=== PATIENT | female | born 1940 | race Caucasian/White ===

== ENCOUNTER 2020-03-24 12:30 | Outpatient (NON) | payer MEDICARE, SELFPAY ==
[2020-03-24 23:29] LABS: SARS-CoV-2 RNA PCR Positive
== END 2020-03-24 12:31 ==
LOC: ANHCOVIDDT 12:32
PROVIDERS: PCP Internal Medicine; Visit Provider Clinical Nurse Specialist
DX: U07.1 COVID-19 (principal)
CPT/HCPCS: C9803; U0003

== ENCOUNTER 2020-05-13 09:33 | Outpatient (CLI) | payer MEDICARE, SELFPAY ==
--- NOTE | ~2020-05-13 | US_ITS ---
EXAMINATION: US retroperitoneal comp, US retroperitoneal duplex ltd EXAM DATE: 05/13/2020 12:02 INDICATION: I10 - Essential (primary) hypertension HTN. TECHNIQUE: Multiple grayscale and Doppler images of the kidneys were obtained (by a technologist who performed the scan) and subsequently reviewed. Renal artery Dopplers. Compared to study dated 11/13/19 19. FINDINGS: There is bilateral renal cortical thinning. Right kidney: There is normal contour and increased echogenicity. It measures 9.5 x 5.0 x 5.0 centim eters. There are no focal renal lesions identified. There is no hydronephrosis. Left kidney: There is normal contour and increased echogenicity. It measures 8.5 x 3.5 x 4.0 centime ters. There are no focal renal lesions identified. There is no hydronephrosis. Bladder unremarkable. The aorta peak systolic velocity is 78 cm/s. The right renal artery peak systolic velocity is 140 cm/ s in the proximal segment, 87 cm/s in the mid segment, and 76 cm/s in the distal segment. The left re nal artery peak systolic velocity is 127 cm/s in the proximal segment, 225 cm/s in the mid segment, a nd 133 cm/s in the distal segment. Correlation made to noncontrast CT abdomen 03/01/2019 which demons trates small amount of arteriosclerosis at both renal artery origins. IMPRESSION: 1. Mildly elevated velocity in one out of 3 left renal artery readings, more likely spurious reading than renal artery stenosis given other 2 readings well within normal limits, and appearance on CT . 2. Echogenic renal cortices, medical renal disease. 3. Renal cortical thinning, atrophy. 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 Mildly elevated velocity in one out of 3 left renal artery readings, more l ikely spurious reading than renal artery stenosis given other 2 readings well w ithin normal limits, and appearance on CT 2018. 2. Echogenic renal cortices, medical renal disease. 3. Renal cortical thinning, atrophy.
[2020-05-13 10:24] LABS: Total Protein Urine Random 23 mg/dL
[2020-05-17 04:46] LABS: Albumin 4.3 g/dL (3.8-4.8); Alpha 1 Globulin 0.3 g/dL (0.2-0.3); Alpha 2 Globulin 0.9 g/dL (0.5-0.9); Beta 1 Globulin 0.5 g/dL (0.4-0.6); Gamma Globulin 0.7 g/dL (0.8-1.7)
[2020-05-17 13:51] LABS: Anti Nuclear Antibody Titer 1:40 (Negative)
== END 2020-05-13 09:34 | disposition home or self-care (01) ==
PROVIDERS: PCP Internal Medicine; Visit Provider Nurse Practitioner
DX: N17.9 Acute kidney failure, unspecified (principal); I12.9 Hypertensive chronic kidney disease with stage 1 through stage 4 chronic kidney disease, or unspecified chronic kidney disease; N18.30 Chronic kidney disease, stage 3 unspecified
CPT/HCPCS: 36415; 76770; 81050; 84155; 84156; 84165; 86038; 86039; 93976

== ENCOUNTER → 2020-10-08 09:49 | Outpatient (CLI) | payer MEDICARE, SELFPAY ==
--- NOTE | ~2020-10-08 | MR_ITS ---
EXAMINATION: MR brain/brain stem wo con EXAM DATE: 10/08/2020 10:49 INDICATION: R41.3 - Other amnesia other amnesia. Memory issues, forgetfulness. Difficulty with speech . History of colon and Breast cancer. TECHNIQUE: Magnetic resonance imaging (MRI) of the brain/brain stem obtained without contrast. Jose Alberto ohara T1, axial diffusion, gradient echo (T2*), T1, T2, FLAIR sequences obtained. Correlation is made t o head CT 2018. FINDINGS: There are no areas of restricted diffusion to suggest acute infarction. There is no acute hemorrhage seen on the T2*, a hemosiderin sensitive sequence. No intraparenchymal brain mass lesion. There is mild to moderate periventricular and subcortical T2/FLAIR signal hyperintensity, nonspecifi c but probably related to small vessel ischemic disease (microangiopathy). There is mild prominence of the sulci and ventricles related to cerebral atrophy. There are no extra-axial collections. Fl ow voids are seen in the cerebral arteries on the T2-weighted sequences consistent with their expecte d patency. Patient has had bilateral ocular lens surgery. Soft tissue is unremarkable. IMPRESSION: 1. No acute intracranial findings. 2. Chronic age related findings. Reviewed, dictated and finalized at location A.
[2020-10-08 10:19] LABS: Estimated Glomerular Filt Rate 27
== END ==
PROVIDERS: PCP Internal Medicine; Visit Provider Clinical Nurse Specialist
DX: R41.3 Other amnesia (principal)
CPT/HCPCS: 70551

== ENCOUNTER → 2020-11-09 09:42 | Outpatient (REF) | payer MEDICARE, SELFPAY | LOC: ANHLAB 09:42 | PROVIDERS: PCP Internal Medicine; Visit Provider Nurse Practitioner | DX: C44.719 Basal cell carcinoma of skin of left lower limb, including hip (principal) | CPT/HCPCS: 88305; 88331 ==

== ENCOUNTER 2020-11-21 00:41 | Observation (INO) | payer MEDICARE, SELFPAY ==
[2020-11-21] VITALS (9 sets, daily range): BP systolic 138–167; BP diastolic 52–59; PULSE 64–78; RESP 16–20; TEMP 36.4–36.5; O2SAT 95–100; BMI 22.1
--- NOTE | 2020-11-21 | ECHO_ITS ---
Patient Info Name: Nannette Nix Age: 80 years : 1940 Gender: Female Ht: 64 in Wt: 128 lbs BSA: 1.62 m2 HR: 68 bpm BP: 138 / 56 mmHg Heart Rhythm: Sinus Rhythm Technical Quality: Fair Exam Date: 11/21/2020 11:57 AM Exam Location: [facility] Pulmonary Patient Status: Outpatient Admit Date: 11/21/2020 Staff Ordering Physician: Guillermo Lal MD Neuro Intensivist Physician: LEANDRA Attending Provider: Guillermo Lal MD Referring Physician: Lukasz PERKINS; Exam Type: CA echo doppler color flow Study Info Complete two-dimentional, color flow and Doppler transthoracic echocardiogram is performed with agitated saline and with contrast to opacify the left ventricle and to improve the delineation of the left ventricle endocardial borders. Summary 1. Normal left ventricular size and function with good contractility of all segments. No segmental wall motion abnormality. Ejection fraction 66%. Grade 2 diastolic dysfunction is present. 2. Left atrial chamber dimension is mildly enlarged. 3. No pulmonary hypertension, estimated pulmonary arterial systolic pressure is 31 mmHg. 4. There is mild tricuspid valve regurgitation. 5. Normal sinus rhythm. Left Ventricle Left ventricular chamber dimension is normal. Left ventricular systolic function is normal, estimated at 65-70%. There is no increased left ventricular wall thickness. Left ventricular septal wall motion is normal. The left ventricular diastolic function is grade II diastolic dysfunction. Right Ventricle Right ventricular chamber dimension is normal. Right ventricular systolic function is normal. Left Atria Left atrial chamber dimension is mildly enlarged. Right Atria Right atrial chamber dimension is normal. Aortic Valve The aortic valve is trileaflet. There is no aortic valve sclerosis. There is no aortic valve stenosis. There is no aortic valve regurgitation. Pulmonic Valve The pulmonic valve is normal. There is no pulmonic valve stenosis. There is no pulmonic regurgitation. Mitral Valve The mitral valve has normal leaflets. There is no mitral valve stenosis. There is trace mitral valve regurgitation. Tricuspid Valve The tricuspid valve leaflets are normal. There is no significant tricuspid valve stenosis. There is mild tricuspid valve regurgitation. No pulmonary hypertension, estimated pulmonary arterial systolic pressure is 31 mmHg. Pericardium/Pleural The pericardium appears normal. There is no pericardial effusion. Inferior Vena Cava Normal inferior vena cava with >50% collapse upon inspiration consistent with Empty right atrial pressure, 10 mmHg. Aorta The aortic root size at the sinus of Valsalva is normal. The prox ascending aorta size is normal. Left Ventricular Outflow Tract Name Value Normal LVOT 2D LVOT Diameter 1.8 cm LVOT Doppler LVOT Peak Gradient 4 mmHg LVOT Mean Gradient 2 mmHg LVOT VTI 23 cm LVOT VTI/AV VTI Ratio 0.9 LVOT Stroke Volume 57 ml
--- NOTE | ~2020-11-21 | XR_ITS ---
EXAMINATION: XR chest 1V portable DATE: 11/21/2020 00:58 INDICATION: Chest pain TECHNIQUE: frontal view of the chest was obtained. COMPARISON: Chest radiograph dated 06/12/2018 FINDINGS: Unchanged eventration of the anterior right hemidiaphragm. Unchanged mild biapical pleural-parenchyma l scarring. No new airspace opacities, pulmonary edema, pleural effusion or pneumothorax. The cardiom ediastinal silhouette is normal with prominent left paracardial fat pad. Cholecystectomy clips in the right upper quadrant. IMPRESSION: 1. No acute cardiopulmonary disease. Reviewed, dictated and finalized at location A.
--- NOTE | 2020-11-21 00:49 | ECG_ITS ---
Measurements Intervals [place] Rate: 63 P: 35 [place]: 165 QRS: 34 QRSD: 98 T: 57 QT: 430 QTc: 443 Interpretive Statements SINUS RHYTHM BORDERLINE ST-T WAVE ABNORMALITY- ANT/HIGH LAT LEADS BASELINE ARTIFACT- I, II, III, AVR, AVL, AVF BORDERLINE ECG Electronically Signed On 11-21-2020 6:34:49 CDT by Andrea Jenkins D.O.
[2020-11-21 01:18] LABS: Basophils Percent Auto 0.6 % (0.2-1.2); Eosinophils Absolute Auto 0.1 K/mm3 (0-0.3); Eosinophils Percent Auto 0.8 % (0-4.4); Hematocrit 32.7 % (37.0-47.0); Hemoglobin 10.7 g/dL (12.0-15.0); Immature Granulocyte Absolute 0.02 K/mm3 (0.00-0.031); Immature Granulocyte Percent A 0.3 % (0-0.5); Lymphocytes Percent Auto 26.8 % (18.3-44.2); Mean Corpuscular HGB Conc 32.7 g/dl (32-36); Mean Corpuscular Volume 97.9 fl (80-100); Mean Platelet Volume 8.5 fl (7.4-10.4); Monocytes Absolute Auto 0.6 K/mm3 (0.1-0.6); Monocytes Percent Auto 9.1 % (2.6-8.5); Neutrophils Percent Auto 62.4 % (45.5-73.1); Platelet Count Result 243 k/mm3 (150-375); Red Blood Count 3.34 M/mm3 (4.2-5.4); Red Cell Distribution Width 13.1 % (11.5-14.5); White Blood Count 6.3 K/mm3 (4.5-10.0)
[2020-11-21 01:22] LABS: INR 0.9
[2020-11-21 01:23] LABS: Partial Thromboplastin Time 22.8 SECONDS (22.3-36.8)
[2020-11-21 01:27] LABS: Alanine Aminotransferase 89 U/L (4-35); Albumin Level 4.3 g/dL (3.5-5.1); Alkaline Phosphatase 126 U/L (38-126); Anion Gap 11 mmol/L (8-16); Aspartate Amino Transferase 180 U/L (14-36); Bilirubin,Total 0.5 mg/dL (0.2-1.3); Blood Urea Nitrogen 42 mg/dL (7-17); Calcium 9.4 mg/dL (8.4-10.2); Carbon Dioxide 17 mmol/L (22-30); Chloride 109 mmol/L (98-107); Estimated CRCL calculation 23 ml/min; Estimated Glomerular Filt Rate 33; Glucose 122 mg/dL (65-110); Potassium 4.3 mmol/L (3.4-5.0); Sodium 137 mmol/L (137-145)
[2020-11-21 01:39] LABS: Troponin I < 0.012 ng/mL (0.000-0.034)
[2020-11-21 03:02] LABS: Add Urine Microscopic? YES; Appearance Urine Clear (Clear); Bacteria Urine Trace /hpf; Bilirubin Urine Negative (Negative); Blood Urine Negative (Negative); Color Urine Yellow (Yellow); Glucose Urine UA Negative (Negative); Ketones Urine Negative (Negative); Leukocyte Esterase Ur 1+ LEU/UL (Negative); Mucus Urine Rare /lpf; Nitrate Urine Negative (Negative); Protein Urine Negative (Negative); RBC Urine 0-2 /hpf (0-2); Specific Grav Ur 1.015 (1.001-1.035); Urobilinogen Urine Negative mg/dL (<2.0); WBC Urine 16-20 /hpf
--- NOTE | 2020-11-21 04:29 | ED.CHESTPAIN ---
HPI - Chest Pain General Chief Complaint: Chest Pain Stated Complaint: chest pain/pressure Time Seen by Provider: 11/21/20 00:49 History of Present Illness HPI narrative: Patient presents with bilateral chest pain. Symptoms started approximate 1 hour prior to arrival to the ER. Her pain is constant was a pressure sensation there are any clear aggravating factors, and did not radiate. She called the ambulance as her symptoms were not improving she was given nitro in route and report her symptoms have greatly improved. She reports associated shortness of breath denies any nausea or diaphoresis. Related Data Home Medications Medication Instructions Recorded Confirmed acetaminophen [Tylenol] 650 mg PO PRN PRN 11/21/20 11/21/20 Allergies Allergy/AdvReac Type Severity Reaction Status Date / Time codeine Allergy Intermediate Rash Verified 11/21/20 06:13 Review of Systems Review of Systems: CONSTITUTIONAL: Denies fever, chills, or sweats. EYES: Denies visual changes, redness, or discharge. ENT: Denies rhinorrhea, congestion, sore throat, or otalgia. CARDIOVASCULAR: Denies palpitations, or edema. RESPIRATORY: Denies cough. GASTROINTESTINAL: Denies abdominal pain, nausea, vomiting, or diarrhea. GENITOURINARY: Denies dysuria or hematuria. SKIN: Denies rash or itching. MUSCULOSKELETAL: Denies back pain, joint pain, or myalgia. NEUROLOGIC: Denies headache, numbness, dizziness, or weakness. PSYCHIATRIC: Denies anxiety or depression. All systems reviewed & are unremarkable except as noted in HPI and below PMFSH Past Medical History Medical History Acute worsening of stage 3 chronic kidney disease Anemia Anxiety Basal cell carcinoma of face Breast cancer 1989 s/p lumpectomy to right, no chemo or radiation needed. Carotid stenosis Left 48% and right 55% 05/2018 Cholecystectomy planned 2013 CKD (chronic kidney disease) stage 3, GFR 30-59 ml/min Sees Dr. Willson COPD (chronic obstructive pulmonary disease) Deficient knowledge of combined anteroposterior colporrhaphy Depression Essential (primary) hypertension Former smoker GERD (gastroesophageal reflux disease) Hiatal hernia History of colon cancer Found after polyp removal, was removed with partial colectomy, no chemo or radiation needed Hyperlipidemia, unspecified Memory loss CECELIA (obstructive sleep apnea) Never completed sleep study Restless legs Shoulder arthritis Skin cancer of face Spinal stenosis Syncope 06/12/2018 Type 2 diabetes mellitus Diet controlled UTI (urinary tract infection) Vertigo Vitamin D deficiency Surgical History Surgical History H/O cataract removal with insertion of prosthetic lens H/O lumpectomy H/O: hysterectomy 1982 History of colonoscopy 2016 resulting in cauterization of a polyp and caused perforation requiring surgery and partial colon resection. History of partial surgical removal of colon Partial colectomy 2016 after polyp was removed and caused perforation of colon History of stress incontinence procedure using tension free vaginal tape Family History Family History Mother Cerebrovascular accident Hypertension Family history of transient ischemic attacks Sibling Family history of coronary artery disease Father Family history of transient ischemic attacks Patient's father is , Onset Age: 59 Family history of chronic obstructive pulmonary disease Colon cancer Other Family history of diabetes mellitus in first degree relative Social History Social History Social History: Patient smoked cigarettes 1-2 PPD for about 50 years and quit in 2012. She is exposed to second hand smoke. Denies alcohol use and drug use. She lives in [place] with her , Sid of 47 years. She has three daughter
[2020-11-21 04:43] LABS: Troponin I 0.012 ng/mL (0.000-0.034)
[2020-11-21] MEDS: SODIUM CHLORIDE 0.9% IV 1,000 ML 125 ML IV CONT ×2 (05:10→06:54)
--- NOTE | 2020-11-21 05:46 | ADMGEN ---
This patient, Nannette Nix, was admitted to Medical Room 348-01. Patient/family oriented to hospital policies and general routines including ID bracelet, bed and alarms, visiting hours, pain management, procedures, bathroom and other care routines, personal items, smoking policy, room service/diet, and visiting hours. Information on how to activate the Rapid Response Team has been discussed. Patient/Family are encouraged to report perceived risks to care and to ask questions if they do not understand what they are told or what they should do.
[2020-11-21 08:09] LABS: Troponin I < 0.012 ng/mL (0.000-0.034)
--- NOTE | 2020-11-21 09:26 | PM.IMHP ---
H&P: HPI History of Present Illness Date/Time: 11/21/20 09:26 Chief Complaint: Chest pain Narrative: This is a very pleasant 80-year-old woman who lives alone, who was brought to the emergency department last night for evaluation of chest pain. She has past medical history of hypertension, hyperlipidemia, GERD, depression, recent basal cell carcinoma removed from her left leg, CKD stage 3, and history of nicotine dependence. She reports that she was asleep and then woke up suddenly with significant chest pain is retrosternal, and felt burning and nature, although there was also a pressure component. This was associated with some shortness of breath. This is the part that worried her and she called her family and ultimately was transported to the ED. Reported some radiation to bilateral shoulders. No nausea, vomiting, or diaphoresis. She is unsure whether it is worse with activity or position although does not seem to be the case. In route to the hospital was given nitro with significant improvement. Currently it is resolved 0/10. She does have history of GERD. She is only on famotidine at home. Unclear why she is not on a PPI. She has history of hypertension for which he is on amlodipine and losartan. She has hyperlipidemia for which she is on atorvastatin. She is not diabetic that she is aware of. Family history of mother with coronary disease in her 60s. She smoked in the past for many years and quit 6 years ago. Review of Systems Review of Systems: All systems reviewed & are unremarkable except as noted in HPI and below PMFSH Past Medical History Medical History Acute worsening of stage 3 chronic kidney disease Anemia Anxiety Basal cell carcinoma of face Breast cancer 1989 s/p lumpectomy to right, no chemo or radiation needed. Carotid stenosis Left 48% and right 55% 05/2018 Cholecystectomy planned 2013 CKD (chronic kidney disease) stage 3, GFR 30-59 ml/min Sees Dr. Willson COPD (chronic obstructive pulmonary disease) Deficient knowledge of combined anteroposterior colporrhaphy Depression Essential (primary) hypertension Former smoker GERD (gastroesophageal reflux disease) Hiatal hernia History of colon cancer Found after polyp removal, was removed with partial colectomy, no chemo or radiation needed Hyperlipidemia, unspecified Memory loss CECELIA (obstructive sleep apnea) Never completed sleep study Restless legs Shoulder arthritis Skin cancer of face Spinal stenosis Syncope 06/12/2018 Type 2 diabetes mellitus Diet controlled UTI (urinary tract infection) Vertigo Vitamin D deficiency Surgical History Surgical History H/O cataract removal with insertion of prosthetic lens H/O lumpectomy H/O: hysterectomy 1982 History of colonoscopy 2016 resulting in cauterization of a polyp and caused perforation requiring surgery and partial colon resection. History of partial surgical removal of colon Partial colectomy 2016 after polyp was removed and caused perforation of colon History of stress incontinence procedure using tension free vaginal tape Family History Family History Mother Cerebrovascular accident Hypertension Family history of transient ischemic attacks Sibling Family history of coronary artery disease Father Family history of transient ischemic attacks Patient's father is , Onset Age: 59 Family history of chronic obstructive pulmonary disease Colon cancer Other Family history of diabetes mellitus in first degree relative Social History Social History Social History: Patient smoked cigarettes 1-2 PPD for about 50 years and quit in 2012. She is exposed to second hand smoke. Denies alcohol use and drug use. She lives in [place] with her ,
--- NOTE | 2020-11-21 11:25 | PC.NURSE ---
unable to give 0900 atorvastatin, pepcid, prozac, amlodipine, and cozaar on time, waiting for pharmacy to send them, pharmacy notified.
[2020-11-21] MEDS: FLUoxetine HCL 20 MG CAPSULE PO (11:53)
[2020-11-21] MEDS: FAMOTIDINE 10 MG TABLET PO (11:53)
[2020-11-21] MEDS: LOSARTAN POTASSIUM 50 MG TABLET PO (11:53)
[2020-11-21] MEDS: ATORVASTATIN 20 MG TABLET PO (11:53)
[2020-11-21] MEDS: amLODIPine BESYLATE 5 MG TABLET 10 MG PO (11:53)
[2020-11-21] MEDS: PANTOPRAZOLE 40 MG TABLET PO (11:53)
--- NOTE | 2020-11-21 13:48 | PM.CNCAR ---
Assessment and Plan Assessment and plan (1) Chest pain: Qualifiers: Chest pain type: unspecified Qualified Code(s): R07.9 - Chest pain, unspecified Code(s): R07.9 - Chest pain, unspecified Status: Acute Assessment and Plan: Patient's description of her CP is consistent with acute coronary syndrome. However all her troponins are negative and there are no wall motion abnormalities on her Echo. Her EKG does have some ST changes but these appear chronic. She does have multiple risk factors for CAD. Although OH has been ruled out, I think she needs further evaluation. She appears to be a low risk pt for discharge. Will have patient ambulate in the halls; if no problems perhaps discharge this afternoon for outpatient follow-up. Add aspirin 81 mg daily. Patient states that aspirin does not agree with her stomach but she has not tried low-dose. If she has problems with this then we can change to Plavix. TNG prn Change amlodipine to metoprolol XL 25 mg daily. Outpatient Lexiscan Patient will call if she has further problems. (2) Essential (primary) hypertension: Code(s): I10 - Essential (primary) hypertension Status: Acute Assessment and Plan: Controlled. (3) Hyperlipidemia, unspecified: Qualifiers: Hyperlipidemia type: unspecified Qualified Code(s): E78.5 - Hyperlipidemia, unspecified Code(s): E78.5 - Hyperlipidemia, unspecified Status: Acute Assessment and Plan: Takes atorvastatin (4) Carotid stenosis: Qualifiers: Laterality: bilateral Qualified Code(s): I65.23 - Occlusion and stenosis of bilateral carotid arteries Code(s): I65.29 - Occlusion and stenosis of unspecified carotid artery Status: Acute Assessment and Plan: Carotid ultrasound in 2019 showed moderate bilateral disease and she has a prominent left carotid bruit. Patient is unaware that she has carotid stenosis Treat with anti-platelet agent and atorvastatin. (5) Chronic kidney disease, stage 3: Code(s): N18.30 - Chronic kidney disease, stage 3 unspecified Status: Acute Assessment and Plan: STage , GFR 33 ml/min (6) Chronic anemia: Code(s): D64.9 - Anemia, unspecified Status: Acute Assessment and Plan: Possibly 2nd to CKD. FE level good at 66 in Apr 2020 and not microcytic. (7) Elevated LFTs: Code(s): R79.89 - Other specified abnormal findings of blood chemistry Status: Acute Assessment and Plan: 2d to statin? (8) GERD (gastroesophageal reflux disease): Code(s): K21.9 - Gastro-esophageal reflux disease without esophagitis Status: Acute Assessment and Plan: Change famotidine to a PPI? History of Present Illness History of Present Illness Consult date/time: 11/21/20 13:48 Requesting physician: Guillermo Lal MD Consult reason: chest pain Reason For Visit: Chest Pain Narrative: Date of service 11/21/2020: Ms. Nannette Nix is an 80-year-old female whom I was asked to see at the request of Dr. Lal for my advice and opinion regarding her chest pain in consultation. She has hypertension, hyperlipidemia and carotid disease but no history of any heart problems. The patient was in normal state of health yesterday although she had some diarrhea, which is not terribly unusual for her. She was in bed watching TV and Around midnightdeveloped substernal chest heaviness like someone was sitting on her, associated with shortness of breath. There is no radiation and no pleuritic component. it seemed to be getting worse so she called her daughters who called EMS. she was given 2 nitroglycerins with resolution and has had no further discomfort today. Typically the patient is active with yd work and has no partic
--- NOTE | 2020-11-21 13:53 | ECG_ITS ---
Measurements Intervals [place] Rate: 70 P: 42 [place]: 187 QRS: 38 QRSD: 92 T: 62 QT: 401 QTc: 433 Interpretive Statements SINUS RHYTHM BORDERLINE ST ABNORMALITY- ANTEROLAT/HIGH LAT LEADS BASELINE ARTIFACT- I, II, III, AVR, AVL, AVF, V1 BORDERLINE ECG Electronically Signed On 11-21-2020 17:18:36 CDT by Andrea Jenkins D.O.
--- NOTE | 2020-11-21 15:47 | PM.DS ---
DS: Admitting Diagnosis Admitting Diagnosis Chest pain DS: Discharge Diagnosis Discharge Diagnosis (1) Elevated LFTs: Code(s): R79.89 - Other specified abnormal findings of blood chemistry Status: Acute (2) GERD (gastroesophageal reflux disease): Code(s): K21.9 - Gastro-esophageal reflux disease without esophagitis Status: Acute (3) Chronic kidney disease, stage 3: Code(s): N18.30 - Chronic kidney disease, stage 3 unspecified Status: Acute (4) Angina pectoris: Code(s): I20.9 - Angina pectoris, unspecified Status: Acute DS: Summary Hospital Course Hospital Course: This is a very pleasant 80-year-old woman who lives independently at home, who was brought to the emergency department 11/20 night for evaluation of chest pain. She has past medical history of hypertension, hyperlipidemia, GERD, depression, recent basal cell carcinoma removed from her left leg, CKD stage 3, and history of nicotine dependence. She reports that she was asleep and then woke up suddenly with significant chest pain is retrosternal, and felt burning and nature, although there was also a pressure component. This was associated with some shortness of breath. This is the part that worried her and she called her family and ultimately was transported to the ED. Reported some radiation to bilateral shoulders. No nausea, vomiting, or diaphoresis. In route to the hospital was given nitro with significant improvement. It was resolved when she was followed in the medical unit. She does have history of GERD. She is only on famotidine at home. She has history of hypertension for which he is on amlodipine and losartan. She has hyperlipidemia for which she is on atorvastatin. She is not diabetic that she is aware of. Family history of mother with coronary disease in her 60s. She smoked in the past for many years and quit 6 years ago. She was admitted to the hospital for close monitoring and echocardiogram was done showing normal left ventricular size and function, EF 66%, grade 2 diastolic dysfunction as noted, no pulmonary hypertension, mild tricuspid valve regurgitation, no wall motion abnormalities noted. Her EKG did show some ST-T wave abnormalities that were noted on prior EKG with no change. Her troponins were followed and were all negative. Throughout her hospital stay she did not have recurrence of her chest pain. She was evaluated by Cardiology. Her atorvastatin was continued. She was initiated on baby aspirin. Her amlodipine was changed to metoprolol. Plan for outpatient Lexiscan. Given question possible contribution updated to her symptoms, pantoprazole was initiated. Continue on daily basis in the outpatient setting this is symptoms. Elevated liver function tests were noted on presentation. These have been elevated and fluctuated since at least 2018. The etiology is unclear. Recommend outpatient follow-up reassessment. She was noted to have mild degree of anemia during the hospitalization. This was stable from prior. Likely in the setting of her moderate chronic kidney disease. From a renal perspective, her creatinine baseline noted to be 1.4-1.8, and she was noted to be a baseline kidney function which should continue to be monitored in the outpatient setting. She did describe some urinary tract infection symptoms on presentation. Urinalysis was suggestive of infection. She was initiated on ceftriaxone. Culture was pending at the time of discharge. Will be discharged on ciprofloxacin twice daily for 5 days. Time Spent with Patient Time attestation: Total time spent providing and/or coordinating discharge services: 26 min Exam Narrative: Gen: Alert, NAD Abd: Soft, NT, ND Heart: RRR Lungs: CTAB Ext: No lower extremity edema DS: Data Data Completed and Pending Labs on day of discharge: Labs from last 24 hours 11/21/20 11/21/20 11/21/20 07:39 04:09 02:44 WBC RBC Hgb Hct M
== END 2020-11-21 17:55 | disposition home or self-care (01) ==
LOC: ANHED 04:35 → ANH3MED 05:06
PROVIDERS: Admitting Provider Internal Medicine; Emergency Provider Emergency Medicine; PCP Internal Medicine; Visit Provider Internal Medicine Nephrology
DX: I20.9 Angina pectoris, unspecified (principal); I12.9 Hypertensive chronic kidney disease with stage 1 through stage 4 chronic kidney disease, or unspecified chronic kidney disease; R79.89 Other specified abnormal findings of blood chemistry; K21.9 Gastro-esophageal reflux disease without esophagitis; E11.22 Type 2 diabetes mellitus with diabetic chronic kidney disease; N18.30 Chronic kidney disease, stage 3 unspecified; E78.5 Hyperlipidemia, unspecified; F32.9 Major depressive disorder, single episode, unspecified; Z85.828 Personal history of other malignant neoplasm of skin; Z85.3 Personal history of malignant neoplasm of breast; Z87.891 Personal history of nicotine dependence; R06.02 Shortness of breath; N39.0 Urinary tract infection, site not specified; I65.23 Occlusion and stenosis of bilateral carotid arteries; D64.9 Anemia, unspecified
CPT/HCPCS: 36415; 71045; 80053; 81001; 84484; 85025; 85610; 85730; 87086; 87088; 93005; 93306; 96361; 96365; 99285; A9270; G0378; J0696; J7030

== ENCOUNTER 2021-01-20 11:00 | Emergency (ER) | payer MEDICARE, SELFPAY ==
[2021-01-20] VITALS (14 sets, daily range): BP systolic 155–197; BP diastolic 63–102; PULSE 54–75; RESP 14–34; TEMP 36.3–36.7; O2SAT 98–100
--- NOTE | ~2021-01-20 | XR_ITS ---
EXAMINATION: XR chest 2V DATE: 01/20/2021 12:55 INDICATION: Intermittent epigastric pain TECHNIQUE: PA and lateral views of the chest were obtained. COMPARISON: Chest radiograph dated 11/21/2020 FINDINGS: Unchanged eventration of the anterior right hemidiaphragm. Mild reticular opacities at the left lower lung zone which appears to correspond to a region of bronchiectatic change on the CT of the abdomen dated 03/01/2019. No new airspace opacities, pulmonary edema, pleural effusion or pneumothorax. The c ardiomediastinal silhouette is normal. Cholecystectomy clips in right upper quadrant. IMPRESSION: 1. Chronic mild bronchiectatic changes in the left lower lobe. No acute cardiopulmonary disease. Reviewed, dictated and finalized at location A. IMPRESSION: 1. Chronic mild bronchiectatic changes in the left lower lobe. No acute cardiop ulmonary disease.
--- NOTE | 2021-01-20 12:31 | ECG_ITS ---
Measurements Intervals [place] Rate: 64 P: 39 CT: 151 QRS: 43 QRSD: 94 T: 63 QT: 413 QTc: 426 Interpretive Statements SINUS RHYTHM ST ABNORMALITY IN ANTEROLATERAL LEADS- CONSIDER ISCHEMIA BASELINE ARTIFACT- I, III, AVR, AVL ABNORMAL ECG Electronically Signed On 01-20-2021 12:50:26 CDT by Andrea Jenkins D.O.
[2021-01-20 12:47] LABS: Basophils Percent Auto 0.5 % (0.2-1.2); Eosinophils Percent Auto 0.3 % (0-4.4); Hematocrit 32.8 % (37.0-47.0); Hemoglobin 10.9 g/dL (12.0-15.0); Immature Granulocyte Absolute 0.02 K/mm3 (0.00-0.031); Immature Granulocyte Percent A 0.3 % (0-0.5); Lymphocytes Absolute Auto 1.37 K/mm3 (0.9-3.2); Lymphocytes Percent Auto 18.2 % (18.3-44.2); Mean Corpuscular HGB Conc 33.2 g/dl (32-36); Mean Corpuscular Hemoglobin 32.6 pg (26-34); Mean Corpuscular Volume 98.2 fl (80-100); Mean Platelet Volume 8.3 fl (7.4-10.4); Monocytes Absolute Auto 0.6 K/mm3 (0.1-0.6); Monocytes Percent Auto 7.6 % (2.6-8.5); Neutrophils Absolute Auto 5.5 K/mm3 (1.3-6.7); Neutrophils Percent Auto 73.1 % (45.5-73.1); Platelet Count Result 219 k/mm3 (150-375); Red Blood Count 3.34 M/mm3 (4.2-5.4); Red Cell Distribution Width 12.7 % (11.5-14.5); White Blood Count 7.5 K/mm3 (4.5-10.0)
[2021-01-20 13:00] LABS: Partial Thromboplastin Time 24.6 SECONDS (22.3-36.8); Prothrombin Time 13.2 Seconds (11.1-14.7)
[2021-01-20 13:05] LABS: Anion Gap 11 mmol/L (8-16); Blood Urea Nitrogen 35 mg/dL (7-17); Calcium 9.4 mg/dL (8.4-10.2); Carbon Dioxide 24 mmol/L (22-30); Chloride 105 mmol/L (98-107); Estimated CRCL calculation 21 ml/min; Estimated Glomerular Filt Rate 33; Glucose 120 mg/dL (65-110); Potassium 3.9 mmol/L (3.4-5.0); Sodium 140 mmol/L (137-145)
[2021-01-20 13:17] LABS: Troponin I < 0.012 ng/mL (0.000-0.034)
--- NOTE | 2021-01-20 15:31 | ED.RECABL ---
HPI - Recheck/Abnormal Lab/Rx General Chief Complaint: Recheck/Abnormal Lab/Rx Stated Complaint: high blood pressure Time Seen by Provider: 01/20/21 14:58 Source: patient and family Mode of arrival: ambulatory Limitations: no limitations History of Present Illness HPI narrative: This is a 80 year old female that presents to the ER for high blood pressure. Reports since yesterday she has been having episodes of a burning pain that radiates from her toes all the way into her chest. This lasts for a couple of minutes and resolves on its own. They have been taking her blood pressure at home. It has been elevated to the 200s systolic. Reports they called her primary today who prompted them to bring her to the ER for evaluation. Denies fever, shortness of breath, cough, vomiting, or dysuria. Related Data Home Medications Medication Instructions Recorded Confirmed acetaminophen [Tylenol] 650 mg PO PRN PRN 11/21/20 11/27/20 Allergies Allergy/AdvReac Type Severity Reaction Status Date / Time codeine Allergy Intermediate Rash Verified 11/21/20 06:13 Review of Systems Review of Systems: CONSTITUTIONAL: Denies fever CARDIOVASCULAR: Denies chest pain or edema. RESPIRATORY: Denies cough or dyspnea. GASTROINTESTINAL: Denies abdominal pain, nausea, vomiting GENITOURINARY: Denies dysuria NEUROLOGIC: Denies numbness, or weakness. All systems reviewed & are unremarkable except as noted in HPI and below PMFSH Past Medical History Medical History Acute worsening of stage 3 chronic kidney disease Anemia Anxiety Basal cell carcinoma of face Breast cancer 1989 s/p lumpectomy to right, no chemo or radiation needed. Carotid stenosis Left 48% and right 55% 05/2018 Cholecystectomy planned 2013 CKD (chronic kidney disease) stage 3, GFR 30-59 ml/min Sees Dr. Willson COPD (chronic obstructive pulmonary disease) Deficient knowledge of combined anteroposterior colporrhaphy Depression Essential (primary) hypertension Former smoker GERD (gastroesophageal reflux disease) Hiatal hernia History of colon cancer Found after polyp removal, was removed with partial colectomy, no chemo or radiation needed Hyperlipidemia, unspecified Memory loss CECELIA (obstructive sleep apnea) Never completed sleep study Restless legs Shoulder arthritis Skin cancer of face Spinal stenosis Syncope 06/12/2018 Type 2 diabetes mellitus Diet controlled UTI (urinary tract infection) Vertigo Vitamin D deficiency Surgical History Surgical History H/O cataract removal with insertion of prosthetic lens H/O lumpectomy H/O: hysterectomy 1982 History of colonoscopy 2016 resulting in cauterization of a polyp and caused perforation requiring surgery and partial colon resection. History of partial surgical removal of colon Partial colectomy 2016 after polyp was removed and caused perforation of colon History of stress incontinence procedure using tension free vaginal tape Family History Family History Mother Cerebrovascular accident Hypertension Family history of transient ischemic attacks Sibling Family history of coronary artery disease Father Family history of transient ischemic attacks Patient's father is , Onset Age: 59 Family history of chronic obstructive pulmonary disease Colon cancer Other Family history of diabetes mellitus in first degree relative Social History Social History Social History: Patient smoked cigarettes 1-2 PPD for about 50 years and quit in 2012. She is exposed to second hand smoke. Denies alcohol use and drug use. She lives in [place] alone. She previously was to , Sid of 47 years. She has three daughters. 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 Smoking status: Angelia
--- NOTE | 2021-01-20 16:20 | PC.NURSE ---
RN to bedside to start IV and administer ordered meds. Pt denies any complaints currently, states she feels she does not need the ordered medication and also states that she would like to go home if medically cleared. Pt informed of need for urine specimen, given cup and patient walking to bathroom to provide specimen. Will speak with MD.
[2021-01-20 16:21] LABS: Alanine Aminotransferase 41 U/L (4-35); Albumin Level 4.7 g/dL (3.5-5.1); Alkaline Phosphatase 106 U/L (38-126); Aspartate Amino Transferase 44 U/L (14-36); Bilirubin,Total 0.6 mg/dL (0.2-1.3); Lipase 277 U/L (23-300)
[2021-01-20 16:25] LABS: Troponin I < 0.012 ng/mL (0.000-0.034)
[2021-01-20 16:53] LABS: NT Pro B Type Natriuretic Pept 653 pg/mL (5-100)
[2021-01-20 17:00] LABS: Add Urine Microscopic? YES; Appearance Urine Clear (Clear); Bilirubin Urine Negative (Negative); Blood Urine Negative (Negative); Color Urine Yellow (Yellow); Glucose Urine UA Negative (Negative); Ketones Urine Negative (Negative); Leukocyte Esterase Ur Negative LEU/UL (Negative); Mucus Urine Rare /lpf; Nitrate Urine Negative (Negative); Protein Urine 2+ mg/dL (Negative); Specific Grav Ur 1.023 (1.001-1.035); Squamous Epithelial Cell Urine Rare /hpf (Few); Urobilinogen Urine Negative mg/dL (<2.0); WBC Urine 0-3 /hpf
[2021-01-20] MEDS: LOSARTAN POTASSIUM 50 MG TABLET PO (18:00)
== END 2021-01-20 19:31 | disposition home or self-care (01) ==
PROVIDERS: Emergency Medicine; Physician Assistant; Emergency Provider Emergency Medicine; PCP Internal Medicine
DX: I12.9 Hypertensive chronic kidney disease with stage 1 through stage 4 chronic kidney disease, or unspecified chronic kidney disease (principal); N18.30 Chronic kidney disease, stage 3 unspecified; E11.22 Type 2 diabetes mellitus with diabetic chronic kidney disease; D64.9 Anemia, unspecified; J44.9 Chronic obstructive pulmonary disease, unspecified; E78.5 Hyperlipidemia, unspecified; G47.30 Sleep apnea, unspecified; K21.9 Gastro-esophageal reflux disease without esophagitis; E55.9 Vitamin D deficiency, unspecified; G25.81 Restless legs syndrome; F41.9 Anxiety disorder, unspecified; F32.9 Major depressive disorder, single episode, unspecified; Z85.038 Personal history of other malignant neoplasm of large intestine; Z85.3 Personal history of malignant neoplasm of breast; Z85.828 Personal history of other malignant neoplasm of skin; Z87.440 Personal history of urinary (tract) infections; Z98.49 Cataract extraction status, unspecified eye; Z96.1 Presence of intraocular lens; Z90.49 Acquired absence of other specified parts of digestive tract; Z77.22 Contact with and (suspected) exposure to environmental tobacco smoke (acute) (chronic); Z87.891 Personal history of nicotine dependence; R94.31 Abnormal electrocardiogram [ECG] [EKG]; R91.8 Other nonspecific abnormal finding of lung field
CPT/HCPCS: 36415; 71046; 80048; 80076; 81001; 83690; 83880; 84484; 85025; 85610; 85730; 93005; 99284; A9270

== ENCOUNTER 2021-03-12 10:38 | Emergency (ER) | payer MEDICARE, SELFPAY ==
--- NOTE | ~2021-03-12 | CT_ITS ---
EXAMINATION: CT abdomen pelvis wo con DATE: 03/12/2021 15:05 INDICATION: Diarrhea. Elevated lipase. TECHNIQUE: Computed tomography (CT) of the abdomen and pelvis was performed without intravenous contr ast. Automated exposure control and iterative reconstruction technique were employed. The dose-length product was 239.03 mGy-cm. COMPARISON: None FINDINGS: Chronic small region of subpleural likely radiation fibrosis along the anterior right middle lobe. Mi nimal scarring is fissure with a couple small calcified nodules in the right middle lobe consistent w ith old granulomatous disease. Mild bronchiectasis the lung bases most prominent in the anterobasilar left lower lobe. The prior 9 mm left lower lobe nodule has resolved. Heart size is normal. Atheroscl erotic coronary artery calcific location. No pericardial or pleural effusion. Small sliding-type hiat al hernia. Cholecystectomy clips the gallbladder fossa. Liver, spleen, pancreas and bilateral adrenal glands are normal. Likely age-related mild to moderate bilateral renal cortical atrophy. Cluster of 3 stones measuring 3-5 mm at the lower pole of the left kidney. No ureteral stones or hydronephrosis. Fluid throughout the colon consistent with diarrhea. Postoperative change of prior right hemicolecto my with ileocolic anastomosis in the right lower quadrant. No bowel obstruction. Bladder is normal. N o free intraperitoneal gas or fluid. No pathologically enlarged abdominal or pelvic lymphadenopathy. There is calcified atherosclerosis of the aorta and many of the other arteries. Severe lumbar spondyl osis. IMPRESSION: 1. Normal appearance of the pancreas although mild acute interstitial pancreatitis can be radiographi deborah occult. 2. Fluid throughout the colon consistent with diarrhea. No other acute intra-abdominal/pelvic process . 3. Small sliding-type hiatal hernia. 4. Likely age-related moderate bilateral renal cortical atrophy with nonobstructing left nephrolithia sis. Reviewed, dictated and finalized at location H. [employer] IMPRESSION: 1. Normal appearance of the pancreas although mild acute interstitial pancreati tis can be radiographically occult. 2. Fluid throughout the colon consistent with diarrhea. No other acute intra-ab dominal/pelvic process. 3. Small sliding-type hiatal hernia. 4. Likely age-related moderate bilateral renal cortical atrophy with nonobstruc ting left nephrolithiasis.
[2021-03-12 11:20] VITALS: BP 144/52; PULSE 66; RESP 26; TEMP 36.8; O2SAT 100
[2021-03-12 11:36] LABS: Basophils Percent Auto 0.4 % (0.2-1.2); Eosinophils Percent Auto 0.4 % (0-4.4); Hematocrit 34.6 % (37.0-47.0); Hemoglobin 11.6 g/dL (12.0-15.0); Immature Granulocyte Absolute 0.04 K/mm3 (0.00-0.031); Immature Granulocyte Percent A 0.5 % (0-0.5); Lymphocytes Absolute Auto 1.32 K/mm3 (0.9-3.2); Lymphocytes Percent Auto 16.4 % (18.3-44.2); Mean Corpuscular HGB Conc 33.5 g/dl (32-36); Mean Corpuscular Volume 95.6 fl (80-100); Mean Platelet Volume 8.3 fl (7.4-10.4); Monocytes Absolute Auto 0.6 K/mm3 (0.1-0.6); Monocytes Percent Auto 7.7 % (2.6-8.5); Neutrophils Percent Auto 74.6 % (45.5-73.1); Platelet Count Result 278 k/mm3 (150-375); Red Blood Count 3.62 M/mm3 (4.2-5.4); Red Cell Distribution Width 13.2 % (11.5-14.5)
[2021-03-12 11:51] LABS: Alanine Aminotransferase 60 U/L (4-35); Albumin Level 4.4 g/dL (3.5-5.1); Alkaline Phosphatase 118 U/L (38-126); Anion Gap 11 mmol/L (8-16); Aspartate Amino Transferase 41 U/L (14-36); Bilirubin,Total 0.5 mg/dL (0.2-1.3); Blood Urea Nitrogen 40 mg/dL (7-17); Calcium 9.4 mg/dL (8.4-10.2); Carbon Dioxide 18 mmol/L (22-30); Chloride 106 mmol/L (98-107); Estimated CRCL calculation 20 ml/min; Estimated Glomerular Filt Rate 27; Glucose 118 mg/dL (65-110); Potassium 4.3 mmol/L (3.4-5.0); Sodium 135 mmol/L (137-145)
--- NOTE | 2021-03-12 11:54 | PC.NURSE ---
Pt unable to give urine sample at this time
[2021-03-12 12:20] LABS: Lipase 9165 U/L (23-300)
--- NOTE | 2021-03-12 12:36 | ED.NAVMDI ---
HPI - Nausea/Vomiting/Diarrhea General Chief complaint: Nausea/Vomiting/Diarrhea Stated complaint: diarrhea Time Seen by Provider: 03/12/21 12:19 Source: patient and family Mode of arrival: ambulatory Limitations: no limitations History of Present Illness HPI Narrative: Patient is an 80-year-old female complaining of diarrhea, loose watery, nonbloody x1 week. Patient denies any abdominal pain, nausea, vomiting, fever or chills. Patient denies any recent hospitalization or antibiotic use. Patient has no other complaints. Related Data Home Medications Medication Instructions Recorded Confirmed acetaminophen [Tylenol] 650 mg PO PRN PRN 11/21/20 01/28/21 Allergies Allergy/AdvReac Type Severity Reaction Status Date / Time codeine Allergy Intermediate Rash Verified 11/21/20 06:13 Review of Systems Review of Systems: All systems reviewed & are unremarkable except as noted in HPI and below Constitutional: Constitutional: Denies body ache(s), Denies chills, Denies excessive sweating, Denies fatigue, Denies fever(s), Denies headache(s), Denies lethargy, Denies malaise, Denies weakness and Denies weight loss Eyes: Eyes: Denies blurry vision, Denies change in vision and Denies loss of vision ENT: Denies dizziness, Denies ear discharge, Denies headache(s), Denies lip swelling, Denies epistaxis, Denies nasal congestion, Denies neck pain, Denies throat swelling and Denies tongue swelling Cardiovascular: Cardiovascular: Denies chest pain, Denies chest pain at rest, Denies chest pain with activity, Denies diaphoresis, Denies rapid heart rate, Denies edema, Denies irregular heart rhythm, Denies lightheadedness, Denies palpitations, Denies dyspnea and Denies dyspnea on exertion Respiratory: Respiratory: Denies chest congestion, Denies cough, Denies hemoptysis, Denies dyspnea and Denies dyspnea on exertion Gastrointestinal: Gastrointestinal: Denies abdominal pain, Denies melena, Denies hematochezia, Denies nausea, Denies vomiting and Denies hematemesis Musculoskeletal: Musculoskeletal: Denies abnormal gait, Denies deformity, Denies joint swelling, Denies limited range of motion, Denies neck pain and Denies numbness Neurologic: Denies Abnormal speech present, Denies abnormal gait, Denies confusion, Denies dizziness, Denies headache(s), Denies focal weakness, Denies loss of vision, Denies numbness, Denies Other visual disturbances, Denies Sensory deficit (Neuro) and Denies weakness Psychiatric: Psychiatric: Denies confusion, Denies depression, Denies auditory hallucinations, Denies homicidal ideation and Denies suicidal ideation Endocrine: Endocrine: Denies cold intolerance, Denies excessive sweating, Denies fatigue, Denies heat intolerance and Denies palpitations Hematologic/Lymphatic: Hematologic/Lymphatic: Denies easy bleeding and Denies easy bruising Allergic/Immunologic: Allergic/Immunologic: Denies lip swelling, Denies throat swelling and Denies tongue swelling PMFSH Past Medical History Medical History Acute worsening of stage 3 chronic kidney disease Anemia Anxiety Basal cell carcinoma of face Breast cancer 1989 s/p lumpectomy to right, no chemo or radiation needed. Carotid stenosis Left 48% and right 55% 05/2018 Cholecystectomy planned 2013 CKD (chronic kidney disease) stage 3, GFR 30-59 ml/min Sees Dr. Willson COPD (chronic obstructive pulmonary disease) Deficient knowledge of combined anteroposterior colporrhaphy Depression Essential (primary) hypertension Former smoker GERD (gastroesophageal reflux disease) Hiatal hernia History of colon cancer Found after polyp removal, was removed with partial colectomy, no chemo or radiation needed Hyperlipidemia, unspecified Memory loss CECELIA (obstructive sleep apnea) Never completed sleep study Restless legs Shoulder arthritis Skin cancer of face Spinal stenosis Syncope 06/12/2018 Type 2 diabetes mellitus Diet controlled
[2021-03-12] MEDS: LACTATED RINGERS 1,000 ML 999 ML IV CONT (12:49)
[2021-03-12 13:00] VITALS: BP 135/50; PULSE 65; RESP 22; O2SAT 100
[2021-03-12 15:16] VITALS: BP 140/74; PULSE 78; RESP 18; O2SAT 100
[2021-03-12] MEDS: metroNIDAZOLE 250 MG TABLET 500 MG PO (15:58)
== END 2021-03-12 16:07 | disposition home or self-care (01) ==
PROVIDERS: Emergency Medicine; Emergency Provider Emergency Medicine; PCP Internal Medicine
DX: R74.8 Abnormal levels of other serum enzymes (principal); R19.7 Diarrhea, unspecified; I12.9 Hypertensive chronic kidney disease with stage 1 through stage 4 chronic kidney disease, or unspecified chronic kidney disease; E11.22 Type 2 diabetes mellitus with diabetic chronic kidney disease; N18.30 Chronic kidney disease, stage 3 unspecified; J44.9 Chronic obstructive pulmonary disease, unspecified; E78.5 Hyperlipidemia, unspecified; Z87.891 Personal history of nicotine dependence; Z85.3 Personal history of malignant neoplasm of breast; Z85.038 Personal history of other malignant neoplasm of large intestine
CPT/HCPCS: 36415; 74176; 80053; 83690; 85025; 96360; 99284; A9270; J7120

== ENCOUNTER 2021-03-30 06:05 | Emergency (ER) | payer MEDICARE, SELFPAY ==
[2021-03-30 06:19] VITALS: BP 159/73; PULSE 79; RESP 22; TEMP 36.6; O2SAT 100
[2021-03-30 06:27] VITALS: O2SAT 100
[2021-03-30 07:13] VITALS: BP 111/66; PULSE 73; RESP 18; O2SAT 100
[2021-03-30 07:22] LABS: Basophils Percent Auto 0.5 % (0.2-1.2); Eosinophils Percent Auto 0.7 % (0-4.4); Hematocrit 37.3 % (37.0-47.0); Hemoglobin 12.1 g/dL (12.0-15.0); Immature Granulocyte Absolute 0.02 K/mm3 (0.00-0.031); Immature Granulocyte Percent A 0.3 % (0-0.5); Lymphocytes Absolute Auto 1.34 K/mm3 (0.9-3.2); Lymphocytes Percent Auto 23.2 % (18.3-44.2); Mean Corpuscular HGB Conc 32.4 g/dl (32-36); Mean Corpuscular Hemoglobin 31.5 pg (26-34); Mean Corpuscular Volume 97.1 fl (80-100); Mean Platelet Volume 8.8 fl (7.4-10.4); Monocytes Absolute Auto 0.5 K/mm3 (0.1-0.6); Monocytes Percent Auto 9.4 % (2.6-8.5); Neutrophils Absolute Auto 3.8 K/mm3 (1.3-6.7); Neutrophils Percent Auto 65.9 % (45.5-73.1); Platelet Count Result 248 k/mm3 (150-375); Red Blood Count 3.84 M/mm3 (4.2-5.4); Red Cell Distribution Width 13.4 % (11.5-14.5); White Blood Count 5.8 K/mm3 (4.5-10.0)
--- NOTE | 2021-03-30 07:24 | ED.NAVMDI ---
HPI - Nausea/Vomiting/Diarrhea General Chief complaint: Nausea/Vomiting/Diarrhea Stated complaint: runny stools Time Seen by Provider: 03/30/21 07:11 Source: patient Mode of arrival: ambulatory Limitations: no limitations History of Present Illness HPI Narrative: Patient is an 80-year-old female complaining of diarrhea, loose, watery nonbloody started approximately 3 weeks ago. Patient was seen here 2 weeks ago for the same complaint and was prescribed Flagyl. Patient denies abdominal pain, nausea, vomiting, fever or chills. Related Data Home Medications Medication Instructions Recorded Confirmed acetaminophen [Tylenol] 650 mg PO PRN PRN 11/21/20 01/28/21 amlodipine 03/30/21 amlodipine 03/30/21 Allergies Allergy/AdvReac Type Severity Reaction Status Date / Time codeine Allergy Intermediate Rash Verified 03/30/21 06:27 Review of Systems Review of Systems: All systems reviewed & are unremarkable except as noted in HPI and below Constitutional: Constitutional: Denies body ache(s), Denies chills, Denies excessive sweating, Denies fatigue, Denies fever(s), Denies headache(s), Denies lethargy, Denies malaise, Denies weakness and Denies weight loss Eyes: Eyes: Denies blurry vision, Denies change in vision and Denies loss of vision ENT: Denies dizziness, Denies ear discharge, Denies headache(s), Denies lip swelling, Denies epistaxis, Denies nasal congestion, Denies neck pain, Denies throat swelling and Denies tongue swelling Cardiovascular: Cardiovascular: Denies chest pain, Denies chest pain at rest, Denies chest pain with activity, Denies diaphoresis, Denies rapid heart rate, Denies edema, Denies irregular heart rhythm, Denies lightheadedness, Denies palpitations, Denies dyspnea and Denies dyspnea on exertion Respiratory: Respiratory: Denies chest congestion, Denies cough, Denies hemoptysis, Denies dyspnea and Denies dyspnea on exertion Gastrointestinal: Gastrointestinal: Denies abdominal pain, Denies melena, Denies hematochezia, Denies nausea, Denies vomiting and Denies hematemesis Musculoskeletal: Musculoskeletal: Denies abnormal gait, Denies deformity, Denies joint swelling, Denies limited range of motion, Denies neck pain and Denies numbness Neurologic: Denies Abnormal speech present, Denies abnormal gait, Denies confusion, Denies dizziness, Denies headache(s), Denies focal weakness, Denies loss of vision, Denies numbness, Denies Other visual disturbances, Denies Sensory deficit (Neuro) and Denies weakness Psychiatric: Psychiatric: Denies confusion, Denies depression, Denies auditory hallucinations, Denies homicidal ideation and Denies suicidal ideation Endocrine: Endocrine: Denies cold intolerance, Denies excessive sweating, Denies fatigue, Denies heat intolerance and Denies palpitations Hematologic/Lymphatic: Hematologic/Lymphatic: Denies easy bleeding and Denies easy bruising Allergic/Immunologic: Allergic/Immunologic: Denies lip swelling, Denies throat swelling and Denies tongue swelling PMFSH Past Medical History Medical History Acute worsening of stage 3 chronic kidney disease Anemia Anxiety Basal cell carcinoma of face Breast cancer 1989 s/p lumpectomy to right, no chemo or radiation needed. Carotid stenosis Left 48% and right 55% 05/2018 Cholecystectomy planned 2013 CKD (chronic kidney disease) stage 3, GFR 30-59 ml/min Sees Dr. Willson COPD (chronic obstructive pulmonary disease) Deficient knowledge of combined anteroposterior colporrhaphy Depression Essential (primary) hypertension Former smoker GERD (gastroesophageal reflux disease) Hiatal hernia History of colon cancer Found after polyp removal, was removed with partial colectomy, no chemo or radiation needed Hyperlipidemia, unspecified Memory loss CECELIA (obstructive sleep apnea) Never completed sleep study Restless legs Shoulder arthritis Skin cancer of face Spinal stenosis Syncope
[2021-03-30 07:33] LABS: Alanine Aminotransferase 26 U/L (4-35); Albumin Level 4.5 g/dL (3.5-5.1); Alkaline Phosphatase 88 U/L (38-126); Anion Gap 10 mmol/L (8-16); Aspartate Amino Transferase 36 U/L (14-36); Bilirubin,Total 0.4 mg/dL (0.2-1.3); Blood Urea Nitrogen 31 mg/dL (7-17); Calcium 9.8 mg/dL (8.4-10.2); Carbon Dioxide 19 mmol/L (22-30); Chloride 108 mmol/L (98-107); Estimated CRCL calculation 20 ml/min; Estimated Glomerular Filt Rate 29; Glucose 136 mg/dL (65-110); Lipase 1022 U/L (23-300); Potassium 4.3 mmol/L (3.4-5.0); Sodium 137 mmol/L (137-145)
[2021-03-30] MEDS: LACTATED RINGERS 1,000 ML 999 ML IV CONT (07:35)
--- NOTE | 2021-03-30 07:36 | PC.NURSE ---
Attempted urinary catheterization , unsuccessful.
--- NOTE | 2021-03-30 08:51 | PC.NURSE ---
Pt given urine cup and updated on status.
[2021-03-30 09:24] VITALS: BP 148/57; PULSE 82; RESP 18; O2SAT 98
--- NOTE | 2021-03-30 10:13 | PC.NURSE ---
Urine specimen obtained via void.
[2021-03-30 10:42] VITALS: BP 113/78; PULSE 78; RESP 18; O2SAT 95
[2021-03-30 10:51] VITALS: PULSE 78; RESP 18
== END 2021-03-30 10:52 | disposition home or self-care (01) ==
PROVIDERS: Emergency Provider Emergency Medicine; PCP Internal Medicine
DX: R19.7 Diarrhea, unspecified (principal); E11.22 Type 2 diabetes mellitus with diabetic chronic kidney disease; I12.9 Hypertensive chronic kidney disease with stage 1 through stage 4 chronic kidney disease, or unspecified chronic kidney disease; N18.30 Chronic kidney disease, stage 3 unspecified; I65.23 Occlusion and stenosis of bilateral carotid arteries; E78.5 Hyperlipidemia, unspecified; J44.9 Chronic obstructive pulmonary disease, unspecified; G47.33 Obstructive sleep apnea (adult) (pediatric); K21.9 Gastro-esophageal reflux disease without esophagitis; E55.9 Vitamin D deficiency, unspecified; M19.019 Primary osteoarthritis, unspecified shoulder; G25.81 Restless legs syndrome; F41.9 Anxiety disorder, unspecified; Z85.038 Personal history of other malignant neoplasm of large intestine; Z85.3 Personal history of malignant neoplasm of breast; Z85.828 Personal history of other malignant neoplasm of skin; Z87.440 Personal history of urinary (tract) infections; Z86.2 Personal history of diseases of the blood and blood-forming organs and certain disorders involving the immune mechanism
CPT/HCPCS: 36415; 80053; 83690; 85025; 87324; 96360; 99283; J7120

== ENCOUNTER 2021-04-08 12:49 | Inpatient (IN) | payer MEDICARE, SELFPAY ==
[2021-04-08] VITALS (43 sets, daily range): BP systolic 129–172; BP diastolic 50–88; PULSE 57–91; RESP 15–29; TEMP 36.3–36.6; O2SAT 95–100; BMI 19.9
--- NOTE | ~2021-04-08 | CT_ITS ---
EXAMINATION: CT abdomen pelvis wo con EXAM DATE: 04/08/2021 14:32 INDICATION: diarrhea, abdominal pain. TECHNIQUE: Spiral CT of the abdomen and pelvis was performed without contrast. Axial, coronal and s agittal images of the abdomen and pelvis were reviewed. The dose-length product (DLP) for this exami nation was 188.24 mGy-cm. The exposure was tailored according to patient size (auto mA exposure cont rol), and iterative reconstruction (ASIR) was used as additional dose reduction technique. Comparison is made to prior examination from 03/12/2021. FINDINGS: The liver, spleen, adrenal glands and pancreas are unremarkable. There are cholecystectomy clips. Moderate bilateral renal atrophy. Left renal cortical scarring. No hydronephrosis. The uter us is not identified and has likely been surgically resected. The bladder is unremarkable. There is no retroperitoneal or pelvic lymphadenopathy. There is moderate scattered arteriosclerotic disease . Cecal resection. Transverse colonic fluid. Mild sigmoid diverticulosis, possibly with mild acute unco mplicated diverticulitis. There is small sliding gastroesophageal hiatal hernia. No free intraperi toneal gas. The heart is normal in size. There are no pericardial or pleural effusions. The lung bases are unremarkable. There are no osteoblastic or osteolytic lesions identified. There is mild david mbar levoscoliosis. IMPRESSION: 1. Possible mild uncomplicated sigmoid diverticulitis. 2. Moderate renal atrophy. 3. Small hiatal hernia. 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
--- NOTE | ~2021-04-08 | US_ITS ---
EXAMINATION: US abdomen limited EXAM DATE: 04/09/2021 14:53 INDICATION: Transaminitis. TECHNIQUE: Multiple grayscale and Doppler images of the abdomen right upper quadrant were obtained (mirna y a technologist who performed the scan) and subsequently reviewed. Comparison is made to prior exami nation from 03/02/2019. FINDINGS: The pancreatic head and body are normal in appearance. The pancreatic tail is not visualized. The l iver has normal echogenicity and contour. There are no focal liver lesions identified. There is no evidence of intrahepatic biliary duct dilation. Portal venous flow was seen in the hepatopedal, nor mal direction and has normal Doppler waveform. No right-sided hydronephrosis. Common bile duct measures 3 mm, which is normal. The gallbladder fossa is unremarkable. IMPRESSION: 1. Unremarkable abdominal ultrasound exam. 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
[2021-04-08 13:21] LABS: Basophils Percent Auto 0.6 % (0.2-1.2); Eosinophils Percent Auto 0.6 % (0-4.4); Hematocrit 36.2 % (37.0-47.0); Hemoglobin 11.8 g/dL (12.0-15.0); Immature Granulocyte Absolute 0.02 K/mm3 (0.00-0.031); Immature Granulocyte Percent A 0.4 % (0-0.5); Lymphocytes Percent Auto 27.5 % (18.3-44.2); Mean Corpuscular HGB Conc 32.6 g/dl (32-36); Mean Corpuscular Hemoglobin 31.9 pg (26-34); Mean Corpuscular Volume 97.8 fl (80-100); Mean Platelet Volume 8.8 fl (7.4-10.4); Monocytes Absolute Auto 0.5 K/mm3 (0.1-0.6); Monocytes Percent Auto 9.6 % (2.6-8.5); Neutrophils Absolute Auto 3.1 K/mm3 (1.3-6.7); Neutrophils Percent Auto 61.3 % (45.5-73.1); Platelet Count Result 247 k/mm3 (150-375); Red Cell Distribution Width 13.9 % (11.5-14.5); White Blood Count 5.1 K/mm3 (4.5-10.0)
[2021-04-08 13:31] LABS: Alanine Aminotransferase 190 U/L (4-35); Albumin Level 4.4 g/dL (3.5-5.1); Alkaline Phosphatase 200 U/L (38-126); Anion Gap 9 mmol/L (8-16); Aspartate Amino Transferase 101 U/L (14-36); Bilirubin,Total 0.4 mg/dL (0.2-1.3); Blood Urea Nitrogen 29 mg/dL (7-17); Calcium 9.3 mg/dL (8.4-10.2); Carbon Dioxide 19 mmol/L (22-30); Chloride 109 mmol/L (98-107); Estimated CRCL calculation 22 ml/min; Estimated Glomerular Filt Rate 31; Glucose 118 mg/dL (65-110); Lipase 393 U/L (23-300); Potassium 4.9 mmol/L (3.4-5.0); Sodium 137 mmol/L (137-145)
[2021-04-08 13:37] LABS: Add Urine Microscopic? YES; Appearance Urine Cloudy (Clear); Bacteria Urine 2+ /hpf; Bilirubin Urine Negative (Negative); Blood Urine 1+ (Negative); Color Urine Yellow (Yellow); Glucose Urine UA Negative (Negative); Ketones Urine Negative (Negative); Leukocyte Esterase Ur 3+ LEU/UL (Negative); Mucus Urine Few /lpf; Nitrate Urine Positive (Negative); Protein Urine 2+ mg/dL (Negative); RBC Urine 21-50 /hpf (0-2); Specific Grav Ur 1.018 (1.001-1.035); Squamous Epithelial Cell Urine Few /hpf (Few); Urobilinogen Urine Negative mg/dL (<2.0); WBC Clumps Urine Present /HPF; WBC Urine >75 /hpf
--- NOTE | 2021-04-08 14:11 | PC.NURSE ---
crackers and juice were given at 1411 per doctors orders
--- NOTE | 2021-04-08 14:13 | ED.GENADULT ---
HPI - General Adult General Chief complaint: Nausea/Vomiting/Diarrhea Stated complaint: diarrhea Time Seen by Provider: 04/08/21 13:25 History of Present Illness HPI narrative: 80-year-old female presenting to the emergency department for evaluation of diarrhea for approximately 6 weeks with worsening dehydration and fatigue. Patient has had 4 visits to the emergency department related to this diarrhea. Patient has been on 2 rounds of Flagyl without any improvement. Patient has been taking Imodium that does seem to slow the bowels but does not significantly help with the diarrhea. Patient has called to schedule follow-up with GI but does not have an appointment with GI until the end of April. Patient has had approximately 12 pounds of weight loss. Patient does have a previous history colon resection approximately 3 years ago due to a profile during a biopsy during colonoscopy. Patient had pancreatitis in February Related Data Home Medications Medication Instructions Recorded Confirmed acetaminophen [Tylenol] 650 mg PO PRN PRN 11/21/20 01/28/21 amlodipine 03/30/21 amlodipine 03/30/21 Allergies Allergy/AdvReac Type Severity Reaction Status Date / Time codeine Allergy Intermediate Rash Verified 04/08/21 13:05 Review of Systems Review of Systems: CONSTITUTIONAL: Worsening generalized weakness. EYES: Denies visual changes, redness, or discharge. ENT: Denies rhinorrhea, congestion, sore throat, or otalgia. CARDIOVASCULAR: Denies chest pain, palpitations, or edema. RESPIRATORY: Denies cough or dyspnea. GASTROINTESTINAL: Diarrhea GENITOURINARY: Denies dysuria or hematuria. SKIN: Denies rash or itching. MUSCULOSKELETAL: Denies back pain, joint pain, or myalgia. NEUROLOGIC: Denies headache, numbness, or weakness. [facility] Past Medical History Medical History Acute worsening of stage 3 chronic kidney disease Anemia Anxiety Basal cell carcinoma of face Breast cancer 1989 s/p lumpectomy to right, no chemo or radiation needed. Carotid stenosis Left 48% and right 55% 05/2018 Cholecystectomy planned 2013 CKD (chronic kidney disease) stage 3, GFR 30-59 ml/min Sees Dr. Willson COPD (chronic obstructive pulmonary disease) Deficient knowledge of combined anteroposterior colporrhaphy Depression Essential (primary) hypertension Former smoker GERD (gastroesophageal reflux disease) Hiatal hernia History of colon cancer Found after polyp removal, was removed with partial colectomy, no chemo or radiation needed Hyperlipidemia, unspecified Memory loss CECELIA (obstructive sleep apnea) Never completed sleep study Restless legs Shoulder arthritis Skin cancer of face Spinal stenosis Syncope 06/12/2018 Type 2 diabetes mellitus Diet controlled UTI (urinary tract infection) Vertigo Vitamin D deficiency Surgical History Surgical History H/O cataract removal with insertion of prosthetic lens H/O lumpectomy H/O: hysterectomy 1982 History of colonoscopy 2016 resulting in cauterization of a polyp and caused perforation requiring surgery and partial colon resection. History of partial surgical removal of colon Partial colectomy 2016 after polyp was removed and caused perforation of colon History of stress incontinence procedure using tension free vaginal tape Family History Family History Mother Cerebrovascular accident Hypertension Family history of transient ischemic attacks Sibling Family history of coronary artery disease Father Family history of transient ischemic attacks Patient's father is , Onset Age: 59 Family history of chronic obstructive pulmonary disease Colon cancer Other Family history of diabetes mellitus in first degree relative Social History Social History Social
[2021-04-08] MEDS: metroNIDAZOLE 500 MG/ISO 100ML 500 MG/100 ML BAG 100 MG IVPB (15:11)
--- NOTE | 2021-04-08 16:30 | PM.IMHP ---
H&P: HPI History of Present Illness Date/Time: 04/08/21 16:30 Chief Complaint: Diarrhea. Narrative: This is a pleasant 80-year-old female with history of colon cancer, hypertension, hyperlipidemia, diet-controlled diabetes, GERD, and several other comorbidities who presented to the emergency department earlier today from home for evaluation of diarrhea. Per patient report she has had 2 to 4 episodes of loose stools each day for the past 6 weeks. The diarrhea tends to occur approximately 3 hours after ingestion of food. She has been taking Imodium however that has not been of much benefit. It is to the point where she is avoiding eating as she does not want to have diarrhea though she has been drinking Gatorade and Pedialyte. It is also noted that she has been seen in this emergency department several times in the last month for similar symptoms and most recently she was started on Flagyl on 03/29/2021 however she continues to have loose stools with increasing weakness that she came back in today for evaluation. CT of the abdomen pelvis showed possible mild uncomplicated sigmoid diverticulitis and she is being admitted in this setting. She has not noticed mucus in the stool but did notice a small amount of blood earlier today. Urinalysis today is concerning for UTI and with further questioning she mentions only mild dysuria but nothing significant. She has not had a fever and denies chills and sweats. She denies recent travel and sick contacts. No history of C diff. Patient estimates she has lost 12 lb in last 6 weeks due to diarrhea. Review of Systems Review of Systems: Twelve systems were reviewed. No recent cold or flu symptoms. No fever, chills, or sweats. No syncope or near syncope. She has felt weak and somewhat lightheaded on standing but nothing significant. No chest pain or shortness of breath. Except as documented, all other systems were reviewed and are negative. [facility] Past Medical History Medical History (Updated 04/08/21 @ 23:13 by Bianca Cruz PA-C) Anemia Anxiety Basal cell carcinoma of face Breast cancer 1989 s/p lumpectomy to right, no chemo or radiation needed. Carotid stenosis Left 48% and right 55% 05/2018 Chronic kidney disease, stage 3 Chronic obstructive pulmonary disease Depression Essential (primary) hypertension Former smoker GERD (gastroesophageal reflux disease) Hiatal hernia History of colon cancer Found after polyp removal, was removed with partial colectomy, no chemo or radiation needed Hyperlipidemia, unspecified Memory loss CECELIA (obstructive sleep apnea) Never completed sleep study Restless legs Shoulder arthritis Spinal stenosis Syncope 06/12/2018 Type 2 diabetes mellitus Diet controlled Vitamin D deficiency Surgical History Surgical History (Updated 04/08/21 @ 23:10 by Bianca Cruz PA-C) History of cataract extraction with lens replacement History of cholecystectomy History of colonoscopy 2016 resulting in cauterization of a polyp and caused perforation requiring surgery and partial colon resection. History of hysterectomy History of lumpectomy of right breast History of partial surgical removal of colon Partial colectomy 2016 after polyp was removed and caused perforation of colon History of stress incontinence procedure using tension free vaginal tape Family History Family History Mother Cerebrovascular accident Hypertension Family history of transient ischemic attacks Sibling Family history of coronary artery disease Father Family history of transient ischemic attacks Patient's father is , Onset Age: 59 Family history of chronic obstructive pulmonary disease Colon cancer Other Family history of diabetes mellitus in first degree relative Social History Social History (Updated 04/08/21 @ 23:10 by Bianca Cruz PA-C) Social History: The patient [facility] She is
--- NOTE | 2021-04-08 21:45 | ADMGEN ---
This patient, Nannette Nix, was admitted to Medical Room 261-01. Patient/family oriented to hospital policies and general routines including ID bracelet, bed and alarms, visiting hours, pain management, procedures, bathroom and other care routines, personal items, smoking policy, room service/diet, and visiting hours. Information on how to activate the Rapid Response Team has been discussed. Patient/Family are encouraged to report perceived risks to care and to ask questions if they do not understand what they are told or what they should do.
[2021-04-09 05:31] LABS: Hematocrit 34.4 % (37.0-47.0); Hemoglobin 11.1 g/dL (12.0-15.0); Mean Corpuscular HGB Conc 32.3 g/dl (32-36); Mean Corpuscular Hemoglobin 31.8 pg (26-34); Mean Corpuscular Volume 98.6 fl (80-100); Platelet Count Result 237 k/mm3 (150-375); Red Blood Count 3.49 M/mm3 (4.2-5.4); Red Cell Distribution Width 13.8 % (11.5-14.5); White Blood Count 5.6 K/mm3 (4.5-10.0)
[2021-04-09 05:41] LABS: Alanine Aminotransferase 147 U/L (4-35); Albumin Level 3.8 g/dL (3.5-5.1); Alkaline Phosphatase 177 U/L (38-126); Anion Gap 9 mmol/L (8-16); Aspartate Amino Transferase 73 U/L (14-36); Bilirubin,Total 0.4 mg/dL (0.2-1.3); Blood Urea Nitrogen 30 mg/dL (7-17); Calcium 9.2 mg/dL (8.4-10.2); Carbon Dioxide 22 mmol/L (22-30); Chloride 107 mmol/L (98-107); Estimated CRCL calculation 20 ml/min; Estimated Glomerular Filt Rate 29; Glucose 111 mg/dL (65-110); Magnesium 2.1 mg/dL (1.6-2.3); Potassium 4.6 mmol/L (3.4-5.0); Sodium 138 mmol/L (137-145)
[2021-04-09 06:00] VITALS: BP 131/72; PULSE 78; RESP 21; TEMP 36.2; O2SAT 100
[2021-04-09 06:32] LABS: Hepatitis B Surface Antigen Negative (Negative)
[2021-04-09 06:38] LABS: HAV RESULT Negative (Negative); Hepatitis B Core IgM Result Negative (Negative)
[2021-04-09 06:50] LABS: Hepatitis C Virus Antibody Negative (Negative)
[2021-04-09 08:23] LABS: Toxigenic C. Diff POSITIVE (NEGATIVE)
[2021-04-09] MEDS: ENOXAPARIN 30 MG/0.3 ML SYRINGE SUB-Q (09:40)
[2021-04-09] MEDS: FIDAXOMICIN 200 MG TABLET PO ×2 (09:42→21:12)
--- NOTE | 2021-04-09 10:03 | PM.IMPN ---
Progress Note: A&P Assessment and Plan (1) Diverticulitis of sigmoid colon: Code(s): K57.32 - Diverticulitis of large intestine without perforation or abscess without bleeding Status: Acute Assessment and Plan: CT of the abdomen and pelvis shows possible mild uncomplicated sigmoid diverticulitis Continue Zosyn GI consulted, recommendations appreciated Will need colonoscopy outpatient (2) Diarrhea: Qualifiers: Diarrhea type: unspecified type Qualified Code(s): R19.7 - Diarrhea, unspecified Code(s): R19.7 - Diarrhea, unspecified Status: Acute Assessment and Plan: An ongoing issue for the patient Cdiff positive Fidaxomicin initiated Follow stool studies Dr. Glover following, recommendations appreciated Clears, ADAT (3) Urinary tract infection: Code(s): N39.0 - Urinary tract infection, site not specified Status: Acute Assessment and Plan: She is currently on Zosyn for the above Follow Urine culture (4) Chronic kidney disease, stage 3: Qualifiers: Chronic kidney disease stage 3 subtype: stage 3b (GFR 30-44) Qualified Code(s): N18.32 - Chronic kidney disease, stage 3b Code(s): N18.30 - Chronic kidney disease, stage 3 unspecified Status: Acute Assessment and Plan: BUN and creatinine are near baseline Continue IVF Monitor (5) Chronic anemia: Code(s): D64.9 - Anemia, unspecified Status: Acute Assessment and Plan: Hemoglobin and hematocrit are stable on review of previous labs Transfuse if <7 Monitor (6) Transaminitis: Code(s): R74.01 - Elevation of levels of liver transaminase levels Status: Acute Assessment and Plan: She has had intermittent elevation in her LFTs over the years Abdominal exam is relatively benign Hepatitis panel negative RUQ pending Monitor Subjective Date/time seen: 04/09/21 10:03 Interval history: Pt seen and evaluated; labs, vs, diagnostic results, consult notes reviewed; pt dose endorse abdominal pain and diarrhea Review of Systems Review of Systems: All systems reviewed & are unremarkable except as noted in HPI and below Exam Narrative: General: NAD. HEENT: EOMI. Sclerae anicteric. Neck: Supple. No JVD. Respiratory: Lungs are clear to auscultation bilaterally. Cardiovascular: Regular rate and rhythm with S1-S2. Gastrointestinal: Abdomen is soft, nontender, and nondistended with positive bowel sounds. No guarding or rebound tenderness. Skin: Warm and dry. No rash or lesions on limited exam. Extremities: No cyanosis, clubbing, or edema. Radial and pedal pulses intact. Neurological: AOX3. No gross focal deficits. Psychiatric: Cooperative. Objective Data Vital Signs Vital Signs: Vital Signs - 24 hr 04/08/21 12:54 04/08/21 12:55 04/08/21 12:56 Temperature 36.6 C Pulse Rate 90 91 74 Respiratory Rate 24 H 19 18 Blood Pressure 172/85 H 172/85 H Pulse Oximetry 100 100 100 04/08/21 13:00 04/08/21 13:01 04/08/21 13:15 Temperature Pulse Rate 67 75 67 Respiratory Rate 17 20 16 Blood Pressure 129/74 Pulse Oximetry 100 100 04/08/21 13:30 04/08/21 13:31 04/08/21 13:45 Temperature Pulse Rate 62 63 64 Respiratory Rate 18 22 H 21 H Blood Pressure 148/62 H Pulse Oximetry 100 100 100 04/08/21 13:46 04/08/21 14:00 04/08/21 14:15 Temperature Pulse Rate 64 79 73 Respiratory Rate 18 15 23 H Blood Pressure 146/56 H Pulse Oximetry 100 100 97 04/08/21 14:17 04/08/21 14:18 04/08/21 14:38 Temperature Pulse Rate 76 78 65 Respiratory Rate 20 18 17 Blood Pressure 134/72 Pulse Oximetry 100 100 100 04/08/21 14:45 04/08/21 15:00 04/08/21 15:15 Temperature Pulse Rate 69 72 69 Respiratory Rate 19 18 21 H Blood Pressure Pulse Oximetry 100 100 100 04/08/21 15:30 04/08/21 15:45 04/08/21 16:00 Temperature Pulse Rate 65 73 70 Respiratory Rate 20 20 22 H Blood Pressure
--- NOTE | 2021-04-09 12:54 | WPDGICN ---
Assessment and Plan Assessment and plan (1) Diverticulitis of sigmoid colon: Code(s): K57.32 - Diverticulitis of large intestine without perforation or abscess without bleeding Status: Acute Assessment and Plan: Patient appears to have acute diverticulitis of the colon. Potentially this contributes to alteration in her bowel habits. Agree with broad-spectrum antibiotic coverage. Advance diet as tolerated. She should go home with a 1 week course of antibiotics if symptoms improve. Elective colonoscopy can be arranged as an outpatient and probably should be performed given her significant complaints of ongoing diarrhea. (2) Diarrhea: Qualifiers: Diarrhea type: unspecified type Qualified Code(s): R19.7 - Diarrhea, unspecified Code(s): R19.7 - Diarrhea, unspecified Status: Acute Assessment and Plan: Patient has complaints of diarrhea. It is hard to get the specifics as she has a very poor history. Likely this is related to urinary tract infection and the diverticulitis. Stool cultures will be obtained. Broad-spectrum antibiotics may help any infectious etiology for diarrhea. If this persists colonoscopy can be performed electively as outpatient. (3) Urinary tract infection: Code(s): N39.0 - Urinary tract infection, site not specified Status: Acute Assessment and Plan: UTI a identified on admission urinalysis period broad-spectrum antibiotics now (4) Elevated LFTs: Code(s): R79.89 - Other specified abnormal findings of blood chemistry Status: Acute Assessment and Plan: Patient has elevated transaminases. Etiology for this is unclear may be related to brief hypotension. She has had fluctuation in her LFTs intermittently over the years. No specific findings have been identified. I understand hepatitis serology and ultrasound have been ordered will be reviewed when available. Continue monitor LFTs follow conservatively at this point. GI Consult Note Consult date/time: 04/09/21 12:54 HPI: Nannette Nix is a 80 year old female I am asked to see because of recurrent diarrhea. Patient gives a very poor history. Her past history is significant for colon cancer, hypertension, diabetes and acid reflux. Patient apparently has been to the ER on several occasions. Patient gives a history of diarrhea over the last month. Apparently has intermittent loose stools. She denies any obvious bleeding. She states diarrhea occurs several hours after eating typically. Upon presenting to the emergency room. CT scan suggest acute diverticulitis. Urinalysis is consistent with a urinary tract infection. patient's last colonoscopy March of 2019 was essentially unremarkable. Review of Systems Review of Systems: All systems reviewed & are unremarkable except as noted in HPI and below PMFSH Past Medical History Medical History (Updated 04/08/21 @ 23:13 by Bianca Cruz PA-C) Anemia Anxiety Basal cell carcinoma of face Breast cancer 1989 s/p lumpectomy to right, no chemo or radiation needed. Carotid stenosis Left 48% and right 55% 05/2018 Chronic kidney disease, stage 3 Chronic obstructive pulmonary disease Depression Essential (primary) hypertension Former smoker GERD (gastroesophageal reflux disease) Hiatal hernia History of colon cancer Found after polyp removal, was removed with partial colectomy, no chemo or radiation needed Hyperlipidemia, unspecified Memory loss CECELIA (obstructive sleep apnea) Never completed sleep study Restless legs Shoulder arthritis Spinal stenosis Syncope 06/12/2018 Type 2 diabetes mellitus Diet controlled Vitamin D deficiency Surgical History Surgical History (Updated 04/08/21 @ 23:10 by Bianca Cruz PA-C) History of cataract extraction with lens replacement History of cholecystectomy History of colonoscopy 2016 resulting in cauterization of a polyp and caused perforation requiring power
[2021-04-09 14:00] VITALS: BP 134/60; PULSE 67; RESP 18; TEMP 36.6; O2SAT 100
[2021-04-09 17:21] LABS: Hematocrit 36.7 % (37.0-47.0); Hemoglobin 12.2 g/dL (12.0-15.0); Mean Corpuscular HGB Conc 33.2 g/dl (32-36); Mean Corpuscular Hemoglobin 32.3 pg (26-34); Mean Corpuscular Volume 97.1 fl (80-100); Mean Platelet Volume 9.2 fl (7.4-10.4); Platelet Count Result 244 k/mm3 (150-375); Red Blood Count 3.78 M/mm3 (4.2-5.4); Red Cell Distribution Width 13.8 % (11.5-14.5); White Blood Count 4.9 K/mm3 (4.5-10.0)
[2021-04-09 21:09] VITALS: BP 143/57; PULSE 63; RESP 14; TEMP 36.4; O2SAT 100
[2021-04-09 21:10] VITALS: BP 111/62; BP 143/57
[2021-04-09 21:12] VITALS: BP 127/56
[2021-04-10] VITALS (8 sets, daily range): BP systolic 100–148; BP diastolic 55–89; PULSE 61–91; RESP 16; TEMP 36.4–36.8; O2SAT 96–100
[2021-04-10] MEDS: FIDAXOMICIN 200 MG TABLET PO ×2 (08:00→22:06)
[2021-04-10] MEDS: ENOXAPARIN 30 MG/0.3 ML SYRINGE SUB-Q (08:00)
[2021-04-10 11:30] LABS: Hematocrit 34.2 % (37.0-47.0); Hemoglobin 11.1 g/dL (12.0-15.0); Mean Corpuscular HGB Conc 32.5 g/dl (32-36); Mean Corpuscular Hemoglobin 31.7 pg (26-34); Mean Corpuscular Volume 97.7 fl (80-100); Mean Platelet Volume 8.9 fl (7.4-10.4); Platelet Count Result 250 k/mm3 (150-375); Red Cell Distribution Width 14.1 % (11.5-14.5); White Blood Count 5.3 K/mm3 (4.5-10.0)
[2021-04-10 11:40] LABS: Anion Gap 8 mmol/L (8-16); Blood Urea Nitrogen 27 mg/dL (7-17); Calcium 9.4 mg/dL (8.4-10.2); Carbon Dioxide 21 mmol/L (22-30); Chloride 111 mmol/L (98-107); Estimated CRCL calculation 20 ml/min; Estimated Glomerular Filt Rate 27; Glucose 110 mg/dL (65-110); Potassium 5.5 mmol/L (3.4-5.0); Sodium 140 mmol/L (137-145)
--- NOTE | 2021-04-10 13:43 | PM.IMPN ---
Progress Note: A&P Assessment and Plan (1) Diverticulitis of sigmoid colon: Code(s): K57.32 - Diverticulitis of large intestine without perforation or abscess without bleeding Status: Acute Assessment and Plan: CT of the abdomen and pelvis shows possible mild uncomplicated sigmoid diverticulitis Continue Zosyn GI consulted, recommendations appreciated Will need colonoscopy outpatient (2) Diarrhea: Qualifiers: Diarrhea type: unspecified type Qualified Code(s): R19.7 - Diarrhea, unspecified Code(s): R19.7 - Diarrhea, unspecified Status: Acute Assessment and Plan: An ongoing issue for the patient Cdiff positive Fidaxomicin initiated Follow stool studies Dr. Glover following, recommendations appreciated Clears, ADAT (3) Urinary tract infection: Code(s): N39.0 - Urinary tract infection, site not specified Status: Acute Assessment and Plan: She is currently on Zosyn for the above Urine culture-->Escherichia Coli Sensitive to Zosyn, continue (4) Chronic kidney disease, stage 3: Qualifiers: Chronic kidney disease stage 3 subtype: stage 3b (GFR 30-44) Qualified Code(s): N18.32 - Chronic kidney disease, stage 3b Code(s): N18.30 - Chronic kidney disease, stage 3 unspecified Status: Acute Assessment and Plan: BUN and creatinine are near baseline Continue IVF Monitor (5) Chronic anemia: Code(s): D64.9 - Anemia, unspecified Status: Acute Assessment and Plan: Hemoglobin and hematocrit are stable on review of previous labs Transfuse if <7 Monitor (6) Transaminitis: Code(s): R74.01 - Elevation of levels of liver transaminase levels Status: Acute Assessment and Plan: She has had intermittent elevation in her LFTs over the years Abdominal exam is relatively benign Hepatitis panel negative RUQ unremarkable Monitor (7) Altered mental status: Code(s): R41.82 - Altered mental status, unspecified Status: Acute Assessment and Plan: Could be to underlining infection If symptoms persist, may benefit from outpatient evaluation for dementia Time Spent With Patient Time: Code status: FULL DVT Ppx: Lovenox Disposition: Pt will d/c home with [facility] Subjective Date/time seen: 04/10/21 13:43 Interval history: 04/09/2021: Pt seen and evaluated; labs, vs, diagnostic results, consult notes reviewed; pt dose endorse abdominal pain and diarrhea 04/10/2021: Nursing staff reported that pt was more confused yesterday afternoon; this a.m. pt is cooperative; she reports 1 episode of diarrhea; she forgot she had breakfast this morning Review of Systems Review of Systems: All systems reviewed & are unremarkable except as noted in HPI and below Exam Narrative: General: NAD. HEENT: EOMI. Sclerae anicteric. Neck: Supple. No JVD. Respiratory: Lungs are clear to auscultation bilaterally. Cardiovascular: Regular rate and rhythm with S1-S2. Gastrointestinal: Abdomen is soft, nontender, and nondistended with positive bowel sounds. No guarding or rebound tenderness. Skin: Warm and dry. No rash or lesions on limited exam. Extremities: No cyanosis, clubbing, or edema. Radial and pedal pulses intact. Neurological: AOX3. No gross focal deficits. Psychiatric: Cooperative. Objective Data Vital Signs Vital Signs: Vital Signs - 24 hr 04/09/21 14:00 04/09/21 21:09 04/09/21 21:10 Temperature 36.6 C 36.4 C Pulse Rate 67 63 Respiratory Rate 18 14 Blood Pressure 134/60 143/57 H 111/62 Pulse Oximetry 100 100 04/09/21 21:12 04/10/21 06:00 04/10/21 10:42 Temperature 36.8 C Pulse Rate 86 Respiratory Rate 16 Blood Pressure 127/56 L 122/55 L Pulse Oximetry 100 96 Intake/Output Intake/Output: Intake & Output 04/07/21 04/08/21 04/09/21 04/10/21 23:59 23:59 23:59 23:59 Intake Total 200 400 860 Output Total 552 Balance 200 -152 860 Meds/R
[2021-04-11] VITALS (7 sets, daily range): BP systolic 113–158; BP diastolic 55–76; PULSE 58–103; RESP 16–18; TEMP 36.4–36.6; O2SAT 98–100
[2021-04-11 06:26] LABS: Anion Gap 10 mmol/L (8-16); Blood Urea Nitrogen 25 mg/dL (7-17); Calcium 9.1 mg/dL (8.4-10.2); Carbon Dioxide 19 mmol/L (22-30); Chloride 108 mmol/L (98-107); Estimated CRCL calculation 20 ml/min; Estimated Glomerular Filt Rate 27; Glucose 90 mg/dL (65-110); Potassium 4.2 mmol/L (3.4-5.0); Sodium 137 mmol/L (137-145)
[2021-04-11] MEDS: FIDAXOMICIN 200 MG TABLET PO ×2 (09:56→20:25)
[2021-04-11] MEDS: ENOXAPARIN 30 MG/0.3 ML SYRINGE SUB-Q (09:56)
--- NOTE | 2021-04-11 11:05 | PM.IMPN ---
Progress Note: A&P Assessment and Plan (1) Diverticulitis of sigmoid colon: Code(s): K57.32 - Diverticulitis of large intestine without perforation or abscess without bleeding Status: Acute Assessment and Plan: CT of the abdomen and pelvis shows possible mild uncomplicated sigmoid diverticulitis Continue Zosyn GI consulted, recommendations appreciated Will need colonoscopy outpatient green slimy incontinent stool in her bed. denies any abdominal pain and denies any nausea vomiting. Started Florastor BID. Continue patient on Dificid for her active C diff infection. (2) Diarrhea: Qualifiers: Diarrhea type: unspecified type Qualified Code(s): R19.7 - Diarrhea, unspecified Code(s): R19.7 - Diarrhea, unspecified Status: Acute Assessment and Plan: An ongoing issue for the patient Cdiff positive Fidaxomicin initiated Pending stool studies Dr. Glover following, recommendations appreciated Diet advanced. Florastor ordered BID Intake and output documented, awaiting for frequency of stools to lessen/improve before sending patient home as she could get severely dehydrated if Diarrhea not improved. She had 6 bowel movements on the , and yesterday's number of bowel movements was not accurately recorded. I have instructed nursing staff and the tacks to be sure to document all bowel movements today. According to her intake yesterday and previous day, she still is not taking in more than 900 mL orally. Will continue to encourage oral hydration. And monitor her electrolytes due to her persistent diarrhea. (3) Urinary tract infection: Code(s): N39.0 - Urinary tract infection, site not specified Status: Acute Assessment and Plan: She is currently on Zosyn for UTI Urine culture-->Escherichia Coli Sensitive to Zosyn, continue - was started on 04/09/2021, now on day 3 (4) Chronic kidney disease, stage 3: Qualifiers: Chronic kidney disease stage 3 subtype: stage 3b (GFR 30-44) Qualified Code(s): N18.32 - Chronic kidney disease, stage 3b Code(s): N18.30 - Chronic kidney disease, stage 3 unspecified Status: Acute Assessment and Plan: BUN and creatinine are near baseline stopped IVFs. strict intake/output encouraged oral hydration Creatinine 1.8 today (best creatinine over the last year upon lab review was 1.5) monitor her electrolytes due to her persistent diarrhea. Baseline creatinine seems to be 1.2-1.5 upon review of medical records. creatinine today was 1.8 with a potassium of 4.2. Will check her Mag and phos levels, Due to her poor dietary intake as well as her persistent diarrhea. (5) Chronic anemia: Code(s): D64.9 - Anemia, unspecified Status: Acute Assessment and Plan: Hemoglobin and hematocrit are stable on review of previous labs Transfuse if <7 H/H = yesterday checking iron panel in morning stable (6) Transaminitis: Code(s): R74.01 - Elevation of levels of liver transaminase levels Status: Acute Assessment and Plan: She has had intermittent elevation in her LFTs over the years Abdominal exam is relatively benign Hepatitis panel negative RUQ unremarkable Abd. US clear may be related to chronic dehydration? (7) Altered mental status: Code(s): R41.82 - Altered mental status, unspecified Status: Acute Assessment and Plan: Could be chronic or acute to underlining infection compounded with short term memory loss/dementia. If symptoms persist, may benefit from outpatient evaluation for dementia by PCP. Pleasant, follows commands, no acute concerns. reconciled her home medications, held her 2 blood pressure medications, amlodipine and losartan remain on hold. (8) C. difficile colitis: Code(s): A04.72 - Enterocolitis due to Clostridium difficile, not specified as recurrent Status: Acute Assessment and Plan: Eugenio Morales
[2021-04-11 11:58] LABS: Magnesium 2.1 mg/dL (1.6-2.3); Phosphorus 4.4 mg/dL (2.5-4.5)
[2021-04-11] MEDS: FLUoxetine HCL 20 MG CAPSULE PO (12:18)
[2021-04-11] MEDS: SACCHAROMYCES BOULARDII 250 MG CAPSULE PO (18:02)
[2021-04-12] VITALS (8 sets, daily range): BP systolic 111–169; BP diastolic 43–62; PULSE 56–76; RESP 14–18; TEMP 36.8–37; O2SAT 97–100
[2021-04-12 05:13] LABS: Basophils Percent Auto 0.8 % (0.2-1.2); Eosinophils Absolute Auto 0.1 K/mm3 (0-0.3); Eosinophils Percent Auto 1.3 % (0-4.4); Hematocrit 32.8 % (37.0-47.0); Hemoglobin 10.8 g/dL (12.0-15.0); Immature Granulocyte Absolute 0.02 K/mm3 (0.00-0.031); Immature Granulocyte Percent A 0.5 % (0-0.5); Lymphocytes Absolute Auto 1.17 K/mm3 (0.9-3.2); Lymphocytes Percent Auto 29.3 % (18.3-44.2); Mean Corpuscular HGB Conc 32.9 g/dl (32-36); Mean Corpuscular Hemoglobin 31.2 pg (26-34); Mean Corpuscular Volume 94.8 fl (80-100); Monocytes Absolute Auto 0.5 K/mm3 (0.1-0.6); Monocytes Percent Auto 11.5 % (2.6-8.5); Neutrophils Absolute Auto 2.3 K/mm3 (1.3-6.7); Neutrophils Percent Auto 56.6 % (45.5-73.1); Platelet Count Result 248 k/mm3 (150-375); Red Blood Count 3.46 M/mm3 (4.2-5.4); Red Cell Distribution Width 13.4 % (11.5-14.5)
[2021-04-12 05:29] LABS: Alanine Aminotransferase 81 U/L (4-35); Albumin Level 3.8 g/dL (3.5-5.1); Alkaline Phosphatase 123 U/L (38-126); Anion Gap 10 mmol/L (8-16); Aspartate Amino Transferase 40 U/L (14-36); Bilirubin,Total 0.3 mg/dL (0.2-1.3); Blood Urea Nitrogen 21 mg/dL (7-17); Calcium 8.8 mg/dL (8.4-10.2); Carbon Dioxide 18 mmol/L (22-30); Chloride 107 mmol/L (98-107); Estimated CRCL calculation 21 ml/min; Estimated Glomerular Filt Rate 31; Glucose 93 mg/dL (65-110); Potassium 3.9 mmol/L (3.4-5.0); Sodium 135 mmol/L (137-145)
[2021-04-12 06:12] LABS: Iron 39 ug/dL (37-170)
[2021-04-12 06:21] LABS: Percent Iron Saturation 17 % (20-50)
[2021-04-12] MEDS: ENOXAPARIN 30 MG/0.3 ML SYRINGE SUB-Q (07:42)
[2021-04-12] MEDS: FIDAXOMICIN 200 MG TABLET PO ×2 (07:42→20:56)
[2021-04-12] MEDS: FLUoxetine HCL 20 MG CAPSULE PO (07:42)
[2021-04-12] MEDS: SACCHAROMYCES BOULARDII 250 MG CAPSULE PO ×2 (07:42→17:19)
--- NOTE | 2021-04-12 11:22 | P.PNIM_ITS ---
Progress Note: A&P Assessment and Plan (1) Diverticulitis of sigmoid colon: Code(s): K57.32 - Diverticulitis of large intestine without perforation or abscess without bleeding Status: Acute Assessment and Plan: CT of the abdomen and pelvis shows possible mild uncomplicated sigmoid diverticulitis * Appreciate gastroenterology consultation * Continue IV Zosyn started on 04/09. Per GI will need to continue 1 week of oral antibiotics on discharge * Tolerating clear liquid diet. Advance to full liquids * Will need to schedule outpatient colonoscopy * Remains afebrile. No leukocytosis. (2) C. difficile colitis: Code(s): A04.72 - Enterocolitis due to Clostridium difficile, not specified as recurrent Status: Acute Assessment and Plan: Stool C diff assay was negative on 03/30. Positive C diff PCR on 04/08/2021 * Continue Dificid. Started on 04/09 * Continue probiotic * Diarrhea is improving * Continue to monitor intake and output (3) Urinary tract infection: Code(s): N39.0 - Urinary tract infection, site not specified Status: Acute Assessment and Plan: Urine culture with growth of >100k E coli * Continued on Zosyn as above which is susceptible based on urine cultures. (4) Diarrhea: Qualifiers: Diarrhea type: unspecified type Qualified Code(s): R19.7 - Diarrhea, unspecified Code(s): R19.7 - Diarrhea, unspecified Status: Acute Assessment and Plan: See above * Diarrhea is improving * Appreciate GI consultation * Additional stool cultures are pending * Continue to advance diet as tolerated (5) Chronic kidney disease, stage 3: Qualifiers: Chronic kidney disease stage 3 subtype: stage 3b (GFR 30-44) Qualified Code(s): N18.32 - Chronic kidney disease, stage 3b Code(s): N18.30 - Chronic kidney disease, stage 3 unspecified Status: Acute Assessment and Plan: Baseline creatinine appears to be around 1.5. * Labs reviewed and renal function is near baseline, slight elevation likely related to dehydration * Creatinine is trending down. 1.6 today. * Encourage oral fluid hydration (6) Chronic anemia: Code(s): D64.9 - Anemia, unspecified Status: Acute Assessment and Plan: Hemoglobin and hematocrit are stable on review of previous labs * Iron stores are adequate. * Continue to monitor H&H (7) Transaminitis: Code(s): R74.01 - Elevation of levels of liver transaminase levels Status: Acute Assessment and Plan: Intermittent elevated LFTs over the past * Trending down today * Hepatitis panel negative * Right upper quadrant ultrasound unremarkable * Continue to monitor (8) Altered mental status: Code(s): R41.82 - Altered mental status, unspecified Status: Acute Assessment and Plan: Not appreciated on my exam * She is A&O x4 answering all questions appropriately (9) Essential (primary) hypertension: Code(s): I10 - Essential (primary) hypertension Status: Acute Assessment and Plan: Patient with history of hypertension * Home antihypertensives have been on hold given her dehydration * Last BP 128/46 * Continue to hold and resume home losartan and amlodipine when clinically appropriate Subjective Date/time seen: 04/12/21 11:22 Interval history: Date of service: 04/12/2021 Nannette Nix is a 80-year-old female with a history of anemia, colon cancer
--- NOTE | 2021-04-12 11:22 | PM.IMPN ---
Progress Note: A&P Assessment and Plan (1) Diverticulitis of sigmoid colon: Code(s): K57.32 - Diverticulitis of large intestine without perforation or abscess without bleeding Status: Acute Assessment and Plan: CT of the abdomen and pelvis shows possible mild uncomplicated sigmoid diverticulitis Appreciate gastroenterology consultation Continue IV Zosyn started on 04/09. Per GI will need to continue 1 week of oral antibiotics on discharge Tolerating clear liquid diet. Advance to full liquids Will need to schedule outpatient colonoscopy Remains afebrile. No leukocytosis. (2) C. difficile colitis: Code(s): A04.72 - Enterocolitis due to Clostridium difficile, not specified as recurrent Status: Acute Assessment and Plan: Stool C diff assay was negative on 03/30. Positive C diff PCR on 04/08/2021 Continue Dificid. Started on 04/09 Continue probiotic Diarrhea is improving Continue to monitor intake and output (3) Urinary tract infection: Code(s): N39.0 - Urinary tract infection, site not specified Status: Acute Assessment and Plan: Urine culture with growth of >100k E coli Continued on Zosyn as above which is susceptible based on urine cultures. (4) Diarrhea: Qualifiers: Diarrhea type: unspecified type Qualified Code(s): R19.7 - Diarrhea, unspecified Code(s): R19.7 - Diarrhea, unspecified Status: Acute Assessment and Plan: See above Diarrhea is improving Appreciate GI consultation Additional stool cultures are pending Continue to advance diet as tolerated (5) Chronic kidney disease, stage 3: Qualifiers: Chronic kidney disease stage 3 subtype: stage 3b (GFR 30-44) Qualified Code(s): N18.32 - Chronic kidney disease, stage 3b Code(s): N18.30 - Chronic kidney disease, stage 3 unspecified Status: Acute Assessment and Plan: Baseline creatinine appears to be around 1.5. Labs reviewed and renal function is near baseline, slight elevation likely related to dehydration Creatinine is trending down. 1.6 today. Encourage oral fluid hydration (6) Chronic anemia: Code(s): D64.9 - Anemia, unspecified Status: Acute Assessment and Plan: Hemoglobin and hematocrit are stable on review of previous labs Iron stores are adequate. Continue to monitor H&H (7) Transaminitis: Code(s): R74.01 - Elevation of levels of liver transaminase levels Status: Acute Assessment and Plan: Intermittent elevated LFTs over the past Trending down today Hepatitis panel negative Right upper quadrant ultrasound unremarkable Continue to monitor (8) Altered mental status: Code(s): R41.82 - Altered mental status, unspecified Status: Acute Assessment and Plan: Not appreciated on my exam She is A&O x4 answering all questions appropriately (9) Essential (primary) hypertension: Code(s): I10 - Essential (primary) hypertension Status: Acute Assessment and Plan: Patient with history of hypertension Home antihypertensives have been on hold given her dehydration Last BP 128/46 Continue to hold and resume home losartan and amlodipine when clinically appropriate Subjective Date/time seen: 04/12/21 11:22 Interval history: Date of service: 04/12/2021 Nannette Nix is a 80-year-old female with a history of anemia, colon cancer, breast cancer, CKD, COPD, hypertension, GERD, CECELIA, diet-controlled type 2 diabetes who is seen in follow-up for diverticulitis and C diff infection. She is feeling a lot better today. She was able to tolerate her clear liquid breakfast. She has not had any stools today. She reported only having 2 episodes of stool yesterday which she described as loose but with some formed balls of stool. She notes that lately any time she has anything to eat or drink she has diarrhea immediately following
--- NOTE | 2021-04-12 12:36 | WPDGIPROGNO ---
Progress Note: A&P Assessment and Plan (1) C. difficile colitis: Code(s): A04.72 - Enterocolitis due to Clostridium difficile, not specified as recurrent Status: Acute Assessment and Plan: C difficile infection confirmed. This appears to be explanation for ongoing diarrhea. Agree with Dificid treatment. Anticipate 10 day treatment. Probiotics most beneficial after these antibiotics have been completed. (2) Altered mental status: Code(s): R41.82 - Altered mental status, unspecified Status: Acute Assessment and Plan: Patient is a poor historian. It is uncertain if this is long-term ir acute period need to continue to monitor. (3) Transaminitis: Code(s): R74.01 - Elevation of levels of liver transaminase levels Status: Acute Assessment and Plan: Patient has fluctuations in her serum transaminases. Etiology for this remains unclear. Potentially related to her current infections either urinary tract infection, diverticulitis, or C diff. Gallbladder ultrasound unremarkable. Hepatitis serologies negative. (4) Urinary tract infection: Code(s): N39.0 - Urinary tract infection, site not specified Status: Acute (5) Diverticulitis of sigmoid colon: Code(s): K57.32 - Diverticulitis of large intestine without perforation or abscess without bleeding Status: Acute Assessment and Plan: Diverticulitis suggested by admission CT scan. Consider followup colonoscopy several months after discharge and after treatment of this infection. (6) Chronic kidney disease, stage 3: Code(s): N18.30 - Chronic kidney disease, stage 3 unspecified Status: Acute Subjective Date/time seen: 04/12/21 12:36 Patient apparently with improved diarrhea. She remains a very poor historian. Review of Systems Review of Systems: ROS unobtainable: Yes unobtainable due to mental status Exam Narrative: Physical exam reveals patient be alert. Vital signs stable. HEENT exam is unremarkable. Patient anicteric. Lungs are clear. Heart without murmur. Abdomen bowel sounds present soft and nontender. no organomegaly evident. Objective Data Vital Signs Vital Signs: Vital Signs - 24 hr 04/11/21 13:45 04/11/21 13:47 04/11/21 13:49 Temperature 97.8 F Pulse Rate 65 70 103 H Respiratory Rate 16 Blood Pressure 127/76 146/75 H 113/55 L Pulse Oximetry 100 04/11/21 19:26 04/11/21 20:00 04/11/21 21:00 Temperature 97.6 F 97.6 F Pulse Rate 58 L 58 L Respiratory Rate 18 18 Blood Pressure 147/58 H 147/58 H 130/56 L Pulse Oximetry 100 100 04/12/21 04:17 04/12/21 05:07 04/12/21 09:25 Temperature 98.6 F Pulse Rate 56 L Respiratory Rate 14 Blood Pressure 129/43 L 140/56 L 128/46 L Pulse Oximetry 99 Intake/Output Intake/Output: Intake & Output 04/09/21 04/10/21 04/11/21 04/12/21 23:59 23:59 23:59 23:59 Intake Total 249 423 4196 340 Output Total 552 Balance -381 936 5252 340 Meds/Results Medications: Active Medications Generic Name Dose Route Start Last Admin Trade Name Freq PRN Reason Stop Dose Admin Enoxaparin Sodium 30 mg 04/09/21 09:00 04/12/21 07:42 Enoxaparin 30 Mg/0.3 Ml Syringe SUB-Q 30 mg DAILY NORMA Administration Fidaxomicin 200 mg 04/09/21 09:00 04/12/21 07:42 Fidaxomicin 200 Mg Tablet PO 04/19/21 08:59 200 mg Q12HR NORMA Administration Fluoxetine HCl 20 mg 04/11/21 09:00 04/12/21 07:42 Fluoxetine Hcl 20 Mg Capsule PO 20 mg DAILY NORMA Administration Piperacillin Sod/Tazobactam Sod 2.25 gm in 50 mls @ 100 mls/hr 04/09/21 00:00 04/12/21 12:32 Zosyn 2.25 Gm/D5w 50 Ml IVPB 100 mls/hr Q6HR NORMA Administration Saccharomyces Boulardii 250 mg 04/11/21 17:00 04/12/21 07:42 Saccharomyces Boulardii 250 Mg Capsule PO 250 mg BID NORMA Administration Radiology Results: ITS Impressions Abdomen/Pelvis CT 04/08/21 14:50 IMPRESSION: 1. Possible mild uncompli
--- NOTE | 2021-04-12 13:04 | PCNFU ---
Nutrition Follow-Up Complete: Inadequate Oral intake as related to Diarrhea as evidenced by poor po intake and weight loss reported. Goal; Adequate Intake of at least 75% of meals/supplements Patient is progressing towards goal. We will continue current goal. Pt current nutrition is Full liquids. Last recorded weight is 52.6 kg, stable. Bowel Motility:+Bm reported-loose stools are improving. Labs Reviewed:Na 135, GFR 31, BUN 21, Cr 1.6, Hgb 10.8, Hct 32.8 Meds Noted: Florastor, Lovenox, Dificid, Zosyn Skin: WNL Additional Notes: Patient is Cdiff positive. Stools improving. Diet order has advanced to a full liquids. Oral Intake improving. Banatrol Plus continues BID for stool bulking. Agree with diet orders. Monitoring: RD will monitor every 3 days.
[2021-04-13 03:24] VITALS: BP 114/46; PULSE 59; RESP 17; TEMP 36.4; O2SAT 97
[2021-04-13 05:54] LABS: Hematocrit 31.5 % (37.0-47.0); Hemoglobin 10.4 g/dL (12.0-15.0); Mean Corpuscular Hemoglobin 31.6 pg (26-34); Mean Corpuscular Volume 95.7 fl (80-100); Platelet Count Result 256 k/mm3 (150-375); Red Blood Count 3.29 M/mm3 (4.2-5.4); Red Cell Distribution Width 13.4 % (11.5-14.5); White Blood Count 4.7 K/mm3 (4.5-10.0)
[2021-04-13 06:00] LABS: Alanine Aminotransferase 69 U/L (4-35); Albumin Level 3.7 g/dL (3.5-5.1); Alkaline Phosphatase 105 U/L (38-126); Anion Gap 8 mmol/L (8-16); Aspartate Amino Transferase 40 U/L (14-36); Bilirubin,Total 0.3 mg/dL (0.2-1.3); Blood Urea Nitrogen 17 mg/dL (7-17); Calcium 9.1 mg/dL (8.4-10.2); Carbon Dioxide 23 mmol/L (22-30); Chloride 105 mmol/L (98-107); Estimated CRCL calculation 20 ml/min; Estimated Glomerular Filt Rate 29; Glucose 98 mg/dL (65-110); Potassium 4.2 mmol/L (3.4-5.0); Sodium 136 mmol/L (137-145)
[2021-04-13] MEDS: ENOXAPARIN 30 MG/0.3 ML SYRINGE SUB-Q (08:02)
[2021-04-13] MEDS: SACCHAROMYCES BOULARDII 250 MG CAPSULE PO (08:02)
[2021-04-13] MEDS: FIDAXOMICIN 200 MG TABLET PO (08:02)
[2021-04-13] MEDS: FLUoxetine HCL 20 MG CAPSULE PO (08:02)
--- NOTE | 2021-04-13 09:44 | WPDGIPROGNO ---
Progress Note: A&P Assessment and Plan (1) C. difficile colitis: Code(s): A04.72 - Enterocolitis due to Clostridium difficile, not specified as recurrent Status: Acute Assessment and Plan: Patient with resolving diarrhea. Appears to have been from C difficile. Plan to continue Dificid after discharge. Complete 10-14 day course. (2) Diverticulitis of sigmoid colon: Code(s): K57.32 - Diverticulitis of large intestine without perforation or abscess without bleeding Status: Acute Assessment and Plan: Patient with CT scan suggesting diverticulitis on admission. Pain is resolved. Complete course of antibiotics. Consider follow-up colonoscopy in several months electively as an outpatient. (3) Transaminitis: Code(s): R74.01 - Elevation of levels of liver transaminase levels Status: Acute Assessment and Plan: Elevated LFTs. Primarily transaminases. Suspect this is related to infectious process. Follow-up LFTs after discharge is encouraged. Hepatitis serologies an imaging of the liver are normal. (4) Urinary tract infection: Code(s): N39.0 - Urinary tract infection, site not specified Status: Acute Subjective Date/time seen: 04/13/21 09:44 Patient more alert today more oriented. Denies abdominal pain. Tolerating diet. States her diarrhea has lessened to a great deal. Anxious to go home Review of Systems Review of Systems: All systems reviewed & are unremarkable except as noted in HPI and below Exam Narrative: physical exam reveals patient to be alert. Vital signs stable. HEENT exam is unremarkable. Patient anicteric. Lungs clear. Heart without murmur. Abdomen bowel sounds present soft nontender. Objective Data Vital Signs Vital Signs: Vital Signs - 24 hr 04/12/21 15:17 04/12/21 19:35 04/12/21 20:00 Temperature 98.2 F 98.5 F 98.5 F Pulse Rate 76 63 63 Respiratory Rate 16 18 18 Blood Pressure 157/58 H 169/55 H 169/55 H Pulse Oximetry 97 100 100 04/12/21 20:01 04/12/21 20:02 04/13/21 03:24 Temperature 97.6 F Pulse Rate 59 L Respiratory Rate 17 Blood Pressure 151/54 H 111/60 114/46 L Pulse Oximetry 97 Intake/Output Intake/Output: Intake & Output 04/10/21 04/11/21 04/12/2125/22 23:59 23:59 23:59 23:59 Intake Total 910 2660 920 350 Balance 910 2660 920 350 Meds/Results Medications: Active Medications Generic Name Dose Route Start Last Admin Trade Name Juan Pablo PRN Reason Stop Dose Admin Enoxaparin Sodium 30 mg 04/09/21 09:00 04/13/21 08:02 Enoxaparin 30 Mg/0.3 Ml Syringe SUB-Q 30 mg DAILY NORMA Administration Fidaxomicin 200 mg 04/09/21 09:00 04/13/21 08:02 Fidaxomicin 200 Mg Tablet PO 04/19/21 08:59 200 mg Q12HR NORMA Administration Fluoxetine HCl 20 mg 04/11/21 09:00 04/13/21 08:02 Fluoxetine Hcl 20 Mg Capsule PO 20 mg DAILY NORMA Administration Piperacillin Sod/Tazobactam Sod 2.25 gm in 50 mls @ 100 mls/hr 04/09/21 00:00 04/13/21 05:40 Zosyn 2.25 Gm/D5w 50 Ml IVPB Infused Q6HR NORMA Infusion Saccharomyces Boulardii 250 mg 04/11/21 17:00 04/13/21 08:02 Saccharomyces Boulardii 250 Mg Capsule PO 250 mg BID NORMA Administration Radiology Results: ITS Impressions Abdomen/Pelvis CT 04/08/21 14:50 IMPRESSION: 1. Possible mild uncomplicated sigmoid diverticulitis. 2. Moderate renal atrophy. 3. Small hiatal hernia. Abdomen Ultrasound 04/09/21 14:56 IMPRESSION: 1. Unremarkable abdominal ultrasound exam. Labs Labs: Laboratory Results - last 24 hr 04/13/21 04/13/21 05:14 05:14 WBC 4.7 RBC 3.29 L Hgb 10.4 L Hct 31.5 L MCV 95.7 MCH 31.6 MCHC 33.0 RDW 13.4 Plt Count 256 MPV 9.0 Sodium 136 L Potassium 4.2 Chloride 105 Carbon Dioxide 23 Anion Gap 8 BUN 17 Creatinine 1.70 H Estim Creat Clear Calc 20 Estimated GFR 29 L Glucose 98 Calcium 9.1 Total Bilirubin 0.3
--- NOTE | 2021-04-13 13:24 | PM.DS ---
DS: Admitting Diagnosis Discharge Date 04/13/21 Admitting Diagnosis diverticulitis and C. diff DS: Discharge Diagnosis Discharge Diagnosis (1) Diverticulitis of sigmoid colon: Code(s): K57.32 - Diverticulitis of large intestine without perforation or abscess without bleeding Status: Acute Assessment and Plan: CT of the abdomen and pelvis shows possible mild uncomplicated sigmoid diverticulitis gastroenterology consultation IV Zosyn started on 04/09. Per GI will need to continue 1 week of oral antibiotics on discharge Tolerating low fiber diet Will need to schedule outpatient colonoscopy Remains afebrile. No leukocytosis. regarding abx selection, pt needs coverage for C. Diff, diverticulitis, and UTI. For C diff she will continue Fidaxomicin. UTI is resistant to fluoroquinolones but susceptible to Augmentin. Will use the Augmentin to cover for the diverticulitis and UTI. (2) C. difficile colitis: Code(s): A04.72 - Enterocolitis due to Clostridium difficile, not specified as recurrent Status: Acute Assessment and Plan: Stool C diff assay was negative on 03/30. Positive C diff PCR on 04/08/2021 Continue Dificid. Started on 04/09 Continue probiotic Diarrhea resolved Stable for discharge per GI (3) Urinary tract infection: Code(s): N39.0 - Urinary tract infection, site not specified Status: Acute Assessment and Plan: Urine culture with growth of >100k E coli Continued on Zosyn as above which is susceptible based on urine cultures. Will go home on oral abx (4) Diarrhea: Qualifiers: Diarrhea type: unspecified type Qualified Code(s): R19.7 - Diarrhea, unspecified Code(s): R19.7 - Diarrhea, unspecified Status: Acute Assessment and Plan: See above GI consultation Additional stool cultures are negative Resolved (5) Chronic kidney disease, stage 3: Qualifiers: Chronic kidney disease stage 3 subtype: stage 3b (GFR 30-44) Qualified Code(s): N18.32 - Chronic kidney disease, stage 3b Code(s): N18.30 - Chronic kidney disease, stage 3 unspecified Status: Acute Assessment and Plan: Baseline creatinine appears to be around 1.5. Labs reviewed and renal function is near baseline, slight elevation likely related to dehydration Encouraged oral fluid hydration (6) Chronic anemia: Code(s): D64.9 - Anemia, unspecified Status: Acute Assessment and Plan: Hemoglobin and hematocrit are stable on review of previous labs Iron stores are adequate. Continued to monitor H&H (7) Transaminitis: Code(s): R74.01 - Elevation of levels of liver transaminase levels Status: Acute Assessment and Plan: Intermittent elevated LFTs over the past Trending down Hepatitis panel negative Right upper quadrant ultrasound unremarkable Repeat CMP in 1 week (8) Altered mental status: Code(s): R41.82 - Altered mental status, unspecified Status: Acute Assessment and Plan: She is alert to person and place, does not know the year. I spoke w/ daughter Coral who states this is baseline for the patient and she has an appt with a neurologist soon to likely diagnose dementia. (9) Essential (primary) hypertension: Code(s): I10 - Essential (primary) hypertension Status: Acute Assessment and Plan: Patient with history of hypertension Home antihypertensives were on hold given her dehydration Stable Resume home losartan and amlodipine on discharge. Record blood pressures x1 week and follow up with pcp to further manage medications DS: Summary Hospital Course Reason for hospitalization: Nannette Nix is a 80-year-old female with a history of anemia, colon cancer, breast cancer, CKD, COPD, hypertension, GERD, CECELIA, diet-controlled type 2 diabetes admitted for diverticulitis and C diff infection. Please
== END 2021-04-13 15:15 | disposition home or self-care (01) | DRG 372 ==
LOC: ANHED 15:15 → ANH3MEDSUR 20:26 → ANH2MED 20:50
PROVIDERS: Emergency Medicine; Nurse Practitioner; Nurse Practitioner Adult Health; Physician Assistant; Admitting Provider Family Medicine; Emergency Provider Emergency Medicine; PCP Internal Medicine; Visit Provider Physician Assistant
DX: A04.72 Enterocolitis due to Clostridium difficile, not specified as recurrent (principal); K57.32 Diverticulitis of large intestine without perforation or abscess without bleeding; N39.0 Urinary tract infection, site not specified; Z16.23 Resistance to quinolones and fluoroquinolones; I12.9 Hypertensive chronic kidney disease with stage 1 through stage 4 chronic kidney disease, or unspecified chronic kidney disease; N18.32 Chronic kidney disease, stage 3b; B96.20 Unspecified Escherichia coli [E. coli] as the cause of diseases classified elsewhere; D64.9 Anemia, unspecified; F03.90 Unspecified dementia, unspecified severity, without behavioral disturbance, psychotic disturbance, mood disturbance, and anxiety; E11.22 Type 2 diabetes mellitus with diabetic chronic kidney disease; J44.9 Chronic obstructive pulmonary disease, unspecified; K21.9 Gastro-esophageal reflux disease without esophagitis; G47.33 Obstructive sleep apnea (adult) (pediatric); G25.81 Restless legs syndrome; M19.019 Primary osteoarthritis, unspecified shoulder; M48.00 Spinal stenosis, site unspecified; E55.9 Vitamin D deficiency, unspecified; Z85.038 Personal history of other malignant neoplasm of large intestine; Z85.3 Personal history of malignant neoplasm of breast; Z85.828 Personal history of other malignant neoplasm of skin; Z87.891 Personal history of nicotine dependence; Z90.49 Acquired absence of other specified parts of digestive tract; Z98.42 Cataract extraction status, left eye; Z98.41 Cataract extraction status, right eye; Z90.710 Acquired absence of both cervix and uterus
CPT/HCPCS: 36415; 74176; 76705; 80048; 80053; 80074; 81001; 83540; 83550; 83605; 83690; 83735; 84100; 84443; 85025; 85027; 87015; 87045; 87077; 87086; 87186; 87269; 87272; 87324; 87427; 87493; 96365; 96367; 96372; 99285; A9270; G0378; J0696; J1650; J2543

== ENCOUNTER 2021-06-09 09:51 | Observation (INO) | payer MEDICARE, SELFPAY ==
[2021-06-09] VITALS (10 sets, daily range): BP systolic 123–166; BP diastolic 55–75; PULSE 59–82; RESP 12–22; TEMP 35.6–36.1; O2SAT 98–100; BMI 18.1
--- NOTE | ~2021-06-09 | CT_ITS ---
EXAMINATION: CT abdomen pelvis wo con DATE: 06/09/2021 11:24 INDICATION: Elevated lipase. Vomiting. TECHNIQUE: Computed tomography (CT) of the abdomen and pelvis was performed without intravenous contr ast. The dose-length product was 176.53 mGy-cm. Automated exposure control and iterative reconstructi on technique were employed. COMPARISON: CT dated 04/08/2021. FINDINGS: Mild chronic interstitial lung disease of the right middle and left lower lobes. No signifi cant pleural or pericardial effusion. Heart size normal. Status post cholecystectomy. The liver, sple en, pancreas, adrenal glands are unremarkable. There is bilateral renal atrophy. There are nonobstruc ting left renal stones. Status post cecectomy. Nonobstructive bowel gas pattern. No evidence for dive rticulitis. Gallbladder is surgically absent. No significant vascular abnormality. No lymphadenopathy . Small hiatal hernia. IMPRESSION: 1. No acute abdominal abnormality. 2: Nonobstructing left nephrolithiasis with bilateral renal atrophy. Reviewed, dictated and finalized at location A.
--- NOTE | 2021-06-09 10:12 | ED.NAVMDI ---
HPI - Nausea/Vomiting/Diarrhea General Chief complaint: Nausea/Vomiting/Diarrhea Stated complaint: Vomiting x3 Days Time Seen by Provider: 06/09/21 09:58 History of Present Illness HPI Narrative: 80 y/o female presents to the ER today for complaints of nausea and vomiting in the morning for the past 4 days. She says that she wakes up with acid taste in her mouth and then she vomits and says it is straight acid. She says that she feels fine the rest of the day and is able to drink and eat like normal. She denies having any abdominal pain. But she has tenderness when epigastric area palpated. No heartburn symptoms. No chest pain. She was admitted in March for c diff infection. She has not been on her protonix since that admission. She has a history of GERD. She has been referred to GI for follow up since she still gets diarrhea off and on since the c diff infection. This appt is not until June. Her c diff infection has cleared up. She is not having diarrhea stools all the time, it just comes and goes. She is on a probiotic now for this. Related Data Home Medications Medication Instructions Recorded Confirmed acetaminophen [Tylenol] 650 mg PO PRN PRN 11/21/20 05/05/21 Allergies Allergy/AdvReac Type Severity Reaction Status Date / Time codeine Allergy Intermediate Rash Verified 06/09/21 10:04 Review of Systems Constitutional: Constitutional: Denies chills, Denies fatigue and Denies fever(s) ENT: Denies sore throat Cardiovascular: Cardiovascular: Denies chest pain Respiratory: Respiratory: Denies chest congestion, Denies cough, Denies dyspnea and Denies wheezing Gastrointestinal: Gastrointestinal: Denies abdominal pain, Denies bloating, Denies constipation, Denies heartburn, Reports diarrhea, Reports nausea and Reports vomiting Genitourinary: Genitourinary: Denies dysuria Musculoskeletal: Musculoskeletal: Denies back pain, Denies myalgias and Denies arthralgias Integumentary/Breasts: Skin/Breast: Denies rash Neurologic: Denies dizziness and Denies weakness Psychiatric: Psychiatric: Denies anxiety and Denies depression Endocrine: Endocrine: Denies fatigue Hematologic/Lymphatic: Hematologic/Lymphatic: Denies easy bleeding and Denies easy bruising Allergic/Immunologic: Allergic/Immunologic: Reports no additional allergic/immunologic complaints [facility] Past Medical History Medical History (Updated 06/09/21 @ 15:05 by Karla Nix, ANKUR) Anemia Anxiety Basal cell carcinoma of face Breast cancer 1989 s/p lumpectomy to right, no chemo or radiation needed. Carotid stenosis Left 48% and right 55% 05/2018 Chronic kidney disease, stage 3 Chronic obstructive pulmonary disease Depression Diet-controlled diabetes mellitus Hemoglobin A1c was 5.9% on 01/22/2021. Former smoker Gastroesophageal reflux disease Hiatal hernia History of colon cancer Found after polyp removal, was removed with partial colectomy, no chemo or radiation needed Hyperlipidemia, unspecified Memory loss Restless legs Shoulder arthritis Spinal stenosis Suspected sleep apnea Patient never completed her sleep study. Syncope (06/12/18) Vitamin D deficiency Surgical History Surgical History History of cataract extraction with lens replacement History of cholecystectomy History of colonoscopy 2016 resulting in cauterization of a polyp and caused perforation requiring surgery and partial colon resection. History of hysterectomy History of lumpectomy of right breast History of partial surgical removal of colon Partial colectomy 2016 after polyp was removed and caused perforation of colon History of stress incontinence procedure using tension free vaginal tape Family History Family History Mother Cerebrovascular accident Hypertension Family history of transient ischemic attacks Sibling Family history of coronary artery di
[2021-06-09 10:47] LABS: Basophils Absolute Auto 0.1 K/mm3 (0.0-0.1); Basophils Percent Auto 0.8 % (0.2-1.2); Eosinophils Absolute Auto 0.1 K/mm3 (0-0.3); Eosinophils Percent Auto 0.8 % (0-4.4); Hematocrit 36.1 % (37.0-47.0); Hemoglobin 11.7 g/dL (12.0-15.0); Immature Granulocyte Absolute 0.01 K/mm3 (0.00-0.031); Immature Granulocyte Percent A 0.2 % (0-0.5); Lymphocytes Absolute Auto 1.43 K/mm3 (0.9-3.2); Lymphocytes Percent Auto 24.1 % (18.3-44.2); Mean Corpuscular HGB Conc 32.4 g/dl (32-36); Mean Corpuscular Hemoglobin 32.1 pg (26-34); Mean Corpuscular Volume 98.9 fl (80-100); Mean Platelet Volume 8.7 fl (7.4-10.4); Monocytes Absolute Auto 0.4 K/mm3 (0.1-0.6); Monocytes Percent Auto 6.9 % (2.6-8.5); Neutrophils Percent Auto 67.2 % (45.5-73.1); Platelet Count Result 244 k/mm3 (150-375); Red Blood Count 3.65 M/mm3 (4.2-5.4); Red Cell Distribution Width 13.2 % (11.5-14.5); White Blood Count 5.9 K/mm3 (4.5-10.0)
[2021-06-09] MEDS: PANTOPRAZOLE 40 MG TABLET PO (10:56)
[2021-06-09 11:01] LABS: Alanine Aminotransferase 29 U/L (4-35); Albumin Level 4.3 g/dL (3.5-5.1); Alkaline Phosphatase 82 U/L (38-126); Anion Gap 8 mmol/L (8-16); Aspartate Amino Transferase 41 U/L (14-36); Bilirubin,Total 0.4 mg/dL (0.2-1.3); Blood Urea Nitrogen 32 mg/dL (7-17); Carbon Dioxide 21 mmol/L (22-30); Chloride 107 mmol/L (98-107); Estimated Glomerular Filt Rate 36; Glucose 112 mg/dL (65-110); Lipase 910 U/L (23-300); Potassium 4.1 mmol/L (3.4-5.0); Sodium 136 mmol/L (137-145)
[2021-06-09] MEDS: SODIUM CHLORIDE 0.9% IV 1,000 ML 999 ML IV CONT (11:17)
[2021-06-09 11:47] LABS: Amylase 230 U/L (30-110)
[2021-06-09] MEDS: ONDANSETRON INJ 4 MG/2 ML VIAL IV PUSH (13:23)
[2021-06-09 13:36] LABS: Add Urine Microscopic? YES; Appearance Urine Clear (Clear); Bilirubin Urine Negative (Negative); Blood Urine 1+ (Negative); Color Urine Yellow (Yellow); Glucose Urine UA Negative (Negative); Ketones Urine Negative (Negative); Leukocyte Esterase Ur Negative LEU/UL (Negative); Mucus Urine Rare /lpf; Nitrate Urine Negative (Negative); Protein Urine 2+ mg/dL (Negative); RBC Urine 0-2 /hpf (0-2); Specific Grav Ur 1.016 (1.001-1.035); Squamous Epithelial Cell Urine Rare /hpf (Few); Urobilinogen Urine Negative mg/dL (<2.0); WBC Urine 0-3 /hpf
--- NOTE | 2021-06-09 14:30 | PM.IMHP ---
H&P: HPI History of Present Illness Date/Time: 06/09/21 14:30 Chief Complaint: ?Acid taste in my mouth and vomiting. Narrative: This is a pleasant 80-year-old female with history of colon cancer, hypertension, hyperlipidemia, diet-controlled diabetes, GERD, and several other comorbidities who presented to the emergency department for evaluation of ?an acid taste in my mouth every morning with vomiting.? She is a pretty good historian however admits that she has short-term memory loss and at time she has difficulties with her timeline. She is known to myself and the hospitalist service from a relatively recent admission about a month and a half ago at which time she presented with diarrhea and sigmoid diverticulitis, ultimately testing positive for C. diff. The past 4 or 5 days she has been waking up in the morning with a significant taste of acid in her stomach up into her chest and throat and eventually she has 1 or 2 episodes of emesis which she describes as yellow and a bit mucousy in nature. Thereafter she feels better and is able to eat her breakfast. Throughout the day she does not really eat much however as her appetite has not been great and she estimates that she has lost about 12 lb in the last month and half or so. She has had a couple of soft stools today but she is no longer having diarrhea. She denies chest pain, abdominal pain (notice Lui tender in epigastric region on exam), shortness of breath, hematemesis, melena, and hematochezia. She has not noticed any significant abdominal bloating however she has had quite a bit of gas, mainly belching. Review of Systems Review of Systems: Twelve systems were reviewed. No fever, chills, or sweats. She denies cold and flu symptoms. She has been getting more fatigued than usual recently. Except as documented, all other systems were reviewed and are negative. [facility] Past Medical History Medical History (Updated 06/09/21 @ 22:00 by Bianca Cruz PA-C) Anemia Anxiety Basal cell carcinoma of face Breast cancer (1989) Status post lumpectomy. No chemo or radiation. Carotid stenosis (05/2018) 48% stenosis in the left ICA and 55% in the right ICA. Chronic kidney disease, stage 3 Chronic obstructive pulmonary disease Depression Diet-controlled diabetes mellitus Hemoglobin A1c was 5.9% on 01/22/2021. Former smoker Gastroesophageal reflux disease Hiatal hernia History of colon cancer Completely excised on right colectomy requiring no other treatment. Hyperlipidemia, unspecified Memory loss Restless legs Shoulder arthritis Spinal stenosis Suspected sleep apnea Patient never completed her sleep study. Syncope (06/12/18) Vitamin D deficiency Surgical History Surgical History History of cataract extraction with lens replacement History of cholecystectomy History of colonoscopy 2016 resulting in cauterization of a polyp and caused perforation requiring surgery and partial colon resection. History of hysterectomy History of lumpectomy of right breast History of partial surgical removal of colon Partial colectomy 2016 after polyp was removed and caused perforation of colon History of stress incontinence procedure using tension free vaginal tape Family History Family History Mother Cerebrovascular accident Hypertension Family history of transient ischemic attacks Sibling Family history of coronary artery disease Father Family history of transient ischemic attacks Patient's father is , Onset Age: 59 Family history of chronic obstructive pulmonary disease Colon cancer Other Family history of diabetes mellitus in first degree relative Social History Social History (Updated 06/09/21 @ 21:59 by Bianca Cruz PA-C) Social History: Healthcare power of county attorney: Coral King, daughter. Code status: Full code. Smoking packs per day: 2 S
--- NOTE | 2021-06-09 15:10 | ADMGEN ---
This patient, Nannette Nix, was admitted to 3 [facility] Surg Room 302-01. Patient/family oriented to hospital policies and general routines including ID bracelet, bed and alarms, visiting hours, pain management, procedures, bathroom and other care routines, personal items, smoking policy, room service/diet, and visiting hours. Information on how to activate the Rapid Response Team has been discussed. Patient/Family are encouraged to report perceived risks to care and to ask questions if they do not understand what they are told or what they should do.
[2021-06-09] MEDS: SODIUM CHLORIDE 0.9% IV 1,000 ML 75 ML IV CONT (16:46)
[2021-06-09] MEDS: FAMOTIDINE 20 MG/2 ML VIAL IV PUSH (19:57)
[2021-06-10 06:00] VITALS: BP 141/63; PULSE 70; RESP 16; TEMP 35.7; O2SAT 100
[2021-06-10 06:48] LABS: Hematocrit 31.1 % (37.0-47.0); Hemoglobin 10.4 g/dL (12.0-15.0); Mean Corpuscular HGB Conc 33.4 g/dl (32-36); Mean Corpuscular Hemoglobin 32.4 pg (26-34); Mean Corpuscular Volume 96.9 fl (80-100); Mean Platelet Volume 8.5 fl (7.4-10.4); Platelet Count Result 206 k/mm3 (150-375); Red Blood Count 3.21 M/mm3 (4.2-5.4); Red Cell Distribution Width 13.1 % (11.5-14.5); White Blood Count 5.3 K/mm3 (4.5-10.0)
[2021-06-10 07:01] LABS: Anion Gap 5 mmol/L (8-16); Blood Urea Nitrogen 22 mg/dL (7-17); Calcium 8.7 mg/dL (8.4-10.2); Carbon Dioxide 22 mmol/L (22-30); Chloride 109 mmol/L (98-107); Estimated CRCL calculation 26 ml/min; Estimated Glomerular Filt Rate 39; Glucose 86 mg/dL (65-110); Lipase 428 U/L (23-300); Magnesium 1.9 mg/dL (1.6-2.3); Potassium 4.2 mmol/L (3.4-5.0); Sodium 136 mmol/L (137-145)
[2021-06-10 08:00] VITALS: O2SAT 100
[2021-06-10 08:11] VITALS: O2SAT 99
[2021-06-10] MEDS: LOSARTAN POTASSIUM 50 MG TABLET PO (09:11)
[2021-06-10] MEDS: FAMOTIDINE 20 MG/2 ML VIAL IV PUSH (09:11)
[2021-06-10] MEDS: amLODIPine BESYLATE 5 MG TABLET PO (09:12)
[2021-06-10] MEDS: FLUoxetine HCL 20 MG CAPSULE PO (09:12)
--- NOTE | 2021-06-10 10:01 | PM.IMPN ---
Progress Note: A&P Assessment and Plan (1) Epigastric pain: Code(s): R10.13 - Epigastric pain Status: Acute (2) Elevated lipase: Code(s): R74.8 - Abnormal levels of other serum enzymes Status: Acute (3) Gastroesophageal reflux disease: Qualifiers: Esophagitis presence: esophagitis presence not specified Qualified Code(s): K21.9 - Gastro-esophageal reflux disease without esophagitis Code(s): K21.9 - Gastro-esophageal reflux disease without esophagitis Status: Acute (4) Vomiting: Code(s): R11.10 - Vomiting, unspecified Status: Acute (5) Chronic anemia: Code(s): D64.9 - Anemia, unspecified Status: Acute (6) Chronic kidney disease, stage 3: Qualifiers: Chronic kidney disease stage 3 subtype: stage 3b (GFR 30-44) Qualified Code(s): N18.32 - Chronic kidney disease, stage 3b Code(s): N18.30 - Chronic kidney disease, stage 3 unspecified Status: Acute (7) Essential (primary) hypertension: Code(s): I10 - Essential (primary) hypertension Status: Acute Additional Plan The patient presented to the ER today for evaluation of epigastric discomfort, vomiting, and what sounds like pretty significant indigestion. CT of the abdomen pelvis did not show any acute abdominal abnormality but her amylase and lipase came back slightly elevated. Her lipase has been elevated somewhat for quite some time. Given her history I am wondering if she may have gastritis, ulcers, or the like. She has been started on famotidine (pantoprazole previously discontinued given C diff) and I will consult GI to see her for possible endoscopy. Creatinine and hemoglobin/hematocrit are stable on review of previous labs. She does appear a bit dry on exam thus she will be hydrated cautiously. Blood pressures were reviewed and they are stable. Continue antihypertensives and monitor daily. The rest of her home medications will be reviewed and resumed as appropriate. Subjective Date/time seen: 06/10/21 10:01 Interval history: Nannette Nix is a 80-year-old female with a history of anemia, colon cancer, breast cancer, CKD, COPD, hypertension, GERD, CECELIA, diet-controlled type 2 diabetes, admitted for abdominal pain. Pt is feeling better today. No N/V/abd pain. Has not had a BM. No cp/sob. Review of Systems Review of Systems: All systems reviewed & are unremarkable except as noted in HPI and below Exam Narrative: General: Thin, frail elderly female sitting up in bed. Weight: 48 kg. BMI: 18.2. HEENT: Hard of hearing, wearing hearing aid. PERRL. Sclerae anicteric. Moist mucous membranes. Neck: Supple. Respiratory: Lungs are clear to auscultation bilaterally. Cardiovascular: Regular rate and rhythm with S1-S2. Gastrointestinal: Abdomen is soft and nondistended with positive bowel sounds. Non tender. No rebound or guarding. Skin: Warm and dry. No rash or lesions on limited exam. Extremities: No cyanosis, clubbing, or edema. Radial and pedal pulses intact. Neurological: Alert. Cranial nerves 2-12 are grossly intact. Speech is clear. No gross focal deficits. Psychiatric: Pleasant and cooperative with appropriate mood and affect. Somewhat forgetful. Objective Data Vital Signs Vital Signs: Vital Signs - 24 hr 06/09/21 10:16 06/09/21 10:31 06/09/21 11:01 Temperature Pulse Rate 75 64 59 L Respiratory Rate 22 H 20 14 Blood Pressure 130/66 132/65 123/61 Pulse Oximetry 98 99 100 06/09/21 14:58 06/09/21 15:24 06/09/21 15:48 Temperature 96.1 F L 96.1 F L Pulse Rate 63 59 L 59 L Respiratory Rate 16 18 18 Blood Pressure 166/66 H 159/60 H Pulse Oximetry 100 100 100 06/09/21 21:55 06/10/21 06:00 06/10/21 08:11 Temperature 97.0 F L 96.3 F L Pulse Rate 67 70 Respiratory Rate 18 16 Blood Pressure 148/55 H 141/63 H Pulse Oximetry 99 100 99 Intake/Output Intake/Output: Intake & Output 06/07/21 06/08/21 06/09/21 06/10/21
[2021-06-10] MEDS: SODIUM CHLORIDE 0.9% IV 1,000 ML 100 ML IV CONT (10:55)
[2021-06-10 14:00] VITALS: BP 148/50; PULSE 62; RESP 19; TEMP 35.8; O2SAT 99
--- NOTE | 2021-06-10 14:51 | WPDGICN ---
Assessment and Plan Assessment and plan (1) Epigastric pain: Code(s): R10.13 - Epigastric pain Status: Acute Assessment and Plan: Patient reported to have epigastric pain perhaps a bitter taste in her mouth at the time of presentation. Currently she denies any specific symptoms that she can't describe she appears to have poor memory. I would recommend restarting the pantoprazole. If pain persists we can consider elective EGD. Currently she has no pain. Will advance diet as tolerated reassess morning. (2) Memory loss: Code(s): R41.3 - Other amnesia Status: Acute Assessment and Plan: Patient has rather significant memory loss making any history difficult to obtain. She may benefit Neurology evaluation. (3) Elevated lipase: Code(s): R74.8 - Abnormal levels of other serum enzymes Status: Acute Assessment and Plan: Patient has chronically elevated lipase. Imaging studies revealed no evidence of pancreatitis. This pattern is been evident over recent admissions. Would follow conservatively at this point. Elevated lipase may be related to decreased kidney function. (4) History of colon cancer: Code(s): Z85.038 - Personal history of other malignant neoplasm of large intestine Status: Acute Assessment and Plan: Patient has a history of colon cancer and partial resection of the colon. Most recent colonoscopy 2021 unremarkable at that time. We have considered follow-up electively because of recent C diff in diverticulitis but this can be deferred at present time. GI Consult Note Consult date/time: 06/10/21 14:51 HPI: Nannette Nix is a 80 year old female I am asked to see because of vague abdominal discomfort. Patient is unable to tell me why she is in the hospital her weight complaints she had that led her to come here. She appears to have poor memory. Review of recent records reveal in the emergency room and primary care service she complains of an acid taste in her mouth. Patient has a past medical history of GE reflux disease. In March she was found to have C difficile infection causing diarrhea that was treated with Dificid and she also had diverticulitis. These have now resolved. She no longer has diarrhea. Patient has a distant history of colon cancer in a partial colectomy. She has been treated for hypertension, hyperlipidemia, diabetes mellitus. Patient apparently was previously on pantoprazole but this was stopped because of C diff. (although this is not felt to clinically be necessary.) Review of Systems Review of Systems: All systems reviewed & are unremarkable except as noted in HPI and below PMFSH Past Medical History Medical History (Updated 06/10/21 @ 14:55 by Jet Glover MD) Anemia Anxiety Basal cell carcinoma of face Breast cancer (1989) Status post lumpectomy. No chemo or radiation. Carotid stenosis (05/2018) 48% stenosis in the left ICA and 55% in the right ICA. Chronic kidney disease, stage 3 Chronic obstructive pulmonary disease Depression Diet-controlled diabetes mellitus Hemoglobin A1c was 5.9% on 01/22/2021. Former smoker Gastroesophageal reflux disease Hiatal hernia History of colon cancer Completely excised on right colectomy requiring no other treatment. Hyperlipidemia, unspecified Memory loss Restless legs Shoulder arthritis Spinal stenosis Suspected sleep apnea Patient never completed her sleep study. Syncope (06/12/18) Vitamin D deficiency Surgical History Surgical History History of cataract extraction with lens replacement History of cholecystectomy History of colonoscopy 2016 resulting in cauterization of a polyp and caused perforation requiring surgery and partial colon resection. History of hysterectomy History of lumpectomy of right breast History of partial surgical removal of colon Partial colectomy 2017 after polyp w
[2021-06-10] MEDS: PANTOPRAZOLE SODIUM IV 40 MG VIAL IV PUSH (20:18)
[2021-06-10 21:29] VITALS: O2SAT 97
[2021-06-10 22:00] VITALS: BP 153/58; PULSE 64; RESP 16; TEMP 36.8; O2SAT 100
[2021-06-11] MEDS: SODIUM CHLORIDE 0.9% IV 1,000 ML 100 ML IV CONT (03:15)
[2021-06-11 06:00] VITALS: BP 167/57; PULSE 55; RESP 16; TEMP 36.6; O2SAT 93
--- NOTE | 2021-06-11 07:34 | WPDGIPROGNO ---
Progress Note: A&P Assessment and Plan (1) Dyspepsia: Code(s): R10.13 - Epigastric pain Status: Acute Assessment and Plan: patient admitted to the hospital with apparent dyspepsia. Her GERD symptoms of pain burning have improved. Would recommend pantoprazole 40mg p.o. daily. [place] diet is suggested. I see no contraindication to taking pantoprazole despite recent recovery from C diff. (2) Epigastric pain: Code(s): R10.13 - Epigastric pain Status: Acute (3) History of colon cancer: Code(s): Z85.038 - Personal history of other malignant neoplasm of large intestine Status: Acute Assessment and Plan: patient has a distant history of colon cancer. Colonoscopy 2 years ago was unremarkable. (4) Diet-controlled diabetes mellitus: Code(s): E11.9 - Type 2 diabetes mellitus without complications Status: Acute Additional Plan Patient has a history of C diff in March for which she has now recovered. She had diverticulitis at that time. Consideration towards elective colonoscopy was discussed but optional given her age. If necessary this can be considered as an outpatient. Would suggest advancing diet to a bland diet continue pantoprazole and discharge if patient remains asymptomatic. Subjective Date/time seen: 06/11/21 07:34 Patient alert comfortable this morning. Slept well. Tolerating diet without difficulty. She denies abdominal pain. Offers no specific complaints this morning. Review of Systems Review of Systems: All systems reviewed & are unremarkable except as noted in HPI and below Exam Narrative: Physical exam reveals patient to be alert. Vital signs stable. HEENT is unremarkable. Patient is anicteric. Lungs are clear to auscultation and percussion. Heart is without murmur or extra sounds. Abdomen bowel sounds are present soft nontender with no organomegaly. Objective Data Vital Signs Vital Signs: Vital Signs - 24 hr 06/10/21 08:00 06/10/21 08:11 06/10/21 14:00 Temperature 96.4 F L Pulse Rate 62 Respiratory Rate 19 Blood Pressure 148/50 H Pulse Oximetry 100 99 99 06/10/21 21:29 06/10/21 22:00 06/11/21 06:00 Temperature 98.3 F 97.8 F Pulse Rate 64 55 L Respiratory Rate 16 16 Blood Pressure 153/58 H 167/57 H Pulse Oximetry 97 100 93 Intake/Output Intake/Output: Intake & Output 06/08/21 06/09/21 06/10/21 06/11/21 23:59 23:59 23:59 23:59 Intake Total 1000 2440 Balance 1000 2440 Meds/Results Medications: Active Medications Generic Name Dose Route Start Last Admin Trade Name Freq PRN Reason Stop Dose Admin Acetaminophen 650 mg 06/09/21 22:06 Acetaminophen 325 Mg Tablet PO Q6H PRN Fever Or Pain Amlodipine Besylate 5 mg 06/10/21 09:00 06/10/21 09:12 Amlodipine Besylate 5 Mg Tablet PO 5 mg DAILY NORMA Administration Fluoxetine HCl 20 mg 06/10/21 09:00 06/10/21 09:12 Fluoxetine Hcl 20 Mg Capsule PO 20 mg DAILY NORMA Administration Sodium Chloride 1,000 mls @ 100 mls/hr 06/10/21 10:15 06/11/21 03:15 Normal Saline Iv IV CONT 100 mls/hr .Q10H NORMA Administration Losartan Potassium 50 mg 06/10/21 09:00 06/10/21 09:11 Losartan Potassium 50 Mg Tablet PO 50 mg DAILY NORMA Administration Ondansetron HCl 4 mg 06/09/21 12:52 06/09/21 13:23 Ondansetron Inj 4 Mg/2 Ml Vial IV PUSH 4 mg Q4H PRN Administration Nausea Pantoprazole Sodium 40 mg 06/10/21 21:00 06/10/21 20:18 Pantoprazole Sodium Iv 40 Mg Vial IV PUSH 40 mg Q12HR NORMA Administration Radiology Results: ITS Impressions Abdomen/Pelvis CT 06/09/21 11:29 IMPRESSION: 1. No acute abdominal abnormality. 2: Nonobstructing left nephrolithiasis with bilateral renal atrophy.
[2021-06-11 08:19] LABS: Basophils Percent Auto 0.6 % (0.2-1.2); Eosinophils Percent Auto 0.4 % (0-4.4); Hematocrit 32.6 % (37.0-47.0); Hemoglobin 10.8 g/dL (12.0-15.0); Immature Granulocyte Absolute 0.01 K/mm3 (0.00-0.031); Immature Granulocyte Percent A 0.2 % (0-0.5); Lymphocytes Absolute Auto 1.16 K/mm3 (0.9-3.2); Lymphocytes Percent Auto 22.4 % (18.3-44.2); Mean Corpuscular HGB Conc 33.1 g/dl (32-36); Mean Corpuscular Hemoglobin 32.3 pg (26-34); Mean Corpuscular Volume 97.6 fl (80-100); Mean Platelet Volume 8.3 fl (7.4-10.4); Monocytes Absolute Auto 0.5 K/mm3 (0.1-0.6); Monocytes Percent Auto 8.7 % (2.6-8.5); Neutrophils Absolute Auto 3.5 K/mm3 (1.3-6.7); Neutrophils Percent Auto 67.7 % (45.5-73.1); Platelet Count Result 194 k/mm3 (150-375); Red Blood Count 3.34 M/mm3 (4.2-5.4); White Blood Count 5.2 K/mm3 (4.5-10.0)
[2021-06-11 08:28] LABS: Alanine Aminotransferase 24 U/L (4-35); Albumin Level 3.9 g/dL (3.5-5.1); Alkaline Phosphatase 83 U/L (38-126); Amylase 143 U/L (30-110); Anion Gap 5 mmol/L (8-16); Aspartate Amino Transferase 33 U/L (14-36); Bilirubin,Total 0.6 mg/dL (0.2-1.3); Blood Urea Nitrogen 19 mg/dL (7-17); Calcium 8.8 mg/dL (8.4-10.2); Carbon Dioxide 23 mmol/L (22-30); Chloride 107 mmol/L (98-107); Estimated CRCL calculation 26 ml/min; Estimated Glomerular Filt Rate 39; Glucose 93 mg/dL (65-110); Lipase 242 U/L (23-300); Potassium 3.7 mmol/L (3.4-5.0); Sodium 135 mmol/L (137-145)
--- NOTE | 2021-06-11 09:36 | PM.DS ---
DS: Admitting Diagnosis Discharge Date 06/11/21 Admitting Diagnosis nausea/vomiting DS: Discharge Diagnosis Discharge Diagnosis (1) Epigastric pain: Code(s): R10.13 - Epigastric pain Status: Acute Assessment and Plan: -The patient presented to the ER for evaluation of epigastric discomfort, vomiting, and what sounds like pretty significant indigestion. -CT of the abdomen pelvis did not show any acute abdominal abnormality but her amylase and lipase came back slightly elevated. -Her lipase has been elevated somewhat for quite some time. Given her history, GI was consulted -She was started on famotidine initially (pantoprazole previously discontinued given C diff) - however GI Dr. Glover restarted the protonix as he sees no contraindication -she is now asymptomatic and tolerating a bland diet without difficulty. Seen this morning by Dr. Glover who agrees with plan to discharge today. She will continue with a bland diet, protonix, and outpatient follow up. -pt is non toxic appearing with stable vitals, stable for discharge at this time. All questions and concerns were addressed. return precautions provided. (2) Elevated lipase: Code(s): R74.8 - Abnormal levels of other serum enzymes Status: Acute Assessment and Plan: as above (3) Gastroesophageal reflux disease: Qualifiers: Esophagitis presence: esophagitis presence not specified Qualified Code(s): K21.9 - Gastro-esophageal reflux disease without esophagitis Code(s): K21.9 - Gastro-esophageal reflux disease without esophagitis Status: Acute Assessment and Plan: as above (4) Vomiting: Code(s): R11.10 - Vomiting, unspecified Status: Acute Assessment and Plan: as above (5) Chronic anemia: Code(s): D64.9 - Anemia, unspecified Status: Acute Assessment and Plan: -stable from prior (6) Chronic kidney disease, stage 3: Qualifiers: Chronic kidney disease stage 3 subtype: stage 3b (GFR 30-44) Qualified Code(s): N18.32 - Chronic kidney disease, stage 3b Code(s): N18.30 - Chronic kidney disease, stage 3 unspecified Status: Acute Assessment and Plan: -stable from prior (7) Essential (primary) hypertension: Code(s): I10 - Essential (primary) hypertension Status: Acute Assessment and Plan: -home meds -stable DS: Summary Hospital Course Reason for hospitalization: Nannette E Boyd is a 80-year-old female with a history of anemia, colon cancer, breast cancer, CKD, COPD, hypertension, GERD, CECELIA, diet-controlled type 2 diabetes, admitted for nausea and abdominal pain. Please see HPI for further details. Hospital Course: Please see above for details of hospital course. Status at Discharge Cognitive/behavioral status at discharge: stable Functional status at discharge: independent ambulation Time Spent with Patient Time attestation: Total time spent providing and/or coordinating discharge services: 32 Time spent: Greater than 30 minutes Exam Narrative: General: Thin, frail elderly female sitting up in bed. Weight: 48 kg. BMI: 18.2. HEENT: Hard of hearing, wearing hearing aid. PERRL. Sclerae anicteric. Moist mucous membranes. Neck: Supple. Respiratory: Lungs are clear to auscultation bilaterally. Cardiovascular: Regular rate and rhythm with S1-S2. Gastrointestinal: Abdomen is soft and nondistended with positive bowel sounds. Non tender. No rebound or guarding. Skin: Warm and dry. No rash or lesions on limited exam. Extremities: No cyanosis, clubbing, or edema. Radial and pedal pulses intact. Neurological: Alert. Cranial nerves 2-12 are grossly intact. Speech is clear. No gross focal deficits. Psychiatric: Pleasant and cooperative with appropriate mood and affect. Somewhat forgetful. DS: Data Data Completed and Pending Labs on day of discharg
[2021-06-11] MEDS: amLODIPine BESYLATE 5 MG TABLET PO (09:59)
[2021-06-11] MEDS: LOSARTAN POTASSIUM 50 MG TABLET PO (09:59)
[2021-06-11] MEDS: PANTOPRAZOLE SODIUM IV 40 MG VIAL IV PUSH (09:59)
[2021-06-11] MEDS: FLUoxetine HCL 20 MG CAPSULE PO (09:59)
== END 2021-06-11 12:13 | disposition home or self-care (01) ==
LOC: ANHED 10:13 → ANH3MEDSUR 13:45
PROVIDERS: Physician Assistant; Admitting Provider Family Medicine; Emergency Provider Nurse Practitioner Family; PCP Internal Medicine; Visit Provider Internal Medicine
DX: R10.13 Epigastric pain (principal); R74.8 Abnormal levels of other serum enzymes; K21.9 Gastro-esophageal reflux disease without esophagitis; R11.10 Vomiting, unspecified; D64.9 Anemia, unspecified; I12.9 Hypertensive chronic kidney disease with stage 1 through stage 4 chronic kidney disease, or unspecified chronic kidney disease; N18.32 Chronic kidney disease, stage 3b; E55.9 Vitamin D deficiency, unspecified; E78.5 Hyperlipidemia, unspecified; E11.22 Type 2 diabetes mellitus with diabetic chronic kidney disease; F32.A Depression, unspecified; F41.9 Anxiety disorder, unspecified; J44.9 Chronic obstructive pulmonary disease, unspecified; R41.3 Other amnesia; Z87.891 Personal history of nicotine dependence; Z85.3 Personal history of malignant neoplasm of breast; Z85.828 Personal history of other malignant neoplasm of skin; Z98.49 Cataract extraction status, unspecified eye; Z85.038 Personal history of other malignant neoplasm of large intestine; Z96.1 Presence of intraocular lens; Z90.49 Acquired absence of other specified parts of digestive tract; Z90.710 Acquired absence of both cervix and uterus
CPT/HCPCS: 36415; 51701; 74176; 80048; 80053; 81001; 82150; 83690; 83735; 85025; 85027; 96361; 96374; 96375; 96376; 99285; A9270; C9113; G0378; J2405; J7030

== ENCOUNTER 2021-11-02 13:01 | Outpatient (CLI) | payer MEDICARE, SELFPAY ==
[2021-11-02 20:58] LABS: Basophils Absolute Auto 0.1 K/mm3 (0.0-0.1); Basophils Percent Auto 0.9 % (0.2-1.2); Eosinophils Absolute Auto 0.1 K/mm3 (0-0.3); Eosinophils Percent Auto 1.4 % (0-4.4); Hematocrit 33.8 % (37.0-47.0); Hemoglobin 10.7 g/dL (12.0-15.0); Immature Granulocyte Absolute 0.02 K/mm3 (0.00-0.031); Immature Granulocyte Percent A 0.3 % (0-0.5); Lymphocytes Absolute Auto 1.94 K/mm3 (0.9-3.2); Lymphocytes Percent Auto 33.9 % (18.3-44.2); Mean Corpuscular HGB Conc 31.7 g/dl (32-36); Mean Corpuscular Hemoglobin 30.7 pg (26-34); Mean Corpuscular Volume 97.1 fl (80-100); Mean Platelet Volume 9.1 fl (7.4-10.4); Monocytes Absolute Auto 0.5 K/mm3 (0.1-0.6); Monocytes Percent Auto 8.7 % (2.6-8.5); Neutrophils Absolute Auto 3.1 K/mm3 (1.3-6.7); Neutrophils Percent Auto 54.8 % (45.5-73.1); Platelet Count Result 269 k/mm3 (150-375); Red Blood Count 3.48 M/mm3 (4.2-5.4); Red Cell Distribution Width 13.8 % (11.5-14.5); White Blood Count 5.7 K/mm3 (4.5-10.0)
[2021-11-02 21:03] LABS: Alanine Aminotransferase 19 U/L (6-35); Albumin Level 4.5 g/dL (3.5-5.1); Alkaline Phosphatase 105 U/L (38-126); Anion Gap 9 mmol/L (8-16); Aspartate Amino Transferase 38 U/L (14-36); Bilirubin,Total 0.3 mg/dL (0.2-1.3); Blood Urea Nitrogen 37 mg/dL (7-17); Calcium 9.2 mg/dL (8.4-10.2); Carbon Dioxide 23 mmol/L (22-30); Chloride 106 mmol/L (98-107); Estimated Glomerular Filt Rate 24; Glucose 115 mg/dL (65-110); Potassium 4.8 mmol/L (3.4-5.0); Sodium 138 mmol/L (137-145)
[2021-11-02 21:13] LABS: Vitamin D 25 Hydroxy 65.3 ng/mL
[2021-11-03 13:24] LABS: Hemoglobin A1C 5.8 % (<5.7)
== END 2021-11-02 13:02 | disposition home or self-care (01) ==
LOC: ANHGOSHLAB 13:03
PROVIDERS: PCP Internal Medicine; Visit Provider Nurse Practitioner
DX: N18.30 Chronic kidney disease, stage 3 unspecified (principal); E55.9 Vitamin D deficiency, unspecified; E11.69 Type 2 diabetes mellitus with other specified complication
CPT/HCPCS: 36415; 80053; 82306; 83036; 85025

== ENCOUNTER 2021-11-10 11:46 | Outpatient (CLI) | payer MEDICARE, SELFPAY ==
[2021-11-10 18:57] LABS: Hematocrit 39.4 % (37.0-47.0); Hemoglobin 12.6 g/dL (12.0-15.0); Mean Corpuscular Hemoglobin 31.2 pg (26-34); Mean Corpuscular Volume 97.5 fl (80-100); Mean Platelet Volume 9.1 fl (7.4-10.4); Platelet Count Result 331 k/mm3 (150-375); Red Blood Count 4.04 M/mm3 (4.2-5.4); White Blood Count 9.9 K/mm3 (4.5-10.0)
[2021-11-10 20:14] LABS: Alanine Aminotransferase 28 U/L (6-35); Albumin Level 4.9 g/dL (3.5-5.1); Alkaline Phosphatase 118 U/L (38-126); Anion Gap 14 mmol/L (8-16); Aspartate Amino Transferase 51 U/L (14-36); Bilirubin,Total 0.3 mg/dL (0.2-1.3); Blood Urea Nitrogen 52 mg/dL (7-17); Calcium 9.1 mg/dL (8.4-10.2); Carbon Dioxide 18 mmol/L (22-30); Chloride 106 mmol/L (98-107); Estimated Glomerular Filt Rate 18; Glucose 127 mg/dL (65-110); Potassium 4.2 mmol/L (3.4-5.0); Sodium 138 mmol/L (137-145)
== END 2021-11-10 11:47 | disposition home or self-care (01) ==
PROVIDERS: PCP Internal Medicine; Visit Provider Nurse Practitioner
DX: R19.7 Diarrhea, unspecified (principal)
CPT/HCPCS: 36415; 80053; 85027

== ENCOUNTER 2021-11-10 22:43 | Emergency (ER) | payer MEDICARE, SELFPAY ==
[2021-11-10 22:52] VITALS: BP 150/75; PULSE 77; RESP 20; TEMP 36.5; O2SAT 100
[2021-11-10 23:26] LABS: Basophils Percent Auto 0.6 % (0.2-1.2); Eosinophils Absolute Auto 0.1 K/mm3 (0-0.3); Eosinophils Percent Auto 1.2 % (0-4.4); Hemoglobin 11.7 g/dL (12.0-15.0); Immature Granulocyte Absolute 0.03 K/mm3 (0.00-0.031); Immature Granulocyte Percent A 0.4 % (0-0.5); Lymphocytes Absolute Auto 2.23 K/mm3 (0.9-3.2); Lymphocytes Percent Auto 32.5 % (18.3-44.2); Mean Corpuscular HGB Conc 32.5 g/dl (32-36); Mean Corpuscular Volume 95.2 fl (80-100); Mean Platelet Volume 8.6 fl (7.4-10.4); Monocytes Absolute Auto 0.6 K/mm3 (0.1-0.6); Monocytes Percent Auto 8.6 % (2.6-8.5); Neutrophils Absolute Auto 3.9 K/mm3 (1.3-6.7); Neutrophils Percent Auto 56.7 % (45.5-73.1); Platelet Count Result 256 k/mm3 (150-375); Red Blood Count 3.78 M/mm3 (4.2-5.4); Red Cell Distribution Width 13.5 % (11.5-14.5); White Blood Count 6.9 K/mm3 (4.5-10.0)
--- NOTE | 2021-11-10 23:32 | ED.RECABL ---
HPI - Recheck/Abnormal Lab/Rx General Chief Complaint: Recheck/Abnormal Lab/Rx Stated Complaint: dehydration?? Time Seen by Provider: 11/10/21 23:09 Source: patient and family Mode of arrival: ambulatory History of Present Illness HPI narrative: 81-year-old female presents today she was instructed to come here from her primary care physician due to dehydration. Patient has had diarrhea over the last couple days had labs drawn today and her BUN and creatinine were noted to be elevated. Patient denies fever, abdominal pain, nausea, vomiting. Patient does have a history of C. difficile. Patient denies any recent antibiotic usage. Daughter is at bedside and helping with HPI. States patient has not been herself for the last couple days. States she is normally pretty sharp and up and about. Patient currently has been less active. Related Data Home Medications Medication Instructions Recorded Confirmed memantine 10 mg tablet 10 mg PO QPM 11/10/21 11/10/21 Allergies Allergy/AdvReac Type Severity Reaction Status Date / Time codeine Allergy Intermediate Rash Verified 11/10/21 10:59 Review of Systems Review of Systems: CONSTITUTIONAL: Fatigue. Denies fever, chills, or sweats. EYES: Denies visual changes, redness, or discharge. ENT: Denies rhinorrhea, congestion, sore throat, or otalgia. CARDIOVASCULAR: Denies chest pain, palpitations, or edema. RESPIRATORY: Denies cough or dyspnea. GASTROINTESTINAL: Diarrhea denies abdominal pain, nausea, vomiting. GENITOURINARY: Denies dysuria or hematuria. SKIN: Denies rash or itching. MUSCULOSKELETAL: Denies back pain, joint pain, or myalgia. NEUROLOGIC: Denies headache, numbness, dizziness, or weakness. PSYCHIATRIC: Denies anxiety or depression. [facility] Past Medical History Medical History Anemia Anxiety Basal cell carcinoma of face Breast cancer (1989) Status post lumpectomy. No chemo or radiation. Carotid stenosis (05/2018) 48% stenosis in the left ICA and 55% in the right ICA. Chronic kidney disease, stage 3 Chronic obstructive pulmonary disease Depression Diet-controlled diabetes mellitus Hemoglobin A1c was 5.9% on 01/22/2021. Former smoker Gastroesophageal reflux disease Hiatal hernia History of colon cancer Completely excised on right colectomy requiring no other treatment. Hyperlipidemia, unspecified Memory loss Restless legs Shoulder arthritis Spinal stenosis Suspected sleep apnea Patient never completed her sleep study. Syncope (06/12/18) Vitamin D deficiency Surgical History Surgical History History of cataract extraction with lens replacement History of cholecystectomy History of colonoscopy 2016 resulting in cauterization of a polyp and caused perforation requiring surgery and partial colon resection. History of hysterectomy History of lumpectomy of right breast History of partial surgical removal of colon Partial colectomy 2016 after polyp was removed and caused perforation of colon History of stress incontinence procedure using tension free vaginal tape Family History Family History Mother Cerebrovascular accident Hypertension Family history of transient ischemic attacks Sibling Family history of coronary artery disease Father Family history of transient ischemic attacks Patient's father is , Onset Age: 59 Family history of chronic obstructive pulmonary disease Colon cancer Other Family history of diabetes mellitus in first degree relative Social History Social History Social History: Healthcare power of business attorney: Coral Malik, daughter. Code status: Full code. Smoking packs per day: 2 Smoking cigarettes per day: 40.0 Years smoked: 48 Smoking pack-years: 96.00 Smoking status: Former smoker Gwen
[2021-11-10 23:34] LABS: Appearance Urine Clear (Clear); Bilirubin Urine Negative (Negative); Blood Urine Negative (Negative); Color Urine Yellow (Yellow); Glucose Urine UA Negative (Negative); Ketones Urine Negative (Negative); Leukocyte Esterase Ur 2+ LEU/UL (Negative); Nitrate Urine Negative (Negative); Protein Urine 1+ mg/dL (Negative); Specific Grav Ur 1.025 (1.001-1.035); Urobilinogen Urine 0.2 mg/dL (<2.0); pH Urine 5.5 (5.0-9.0)
[2021-11-10 23:36] LABS: Mucus Urine Rare /lpf; RBC Urine 0-2 /hpf (0-2); Squamous Epithelial Cell Urine Many /hpf (Few); WBC Urine 31-50 /hpf
[2021-11-10 23:37] LABS: Add Urine Microscopic? YES
[2021-11-10 23:40] LABS: Alanine Aminotransferase 23 U/L (6-35); Albumin Level 4.6 g/dL (3.5-5.1); Alkaline Phosphatase 119 U/L (38-126); Anion Gap 13 mmol/L (8-16); Aspartate Amino Transferase 40 U/L (14-36); Bilirubin,Total 0.4 mg/dL (0.2-1.3); Blood Urea Nitrogen 51 mg/dL (7-17); Calcium 8.9 mg/dL (8.4-10.2); Carbon Dioxide 16 mmol/L (22-30); Chloride 104 mmol/L (98-107); Estimated CRCL calculation 14 ml/min; Estimated Glomerular Filt Rate 18; Glucose 127 mg/dL (65-110); Potassium 3.7 mmol/L (3.4-5.0); Sodium 133 mmol/L (137-145)
[2021-11-10] MEDS: SODIUM CHLORIDE 0.9% IV 500 ML 999 ML IV CONT (23:53)
[2021-11-10 23:55] VITALS: O2SAT 100
[2021-11-11 00:06] VITALS: O2SAT 100
[2021-11-11 00:15] VITALS: O2SAT 100
[2021-11-11 00:17] VITALS: BP 115/64; PULSE 61; TEMP 36.6; O2SAT 100
--- NOTE | 2021-11-11 00:44 | PC.NURSE ---
Pt ambulated to bathroom, no distress. Pt reports she feels better
[2021-11-11] MEDS: CEPHALEXIN 250 MG CAPSULE PO (01:15)
[2021-11-11 01:18] VITALS: BP 112/68; PULSE 62; RESP 16; TEMP 36.4; O2SAT 96
== END 2021-11-11 01:20 | disposition home or self-care (01) ==
PROVIDERS: Emergency Medicine; Emergency Provider Nurse Practitioner Family; PCP Internal Medicine
DX: E86.0 Dehydration (principal); N39.0 Urinary tract infection, site not specified; D64.9 Anemia, unspecified; I65.23 Occlusion and stenosis of bilateral carotid arteries; E11.22 Type 2 diabetes mellitus with diabetic chronic kidney disease; N18.30 Chronic kidney disease, stage 3 unspecified; K21.9 Gastro-esophageal reflux disease without esophagitis; E78.5 Hyperlipidemia, unspecified; F41.9 Anxiety disorder, unspecified; F32.A Depression, unspecified; G25.81 Restless legs syndrome; M19.019 Primary osteoarthritis, unspecified shoulder; E55.9 Vitamin D deficiency, unspecified; Z85.3 Personal history of malignant neoplasm of breast; Z85.828 Personal history of other malignant neoplasm of skin; Z85.038 Personal history of other malignant neoplasm of large intestine; Z98.49 Cataract extraction status, unspecified eye; Z96.1 Presence of intraocular lens; Z90.49 Acquired absence of other specified parts of digestive tract; Z90.710 Acquired absence of both cervix and uterus; Z87.891 Personal history of nicotine dependence
CPT/HCPCS: 36415; 80053; 81001; 85025; 85027; 87086; 87088; 99283; A9270; J7040

== ENCOUNTER 2021-11-12 07:34 | Outpatient (CLI) | payer MEDICARE, SELFPAY ==
[2021-11-12 08:33] LABS: Anion Gap 12 mmol/L (8-16); Blood Urea Nitrogen 46 mg/dL (7-17); Calcium 8.9 mg/dL (8.4-10.2); Carbon Dioxide 18 mmol/L (22-30); Chloride 108 mmol/L (98-107); Estimated Glomerular Filt Rate 20; Glucose 112 mg/dL (65-110); Potassium 4.4 mmol/L (3.4-5.0); Sodium 138 mmol/L (137-145)
== END 2021-11-12 07:35 | disposition home or self-care (01) ==
LOC: ANHLAB 07:36
PROVIDERS: PCP Internal Medicine; Visit Provider Nurse Practitioner
DX: E86.0 Dehydration (principal); N17.9 Acute kidney failure, unspecified
CPT/HCPCS: 36415; 80048

== ENCOUNTER 2021-11-25 10:43 | Outpatient (CLI) | payer MEDICARE, SELFPAY ==
[2021-11-25 19:50] LABS: Anion Gap 9 mmol/L (8-16); Blood Urea Nitrogen 32 mg/dL (7-17); Calcium 9.4 mg/dL (8.4-10.2); Carbon Dioxide 27 mmol/L (22-30); Chloride 103 mmol/L (98-107); Estimated Glomerular Filt Rate 29; Glucose 114 mg/dL (65-110); Potassium 4.2 mmol/L (3.4-5.0); Sodium 139 mmol/L (137-145)
== END 2021-11-25 10:44 | disposition home or self-care (01) ==
LOC: ANHGOSHLAB 10:45
PROVIDERS: PCP Internal Medicine; Visit Provider Nurse Practitioner
DX: N17.9 Acute kidney failure, unspecified (principal)
CPT/HCPCS: 36415; 80048

== ENCOUNTER 2022-05-31 16:50 | Emergency (ER) | payer MEDICARE, SELFPAY ==
--- NOTE | ~2022-05-31 | XR_ITS ---
EXAMINATION: XR chest 2V Exam Date/Time: 05/31/2022 18:00 CDT HISTORY: confusion Comparison: 01/20/2021; CT abdomen and pelvis 06/09/2021. RESULT: Lines, tubes, and devices: Cholecystectomy clips. Lungs and pleura: Senescent changes. Biapical pleural scarring. Minimal bibasilar scar/atelectasis. Cardiomediastinal silhouette: Stable. Other: No acute osseous or upper abdominal finding. IMPRESSION: No acute cardiopulmonary process. Reviewed, dictated and finalized at location K.
[2022-05-31 17:31] VITALS: BP 178/81; PULSE 68; RESP 14; TEMP 36.7; O2SAT 100
--- NOTE | 2022-05-31 17:35 | ECG_ITS ---
Measurements Intervals [place] Rate: 72 P: 143 GA: 152 QRS: 105 QRSD: 94 T: 117 QT: 383 QTc: 422 Interpretive Statements ECTOPIC ATRIAL RHYTHM RIGHT AXIS DEVIATION BASELINE ARTIFACT- I, III, AVL, V1 ABNORMAL ECG COMPARED TO ECG 01/20/2021 12:35:03 ECTOPIC ATRIAL RHYTHM NOW PRESENT Electronically Signed On 05-31-2022 21:34:36 CDT by Andrea Jenkins D.O.
[2022-05-31 18:23] LABS: Basophils Absolute Auto 0.1 K/mm3 (0.0-0.1); Basophils Percent Auto 0.8 % (0.2-1.2); Eosinophils Percent Auto 0.3 % (0-4.4); Hematocrit 38.1 % (37.0-47.0); Hemoglobin 12.4 g/dL (12.0-15.0); Immature Granulocyte Absolute 0.03 K/mm3 (0.00-0.031); Immature Granulocyte Percent A 0.4 % (0-0.5); Lymphocytes Percent Auto 15.3 % (18.3-44.2); Mean Corpuscular HGB Conc 32.5 g/dl (32-36); Mean Corpuscular Volume 92.3 fl (80-100); Mean Platelet Volume 8.5 fl (7.4-10.4); Monocytes Absolute Auto 0.6 K/mm3 (0.1-0.6); Monocytes Percent Auto 7.3 % (2.6-8.5); Neutrophils Percent Auto 75.9 % (45.5-73.1); Platelet Count Result 261 k/mm3 (150-375); Red Blood Count 4.13 M/mm3 (4.2-5.4); Red Cell Distribution Width 13.9 % (11.5-14.5); White Blood Count 7.9 K/mm3 (4.5-10.0)
[2022-05-31 18:35] LABS: Alanine Aminotransferase 27 U/L (6-35); Albumin Level 4.6 g/dL (3.5-5.1); Alkaline Phosphatase 127 U/L (38-126); Anion Gap 10 mmol/L (8-16); Aspartate Amino Transferase 38 U/L (14-36); Bilirubin,Total 0.8 mg/dL (0.2-1.3); Blood Urea Nitrogen 36 mg/dL (7-17); Calcium 9.3 mg/dL (8.4-10.2); Carbon Dioxide 24 mmol/L (22-30); Chloride 104 mmol/L (98-107); Estimated CRCL calculation 19 ml/min; Estimated Glomerular Filt Rate 29; Glucose 126 mg/dL (65-110); Sodium 138 mmol/L (137-145)
[2022-05-31 18:43] VITALS: BP 200/97; PULSE 81; RESP 23; TEMP 36.6; O2SAT 100
[2022-05-31 18:46] LABS: Prothrombin Time 12.7 Seconds (11.1-14.7)
[2022-05-31 18:47] LABS: Partial Thromboplastin Time 24.1 SECONDS (22.3-36.8)
[2022-05-31 18:53] VITALS: PULSE 79
[2022-05-31 19:01] VITALS: BP 198/79; PULSE 75; RESP 16; O2SAT 99
--- NOTE | 2022-05-31 19:09 | PC.NURSE ---
MD aware of blood pressure. Tech to assist patient to BSC for urine sample.
--- NOTE | 2022-05-31 19:28 | PC.NURSE ---
pt. has not taken daily bp medications that were due to take this AM. ERP made aware pt. missed morning dose of losartan 50 MG tablet po. and amlodipine 5 mg tablet po. ERP made aware pt. bp 209/73. no futher orders at this time.
[2022-05-31 19:35] LABS: Appearance Urine Clear (Clear); Bacteria Urine Rare /hpf; Bilirubin Urine Negative (Negative); Blood Urine 1+ (Negative); Color Urine Yellow (Yellow); Glucose Urine UA Negative (Negative); Ketones Urine Trace mg/dL (Negative); Leukocyte Esterase Ur Trace LEU/UL (Negative); Need Manual Microscopic Reviewed; Nitrate Urine Negative (Negative); Protein Urine 3+ mg/dL (Negative); RBC Urine 0-2 /hpf (0-2); Squamous Epithelial Cell Urine Occasional /hpf (Few); Urobilinogen Urine 0.2 mg/dL (<2.0); pH Urine 5.5 (5.0-9.0)
[2022-05-31 19:37] LABS: Add Urine Microscopic? YES
[2022-05-31 19:42] VITALS: BP 209/73; PULSE 78; RESP 14; TEMP 36.7; O2SAT 100
--- NOTE | 2022-05-31 19:43 | ED.GENADULT ---
HPI - General Adult General Chief complaint: Altered Mental Status Stated complaint: Confussion Time Seen by Provider: 05/31/22 19:20 History of Present Illness HPI narrative: Patient 81-year-old female who presents to the emergency department with chief complaint of altered mental status. Per the patient's family the patient was more confused today did not take her blood pressure medicines and reports that she has had several bowel movements and has been standing at the front door saying that she wanted to go to the hospital. Upon arrival to the emergency department patient is actually returned to her baseline at this point and is acting her normal self. Related Data Home Medications Medication Instructions Recorded Confirmed memantine 10 mg tablet 10 mg PO QPM 11/10/21 04/12/22 Allergies Allergy/AdvReac Type Severity Reaction Status Date / Time codeine Allergy Intermediate Rash Verified 05/31/22 18:52 Review of Systems Review of Systems: A 10 system review of systems was completed on the patient and is negative except for what is stated in the HPI. Nursing and ancillary documentation was reviewed. [facility] Past Medical History Medical History Anemia Anxiety Basal cell carcinoma of face Breast cancer (1989) Status post lumpectomy. No chemo or radiation. Carotid stenosis (05/2018) 48% stenosis in the left ICA and 55% in the right ICA. Chronic kidney disease, stage 3 Chronic obstructive pulmonary disease Depression Diet-controlled diabetes mellitus Hemoglobin A1c was 5.9% on 01/22/2021. Former smoker Gastroesophageal reflux disease Hiatal hernia History of colon cancer Completely excised on right colectomy requiring no other treatment. Hyperlipidemia, unspecified Memory loss Restless legs Shoulder arthritis Spinal stenosis Suspected sleep apnea Patient never completed her sleep study. Syncope (06/12/18) Vitamin D deficiency Surgical History Surgical History History of cataract extraction with lens replacement History of cholecystectomy History of colonoscopy 2016 resulting in cauterization of a polyp and caused perforation requiring surgery and partial colon resection. History of hysterectomy History of lumpectomy of right breast History of partial surgical removal of colon Partial colectomy 2017 after polyp was removed and caused perforation of colon History of stress incontinence procedure using tension free vaginal tape Family History Family History Mother Cerebrovascular accident Hypertension Family history of transient ischemic attacks Sibling Family history of coronary artery disease Father Family history of transient ischemic attacks Patient's father is , Onset Age: 59 Family history of chronic obstructive pulmonary disease Colon cancer Other Family history of diabetes mellitus in first degree relative Social History Social History Social History: Healthcare power of associate attorney: Coral Malik, daughter. Code status: Full code. Smoking packs per day: 2 Smoking cigarettes per day: 40.0 Years smoked: 48 Smoking pack-years: 96.00 Smoking status: Former smoker Tobacco type: cigarettes Second hand tobacco smoke exposure: No Alcohol intake: never Substance use: never Lack of Transportation: No Lack of Food: Never True Current Housing: I Have Housing Concerned About Future Housing: No Difficulty Paying Gas/Electric Bills: No Difficulty Paying for Meds: No Currently Unemployed: No Education: High School Diploma/GED Living arrangements: alone Additional living arrangements comments: The patient lives in her own home in [place]. She has 3 daughters. Occupation/Education: retired Add
--- NOTE | 2022-05-31 19:50 | PC.NURSE ---
pt. took both home morning medications that pt. missed.
[2022-05-31] MEDS: CEPHALEXIN 500 MG CAPSULE PO (20:46)
== END 2022-05-31 20:46 | disposition home or self-care (01) ==
PROVIDERS: Emergency Medicine; Emergency Provider Emergency Medicine; PCP Internal Medicine
DX: N39.0 Urinary tract infection, site not specified (principal); R41.82 Altered mental status, unspecified; I65.23 Occlusion and stenosis of bilateral carotid arteries; E11.22 Type 2 diabetes mellitus with diabetic chronic kidney disease; N18.30 Chronic kidney disease, stage 3 unspecified; J44.9 Chronic obstructive pulmonary disease, unspecified; E78.5 Hyperlipidemia, unspecified; G25.81 Restless legs syndrome; E55.9 Vitamin D deficiency, unspecified; M19.019 Primary osteoarthritis, unspecified shoulder; K21.9 Gastro-esophageal reflux disease without esophagitis; Z98.49 Cataract extraction status, unspecified eye; Z96.1 Presence of intraocular lens; Z85.038 Personal history of other malignant neoplasm of large intestine; Z85.828 Personal history of other malignant neoplasm of skin; Z86.2 Personal history of diseases of the blood and blood-forming organs and certain disorders involving the immune mechanism; Z87.891 Personal history of nicotine dependence; Z90.49 Acquired absence of other specified parts of digestive tract; Z90.710 Acquired absence of both cervix and uterus
CPT/HCPCS: 36415; 71046; 80053; 81001; 85025; 85610; 85730; 87086; 87088; 93005; 99283; A9270

== ENCOUNTER 2022-07-24 12:53 | Observation (INO) | payer MEDICARE, SELFPAY ==
--- NOTE | ~2022-07-24 | MR_ITS ---
EXAMINATION: MR brain/brain stem wo/w con DATE: 07/25/2022 07:12 INDICATION: Altered mental status. TECHNIQUE: Magnetic resonance imaging (MRI) of the brain and brainstem was performed without and with 10 mL MultiHance intravenous contrast. COMPARISON: Head CT 07/24/2022, brain MRI 10/08/2020 FINDINGS: There are a few scattered foci of old microhemorrhage in the cerebrum. There are scattered areas of nonspecific increased T2-weighted signal intensity in the cerebral white matter and ashley. Th ere is no acute ischemic infarct or abnormal mass lesion. The ventricles are normal in size. There is near complete opacification of right maxillary sinus, which is small, consistent with chronic sinusi tis. There is mild mucosal thickening in the ethmoid sinuses. There are likely changes of ocular lens replacement surgeries. The mastoid air cells are normal. IMPRESSION: 1. Extensive cerebral white matter disease and pontine disease and scattered foci of old microhemorrh age in the brain, worsened from 10/08/2020, consistent with chronic hypertensive encephalopathy. Reviewed, dictated and finalized at location A. IMPRESSION: 1. Extensive cerebral white matter disease and pontine disease and scattered fo ci of old microhemorrhage in the brain, worsened from 10/08/2020, consistent wit h chronic hypertensive encephalopathy.
--- NOTE | ~2022-07-24 | US_ITS ---
EXAMINATION: US carotid duplex BI DATE: 07/25/2022 09:42 INDICATION: Carotid bruit TECHNIQUE: Grayscale, color Doppler, and pulsed Doppler images of the cervical carotid arteries were obtained. The degree of vessel stenosis is placed in one of the following categories: normal, <50%, 5 0-69%, >=70% but less than near-occlusion, near-occlusion, or total occlusion. Note that percent sten osis relative to normal distal artery lumen diameter is indirectly measured from velocity measurement s as described by Chris, et al. Radiology 2003; 229:340-346. Notes: Normal: Peak systolic velocity <125 centimeters/sec and no plaque <50%. Peak systolic velocity <125 ( EDV <40; ICA/CCA PSV ratio <2.0; used these factors only a tandem lesions or low cardiac output or co ntralateral disease) 50-69 %: PSV 125-230 (EDV 40-100; ratio 2-4) >= 70% but less than near occlusion: PSV greater than 230 (EDV > 100; ratio> 4.0) Near Occlusion: PSV that is variable; markedly narrowed lumen Occlusion: Absent flow on color/spectral Doppler and no lumen on tobias scale. COMPARISON: Ultrasound dated 06/13/2018 FINDINGS: RIGHT: The right common carotid artery (CCA) peak systolic velocity (PSV) is 60 cm/s. The right internal car otid artery (ICA) PSV is 135 cm/s. The right ICA end-diastolic velocity (EDV) is 31 cm/s. The right I CA/CCA PSV ratio is 2.2. The external carotid artery (ECA) PSV is 148 cm/s. There is antegrade flow i n the right vertebral artery. LEFT: The left CCA PSV is 77 cm/s. The left ICA PSV is 272 cm/s. The left ICA EDV is 51 cm/s. The left ICA/ CCA PSV ratio is 3.6. The ECA PSV is 108 cm/s. There is antegrade flow in the left vertebral artery. IMPRESSION: 1. 50-69% stenosis in the right internal carotid artery by sonographic criteria. 2. Greater than or equal to 70% stenosis in the left internal carotid artery by sonographic criteria. 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 IMPRESSION: 1. 50-69% stenosis in the right internal carotid artery by sonographic criteria . 2. Greater than or equal to 70% stenosis in the left internal carotid artery by sonographic criteria.
--- NOTE | ~2022-07-24 | CT_ITS ---
EXAMINATION: CT abdomen pelvis wo con DATE: 07/24/2022 14:47 INDICATION: Low abdominal pain. TECHNIQUE: Computed tomography (CT) of the abdomen and pelvis was performed without intravenous contr ast. Automated exposure control and iterative reconstruction technique were employed. The dose-length product was 347.17 mGy-cm. COMPARISON: CT abdomen and pelvis 06/09/2021 FINDINGS: The visualized portions of the lung bases demonstrate mild atelectasis. There is peripheral scarring in anterior right lung, which may be radiation fibrosis. No pleural effusion. The heart siz e is normal. There are coronary artery calcifications. No pericardial effusion. There is a small slid ing hiatal hernia. The liver is normal. There are changes of cholecystectomy. The spleen, pancreas, a nd adrenal glands are normal. There is cortical thinning of the kidneys. There are parenchymal calcif ications in left kidney. There is no urolithiasis. The bladder is markedly distended. There is divert iculosis of the colon without evidence of diverticulitis. There are changes of right hemicolectomy. T here are no pathologically enlarged lymph nodes. There is no free intraperitoneal fluid. There is sev ere lumbar spondylosis. IMPRESSION: 1. Markedly distended bladder. 2. Small sliding hiatal hernia. Reviewed, dictated and finalized at location A.
--- NOTE | ~2022-07-24 | CT_ITS ---
EXAMINATION: CT brain wo con DATE: 07/24/2022 14:47 INDICATION: Altered mental status. TECHNIQUE: Computed tomography (CT) of the head was performed without intravenous contrast. The mA wa s adjusted according to patient size. Iterative reconstruction technique was employed. The dose-lengt h product was 605.33 mGy-cm. COMPARISON: Head CT 06/12/2018 FINDINGS: There are scattered areas of low attenuation in the cerebral white matter. There is no intr acranial hemorrhage, acute infarction, or abnormal intracranial mass lesion. The ventricles are josh l in size. There are likely changes of ocular lens replacement surgeries. There is mucosal thickening in the paranasal sinuses. There is thickening and sclerosis of the claros of right maxillary sinus, c onsistent with chronic sinusitis. The mastoid air cells are normal. IMPRESSION: 1. Worsened moderate nonspecific cerebral white matter disease, which likely represents chronic small vessel ischemic disease. 2. Chronic sinusitis. Reviewed, dictated and finalized at location A. IMPRESSION: 1. Worsened moderate nonspecific cerebral white matter disease, which likely re presents chronic small vessel ischemic disease. 2. Chronic sinusitis.
[2022-07-24 12:53] VITALS: BP 198/84; PULSE 63; RESP 20; TEMP 36.8; O2SAT 100
--- NOTE | 2022-07-24 13:02 | ECG_ITS ---
Measurements Intervals [place] Rate: 63 P: 54 IA: 157 QRS: 36 QRSD: 94 T: 70 QT: 412 QTc: 424 Interpretive Statements SINUS RHYTHM ATRIAL PREMATURE COMPLEX ST ABNORMALITY IN ANTEROLATERAL LEADS- CONSIDER ISCHEMIA ABNORMAL ECG COMPARED TO ECG 05/31/2022 18:06:32 [address] NOW PRESENT [address] DEVIATION NOW PRESENT Electronically Signed On 07-24-2022 21:19:15 CDT by Andrea Jenkins D.O.
--- NOTE | 2022-07-24 13:04 | ED.ABDPAIN ---
HPI - Abdominal Pain General Chief Complaint: Abdominal Pain Stated Complaint: abd pain Time Seen by Provider: 07/24/22 12:54 History of Present Illness HPI narrative: 82-year-old female presents the emergency department for evaluation of altered mental status. Family states they went to check on the patient and she had minimal responsiveness and she was crying of pain. Patient has been hearing and not have her hearing aids in place. Patient does report she is having some abdominal pain. Patient has history of chronic kidney disease, dementia and frequent urinary tract infections. Family arrived and states the patient is currently at her normal baseline. Related Data Home Medications Medication Instructions Recorded Confirmed memantine 10 mg tablet 10 mg PO QPM 11/10/21 07/24/22 amlodipine 5 mg tablet 5 mg PO DAILY 07/24/22 07/24/22 fluoxetine 20 mg capsule 20 mg PO DAILY 07/24/22 07/24/22 Allergies Allergy/AdvReac Type Severity Reaction Status Date / Time codeine Allergy Intermediate Rash Verified 07/24/22 13:12 Review of Systems Review of Systems: All systems reviewed & are unremarkable except as noted in HPI and below PMFSH Past Medical History Medical History Anemia Anxiety Basal cell carcinoma of face Breast cancer (1989) Status post lumpectomy. No chemo or radiation. Carotid stenosis (05/2018) 48% stenosis in the left ICA and 55% in the right ICA. Chronic kidney disease, stage 3 Chronic obstructive pulmonary disease Depression Diet-controlled diabetes mellitus Hemoglobin A1c was 5.9% on 01/22/2021. Former smoker Gastroesophageal reflux disease Hiatal hernia History of colon cancer Completely excised on right colectomy requiring no other treatment. Hyperlipidemia, unspecified Memory loss Restless legs Shoulder arthritis Spinal stenosis Suspected sleep apnea Patient never completed her sleep study. Syncope (06/12/18) Vitamin D deficiency Surgical History Surgical History History of cataract extraction with lens replacement History of cholecystectomy History of colonoscopy 2016 resulting in cauterization of a polyp and caused perforation requiring surgery and partial colon resection. History of hysterectomy History of lumpectomy of right breast History of partial surgical removal of colon Partial colectomy 2016 after polyp was removed and caused perforation of colon History of stress incontinence procedure using tension free vaginal tape Family History Family History Mother Cerebrovascular accident Hypertension Family history of transient ischemic attacks Sibling Family history of coronary artery disease Father Family history of transient ischemic attacks Patient's father is , Onset Age: 59 Family history of chronic obstructive pulmonary disease Colon cancer Other Family history of diabetes mellitus in first degree relative Social History Social History Social History: Healthcare power of deputy attorney general: Coral Malik, daughter. Code status: Full code. Smoking packs per day: 2 Smoking cigarettes per day: 40.0 Years smoked: 48 Smoking pack-years: 96.00 Smoking status: Former smoker Tobacco type: cigarettes Second hand tobacco smoke exposure: No Alcohol intake: never Substance use: never Lack of Transportation: No Lack of Food: Never True Current Housing: I Have Housing Concerned About Future Housing: No Difficulty Paying Gas/Electric Bills: No Difficulty Paying for Meds: No Currently Unemployed: No Education: High School Diploma/GED Living arrangements: alone Additional living arrangements comments: The patient lives in her own home in [place]. She has 3 daughters. Occupation
[2022-07-24 13:21] LABS: Basophils Absolute Auto 0.1 K/mm3 (0.0-0.1); Eosinophils Percent Auto 0.8 % (0-4.4); Hematocrit 33.6 % (37.0-47.0); Immature Granulocyte Absolute 0.01 K/mm3 (0.00-0.031); Immature Granulocyte Percent A 0.2 % (0-0.5); Lymphocytes Percent Auto 30.5 % (18.3-44.2); Mean Corpuscular HGB Conc 32.7 g/dl (32-36); Mean Corpuscular Hemoglobin 30.7 pg (26-34); Mean Corpuscular Volume 93.9 fl (80-100); Mean Platelet Volume 8.8 fl (7.4-10.4); Monocytes Absolute Auto 0.5 K/mm3 (0.1-0.6); Monocytes Percent Auto 9.5 % (2.6-8.5); Neutrophils Absolute Auto 3.1 K/mm3 (1.3-6.7); Platelet Count Result 229 k/mm3 (150-375); Red Blood Count 3.58 M/mm3 (4.2-5.4); Red Cell Distribution Width 13.7 % (11.5-14.5); White Blood Count 5.3 K/mm3 (4.5-10.0)
[2022-07-24 13:31] LABS: Prothrombin Time 13.7 Seconds (11.1-14.7)
[2022-07-24 13:32] LABS: Partial Thromboplastin Time 23.6 SECONDS (22.3-36.8)
[2022-07-24 13:36] LABS: Alanine Aminotransferase 24 U/L (6-35); Alkaline Phosphatase 110 U/L (38-126); Anion Gap 8 mmol/L (8-16); Aspartate Amino Transferase 33 U/L (14-36); Bilirubin,Total 0.6 mg/dL (0.2-1.3); Blood Urea Nitrogen 34 mg/dL (7-17); Calcium 8.9 mg/dL (8.4-10.2); Carbon Dioxide 22 mmol/L (22-30); Chloride 108 mmol/L (98-107); Estimated CRCL calculation 18 ml/min; Estimated Glomerular Filt Rate 25; Glucose 104 mg/dL (65-110); Lactic Acid Reflex 2.1 mmol/L (0.7-2.0); Potassium 3.8 mmol/L (3.4-5.0); Sodium 138 mmol/L (137-145)
[2022-07-24 14:50] LABS: Add Urine Microscopic? YES; Appearance Urine Clear (Clear); Bacteria Urine None Seen /hpf; Bilirubin Urine Negative (Negative); Blood Urine 1+ (Negative); Color Urine Yellow (Yellow); Glucose Urine UA Negative (Negative); Ketones Urine Negative (Negative); Leukocyte Esterase Ur Trace LEU/UL (Negative); Need Manual Microscopic Reviewed; Nitrate Urine Negative (Negative); Non Pathogenic Casts 0-2; Protein Urine 2+ mg/dL (Negative); Specific Grav Ur 1.014 (1.001-1.035); Squamous Epithelial Cell Urine None seen /hpf (Few); Urobilinogen Urine 0.2 mg/dL (<2.0); WBC Urine 0-5 /hpf; pH Urine 6.5 (5.0-9.0)
[2022-07-24 16:19] LABS: Reflex Lactic Acid Yes or No Add Lactic
[2022-07-24 16:48] LABS: Lactic Acid 2.6 mmol/L (0.7-2.0)
[2022-07-24] MEDS: SODIUM CHLORIDE 0.9% IV 1,000 ML 500 ML IV CONT (17:50)
[2022-07-24 18:43] VITALS: BMI 21.9
[2022-07-24 18:50] VITALS: BP 210/104; PULSE 78; RESP 22; TEMP 37.3; O2SAT 100
--- NOTE | 2022-07-24 19:56 | ADMGEN ---
This patient, Nannette Nix, was admitted to 3 [facility] Surg Room 317-01. Patient/family oriented to hospital policies and general routines including ID bracelet, bed and alarms, visiting hours, pain management, procedures, bathroom and other care routines, personal items, smoking policy, room service/diet, and visiting hours. Information on how to activate the Rapid Response Team has been discussed. Patient/Family are encouraged to report perceived risks to care and to ask questions if they do not understand what they are told or what they should do.
[2022-07-24] MEDS: amLODIPine BESYLATE 5 MG TABLET 10 MG PO (19:59)
--- NOTE | 2022-07-24 21:48 | PM.IMHP ---
H&P: HPI History of Present Illness Date/Time: 07/24/22 18:30 Chief Complaint: Abdominal pain, unresponsive episode. Narrative: This is an 82-year-old female with dementia, hypertension, hyperlipidemia, diet-controlled diabetes, chronic kidney disease, GERD, and history of colon cancer presented to the emergency department via EMS from home for evaluation of abdominal pain and an unresponsive episode. She suffers from a pretty significant short-term memory loss and she is not an accurate historian and her daughters help provide quite a bit of the following information, with the patient's permission. The patient lives in her own home but her daughters have houses on the same property so they see her multiple times a day. She is quite active and spent a lot of the day yesterday out in her garden. She can still prepare meals and she reports that she takes her own medications however 1 of her daughters separates them for her and she does not believe that she is taking them appropriately. In any event she has been in her usual state of health however this morning she slept a lot later than usual and 1 of her daughters went to check on her around noon time. She was still in bed and she was difficult to arouse, at 1 point in time she briefly opened her eyes but they closed quickly and according to the daughter she started to moan and her eyes were fluttering for several minutes. She called 911 and the police department was 1st on scene. At that time she was more alert, was speaking, and was attempting to follow commands. She started to complain of vague lower abdominal pain and she was brought in for evaluation. In the ED: She was afebrile on arrival. Blood pressures have been consistently elevated in the 180s to 190s systolic (she did not take her medications this morning). Pertinent labs include a WBC count of 5.3, hemoglobin 11.0, sodium 138, potassium 3.8, BUN 34, creatinine 1.90, lactic acid 2.1. Brain CT showed worsened moderate nonspecific cerebral white matter disease which likely represents chronic small-vessel ischemic disease and chronic sinusitis. CT of the abdomen and pelvis showed a markedly distended bladder in a small sliding hiatal hernia. UA obtained via straight catheterization was positive for 2+ protein, 1+ blood, trace leukocyte esterase, 6 to 10 RBC, 0 to 5 WBC. At the time my evaluation she seems to have occasional issues with word-finding which daughter states is normal for her. She is pleasant and cooperative and follows commands. Approximately 15 minutes prior to my arrival to the room however she became extremely agitated, hypertensive, and daughter's report that her face became red and flushed. She has had several such episodes today which is are very unusual for her. She is not having any abdominal pain at this time and she has no significant complaints. She denies headache, chest pain, shortness a breath, abdominal pain, nausea, and vomiting. She also denies diarrhea and dysuria. Family members deny that she has had any recent falls or illnesses. Review of Systems Review of Systems: Unable to be obtained accurately given her severe short-term memory loss. [facility] Past Medical History Medical History (Updated 07/24/22 @ 22:12 by Bianca Cruz PA-C) Anemia Anxiety Basal cell carcinoma of face Breast cancer (1989) Status post lumpectomy. No chemo or radiation. C. difficile colitis Carotid stenosis (05/2018) 48% stenosis in the left ICA and 55% in the right ICA. Chronic kidney disease, stage 3 Chronic obstructive pulmonary disease Depression Diet-controlled diabetes mellitus Hemoglobin A1c was 5.9% on 01/22/2021. Former smoker Gastroesophageal reflux disease Hiatal hernia History of colon cancer Completely excised on right colectomy requiring no other treatment. Hyperlipidemia, unspecified Restless legs Shoulder arthritis Spinal stenosis Suspected sleep apnea Patient never completed her sleep study. Syncope (
[2022-07-24 22:00] VITALS: BP 189/76; PULSE 74; RESP 18; TEMP 36.5; O2SAT 100
[2022-07-25] VITALS (10 sets, daily range): BP systolic 109–131; BP diastolic 55–68; PULSE 70–89; RESP 16–22; TEMP 36.4–36.6; O2SAT 97–100
[2022-07-25 06:29] LABS: Hematocrit 31.8 % (37.0-47.0); Hemoglobin 10.5 g/dL (12.0-15.0); Mean Corpuscular Hemoglobin 30.4 pg (26-34); Mean Corpuscular Volume 92.2 fl (80-100); Mean Platelet Volume 8.8 fl (7.4-10.4); Platelet Count Result 208 k/mm3 (150-375); Red Blood Count 3.45 M/mm3 (4.2-5.4); Red Cell Distribution Width 13.5 % (11.5-14.5); White Blood Count 5.6 K/mm3 (4.5-10.0)
[2022-07-25 06:32] LABS: Lactic Acid Reflex 1.2 mmol/L (0.7-2.0)
[2022-07-25 06:35] LABS: Ammonia < 9 umol/L (9-30)
[2022-07-25 06:36] LABS: Anion Gap 6 mmol/L (8-16); Blood Urea Nitrogen 32 mg/dL (7-17); CRP < 0.5 mg/dL (<1.0); Calcium 8.4 mg/dL (8.4-10.2); Carbon Dioxide 25 mmol/L (22-30); Chloride 107 mmol/L (98-107); Estimated CRCL calculation 17 ml/min; Estimated Glomerular Filt Rate 24; Glucose 131 mg/dL (65-110); Magnesium 1.5 mg/dL (1.6-2.3); Potassium 3.4 mmol/L (3.4-5.0); Sodium 138 mmol/L (137-145)
--- NOTE | 2022-07-25 10:19 | PM.IMPN ---
Progress Note: A&P Assessment and Plan (1) Altered mental status: Code(s): R41.82 - Altered mental status, unspecified Status: Acute Assessment and Plan: The patient was reportedly difficult to arouse this morning. She may very well have been sleeping soundly and due to her hearing loss may not have heard her daughters trying to get her attention. Seizure is a consideration given reports of moaning noises associated with fluttering of the eyes but daughters deny overt seizure-like activity, there was no tongue bite, and she was not incontinent. TIA and CVA are also considerations given word-finding difficulties and and change in behavior. Blood pressures have been markedly elevated which could be causing confusion as well. Her bladder was markedly distended on CT and urinary retention could be causing her altered mental status as well. This may simply be progression of her dementia. She will be admitted to telemetry overnight for close monitoring and frequent neurologic checks. Check TSH, ammonia, and B12. Brain MRI and EEG may be prudent. Neurology consulted. (2) Urinary retention: Code(s): R33.9 - Retention of urine, unspecified Status: Acute Assessment and Plan: She was straight cathed in the ED. it was not documented how much urine was yielded. Monitor bladder scan q.6 hours. (3) Uncontrolled hypertension: Code(s): I10 - Essential (primary) hypertension Status: Acute Assessment and Plan: Blood pressures have been running in the 180s to 190s systolic. One of her daughters does separate them out in pill boxes though a daughters are not certain she is taking them as directed. Resume antihypertensives and continue to monitor blood pressures closely. (4) Elevated lactic acid level: Code(s): R79.89 - Other specified abnormal findings of blood chemistry Status: Acute Assessment and Plan: Lactic acid is mildly elevated, may very well be due to lab draw technique. There is no history or findings to suggest active infection. (5) Chronic kidney disease, stage 3: Qualifiers: Chronic kidney disease stage 3 subtype: stage 3b (GFR 30-44) Qualified Code(s): N18.32 - Chronic kidney disease, stage 3b Code(s): N18.30 - Chronic kidney disease, stage 3 unspecified Status: Acute Assessment and Plan: Creatinine is stable on review of previous labs. (6) Dementia: Qualifiers: Dementia behavioral or psychological symptom: with agitation Dementia severity: unspecified severity Dementia type: unspecified type Qualified Code(s): F03.911 - Unspecified dementia, unspecified severity, with agitation Code(s): F03.90 - Unspecified dementia, unspecified severity, without behavioral disturbance, psychotic disturbance, mood disturbance, and anxiety Status: Acute Assessment and Plan: Continue memantine. Medical decision making narrative ? History obtained from: Patient. ? History from independent sources: Patient's daughters, with her permission. ? External chart review: Previous visits reviewed. ? New problems addressed: Altered mental status, urinary retention. ? Chronic illnesses addressed: Dementia, chronic kidney disease. ? Independent interpretation of studies: Labs, imaging, EKG, and all reports were personally reviewed. ? Diagnostic tests considered but not ordered: None. ? Shared decision making: Findings were reviewed and discussed with the patient, including plans for further workup and treatment options. Questions solicited and answered to satisfaction. Patient agrees with current plan of care. Subjective Date/time seen: 07/25/22 10:19 Interval history: No new complaints Exam Narrative: General:?Thin, frail elderly female sitting up in bed. Weight: 57.8 kg. BMI: 21.9. HEENT:?Hard of hearing, wearing hearing aid. PERRL, EOMI.? Sclerae anicteric. Tacky mucous membranes. Neck:??Supple. No n
[2022-07-25] MEDS: PANTOPRAZOLE 40 MG TABLET PO (10:47)
[2022-07-25] MEDS: FLUoxetine HCL 20 MG CAPSULE PO (10:47)
[2022-07-25] MEDS: amLODIPine BESYLATE 5 MG TABLET PO (10:47)
[2022-07-25] MEDS: LOSARTAN POTASSIUM 50 MG TABLET PO (10:47)
--- NOTE | 2022-07-25 14:44 | WPDNEUROLOGY ---
Neurology EEG Report General Information Date of Study: 07/25/22 TEST Routine EEG DIAGNOSIS Unresponsive episode with eye fluttering; seizure-like activity CONDITION OF RECORDING Awake and drowsy; eye fluttering artifact noted throughout the tracing. EEG NUMBER [id number] CLINICAL HISTORY Patient was found in bed, difficult to arouse. Per daughter, she was moaning and had eye fluttering for several minutes. EEG DESCRIPTION During the awake state with eyes closed the background consists of 10-11 Hz posterior dominant rhythm which attenuates appropriately with eye opening. The recording is continuous. There is a well developed anterior-posterior gradient. No significant asymmetries of background activities are noted. With drowsiness there is waxing and waning of the dominant rhythm with eventual replacement by a mixture of beta, alpha, and theta activity. Patient did not enter stage II sleep. There are no epileptiform discharges or seizures during this recording. Hyperventilation and photic stimulation were not performed. IMPRESSION This is a normal routine EEG recorded in awake and drowsy states. There are no electrographic seizures identified, nor are there any epileptiform discharges. Please note that a normal EEG cannot exclude a seizure disorder. Clinical correlation is recommended.
[2022-07-25] MEDS: MEMANTINE 10 MG TABLET PO (18:52)
--- NOTE | 2022-07-25 20:28 | PC.NURSE ---
Pt went for MRI this morning, carotid ultrasound, and had EEG done today. Pt tolerated well. Pt has had family at bedside throughout the day. Pt has been compliant with care. Pt is extremely hard of hearing. Pt has been monitored for any changes in status throughout the shift.
--- NOTE | 2022-07-25 20:38 | PC.NURSE ---
Pt does NOT have hearing aids at bedside.
[2022-07-26] VITALS: PULSE 64
[2022-07-26 04:00] VITALS: PULSE 57
[2022-07-26 05:27] VITALS: BP 149/68; PULSE 58; RESP 18; TEMP 36.1; O2SAT 99
--- NOTE | 2022-07-26 08:00 | ECHO_ITS ---
Patient Info Name: Nannette Nix Age: 82 years : 1940 Gender: Female Ht: 64 in Wt: 127 lbs BSA: 1.62 m2 HR: 75 bpm BP: 149 / 68 mmHg Heart Rhythm: Sinus Rhythm Technical Quality: Fair Exam Date: 07/26/2022 7:41 AM Exam Location: [facility] Card Pulmonary Patient Status: Inpatient Admit Date: 07/24/2022 Staff Ordering Physician: Bianca Cruz PA-C Coat Padder: Frannie Spears RDCS Attending Provider: Saeid Hawkins MD Referring Physician: Nancy NORIEGA; Exam Type: CA echo doppler color flow Study Info Indications - HTN UNCONTROLLED Complete two-dimensional, color flow and Doppler transthoracic echocardiogram is performed. Summary 1. Complete two-dimensional, color flow and Doppler transthoracic echocardiogram is performed. 2. Normal left ventricular size with mild concentric hypertrophy and sigmoid septum of the elderly. Good systolic function of all segments with an ejection fraction of 72%. Grade 2 diastolic dysfunction is present. 3. No significant valve regurgitation or stenosis. 4. Normal estimated pulmonary pressure. 5. Normal sinus rhythm with sinus bradycardia at times. Left Ventricle Left ventricular chamber dimension is normal. Left ventricular systolic function is normal, estimated at 65-70%. There is mildly increased left ventricular wall thickness. Left ventricular septal wall motion is normal. The left ventricular diastolic function is grade II diastolic dysfunction. Right Ventricle Right ventricular chamber dimension is normal. Right ventricular systolic function is normal. Left Atria Left atrial chamber dimension is mildly enlarged. Right Atria Right atrial chamber dimension is normal. Aortic Valve The aortic valve is trileaflet. There is no aortic valve sclerosis. There is no aortic valve stenosis. There is no aortic valve regurgitation. Pulmonic Valve The pulmonic valve is normal. There is no pulmonic valve stenosis. There is trace pulmonic regurgitation. Mitral Valve The mitral valve has normal leaflets. There is no mitral valve stenosis. There is trace mitral valve regurgitation. Tricuspid Valve The tricuspid valve leaflets are normal. There is no significant tricuspid valve stenosis. There is trace tricuspid valve regurgitation. No pulmonary hypertension, estimated pulmonary arterial systolic pressure is 23 mmHg. Pericardium/Pleural The pericardium appears normal. There is no pericardial effusion. Inferior Vena Cava Normal inferior vena cava with >50% collapse upon inspiration consistent with Empty right atrial pressure, 10 mmHg. Aorta The aortic root size at the sinus of Valsalva is normal. The prox ascending aorta size is normal. Left Ventricular Outflow Tract Name Value Normal LVOT 2D LVOT Diameter 1.8 cm LVOT Doppler LVOT Peak Gradient 4 mmHg LVOT Mean Gradient 2 mmHg LVOT VTI 22 cm LVOT VTI/AV VTI Ratio 0.6 LVOT Stroke Volume 56 ml LVOT CO 3.4 l/min LVOT CI 2.1 l/min/m2 Pulmonic Valve
[2022-07-26] MEDS: PANTOPRAZOLE 40 MG TABLET PO (10:02)
[2022-07-26] MEDS: LOSARTAN POTASSIUM 50 MG TABLET PO (10:02)
[2022-07-26] MEDS: amLODIPine BESYLATE 5 MG TABLET PO (10:03)
[2022-07-26] MEDS: FLUoxetine HCL 20 MG CAPSULE PO (10:03)
--- NOTE | 2022-07-26 11:34 | PM.DS ---
DS: Admitting Diagnosis Discharge Date July 26, 2022 Admitting Diagnosis agitation, altered mental DS: Discharge Diagnosis Discharge Diagnosis (1) Altered mental status: Code(s): R41.82 - Altered mental status, unspecified Status: Acute Assessment and Plan: The patient was reportedly difficult to arouse this morning. She may very well have been sleeping soundly and due to her hearing loss may not have heard her daughters trying to get her attention. Seizure is a consideration given reports of moaning noises associated with fluttering of the eyes but daughters deny overt seizure-like activity, there was no tongue bite, and she was not incontinent. TIA and CVA are also considerations given word-finding difficulties and and change in behavior. Blood pressures have been markedly elevated which could be causing confusion as well. Her bladder was markedly distended on CT and urinary retention could be causing her altered mental status as well. This may simply be progression of her dementia. She will be admitted to telemetry overnight for close monitoring and frequent neurologic checks. Check TSH, ammonia, and B12. Brain MRI and EEG may be prudent. Neurology consulted. (2) Urinary retention: Code(s): R33.9 - Retention of urine, unspecified Status: Acute Assessment and Plan: She was straight cathed in the ED. it was not documented how much urine was yielded. Monitor bladder scan q.6 hours. (3) Uncontrolled hypertension: Code(s): I10 - Essential (primary) hypertension Status: Acute Assessment and Plan: Blood pressures have been running in the 180s to 190s systolic. One of her daughters does separate them out in pill boxes though a daughters are not certain she is taking them as directed. Resume antihypertensives and continue to monitor blood pressures closely. (4) Elevated lactic acid level: Code(s): R79.89 - Other specified abnormal findings of blood chemistry Status: Acute Assessment and Plan: Lactic acid is mildly elevated, may very well be due to lab draw technique. There is no history or findings to suggest active infection. (5) Chronic kidney disease, stage 3: Qualifiers: Chronic kidney disease stage 3 subtype: stage 3b (GFR 30-44) Qualified Code(s): N18.32 - Chronic kidney disease, stage 3b Code(s): N18.30 - Chronic kidney disease, stage 3 unspecified Status: Acute Assessment and Plan: Creatinine is stable on review of previous labs. (6) Dementia: Qualifiers: Dementia behavioral or psychological symptom: with agitation Dementia severity: unspecified severity Dementia type: unspecified type Qualified Code(s): F03.911 - Unspecified dementia, unspecified severity, with agitation Code(s): F03.90 - Unspecified dementia, unspecified severity, without behavioral disturbance, psychotic disturbance, mood disturbance, and anxiety Status: Acute Assessment and Plan: Continue memantine. Medical decision making narrative ? History obtained from: Patient. ? History from independent sources: Patient's daughters, with her permission. ? External chart review: Previous visits reviewed. ? New problems addressed: Altered mental status, urinary retention. ? Chronic illnesses addressed: Dementia, chronic kidney disease. ? Independent interpretation of studies: Labs, imaging, EKG, and all reports were personally reviewed. ? Diagnostic tests considered but not ordered: None. ? Shared decision making: Findings were reviewed and discussed with the patient, including plans for further workup and treatment options. Questions solicited and answered to satisfaction. Patient agrees with current plan of care. DS: Summary Hospital Course Hospital Course: admitted for agitation altered mental status, workup negative. Likely related to underlying dementia. Patient is back to baseline and can be discharged Time
--- NOTE | 2022-07-26 14:29 | PC.NURSE ---
Pt discharging home with daughter. Pt reports no pain at this time. Pt expresses no needs at this time. Pt IV removed. Pt was monitored for any changes in status.
== END 2022-07-26 12:30 | disposition home or self-care (01) ==
LOC: ANHED 16:35 → ANH3MEDSUR 17:37
PROVIDERS: Physician Assistant; Admitting Provider Chiropractor; Emergency Provider Emergency Medicine; PCP Internal Medicine; Visit Provider Chiropractor
DX: R41.82 Altered mental status, unspecified (principal); R33.9 Retention of urine, unspecified; E11.22 Type 2 diabetes mellitus with diabetic chronic kidney disease; I12.9 Hypertensive chronic kidney disease with stage 1 through stage 4 chronic kidney disease, or unspecified chronic kidney disease; N18.30 Chronic kidney disease, stage 3 unspecified; D63.1 Anemia in chronic kidney disease; R79.89 Other specified abnormal findings of blood chemistry; F03.90 Unspecified dementia, unspecified severity, without behavioral disturbance, psychotic disturbance, mood disturbance, and anxiety; R10.9 Unspecified abdominal pain; N32.89 Other specified disorders of bladder; I51.89 Other ill-defined heart diseases; N39.0 Urinary tract infection, site not specified; F41.9 Anxiety disorder, unspecified; J44.9 Chronic obstructive pulmonary disease, unspecified; I65.23 Occlusion and stenosis of bilateral carotid arteries; K21.9 Gastro-esophageal reflux disease without esophagitis; E78.5 Hyperlipidemia, unspecified; G25.81 Restless legs syndrome; M48.00 Spinal stenosis, site unspecified; E55.9 Vitamin D deficiency, unspecified; K44.9 Diaphragmatic hernia without obstruction or gangrene; R94.31 Abnormal electrocardiogram [ECG] [EKG]; R90.82 White matter disease, unspecified; J32.9 Chronic sinusitis, unspecified; Z87.891 Personal history of nicotine dependence; Z85.038 Personal history of other malignant neoplasm of large intestine; Z79.899 Other long term (current) drug therapy
CPT/HCPCS: 36415; 70450; 70553; 74176; 80048; 80053; 81001; 82140; 82607; 83605; 83735; 84443; 85025; 85027; 85610; 85730; 86140; 87086; 87088; 93005; 93306; 93880; 95816; 96360; 99285; A9270; A9577; G0378; J7030

== ENCOUNTER 2022-08-17 17:38 | Outpatient (CLI) | payer MEDICARE, SELFPAY ==
[2022-08-17 18:10] LABS: Albumin Level 4.6 g/dL (3.5-5.1); Anion Gap 8 mmol/L (8-16); Blood Urea Nitrogen 42 mg/dL (7-17); Calcium 9.1 mg/dL (8.4-10.2); Carbon Dioxide 25 mmol/L (22-30); Chloride 104 mmol/L (98-107); Estimated Glomerular Filt Rate 19; Glucose 144 mg/dL (65-110); Phosphorus 4.1 mg/dL (2.5-4.5); Potassium 4.3 mmol/L (3.4-5.0); Sodium 137 mmol/L (137-145)
[2022-08-17 18:18] LABS: Creatinine Urine 221.3 mg/dL
[2022-08-17 18:23] LABS: Parathyroid Intact 177.2 pg/mL (7.5-53.5)
[2022-08-17 19:06] LABS: Total Protein Urine Random 458 mg/dL; Ur Ttl Prot Creatinine Ratio 2.07 mg/mg (0-0.20)
== END 2022-08-17 17:39 | disposition home or self-care (01) ==
PROVIDERS: PCP Internal Medicine; Visit Provider Internal Medicine Nephrology
DX: E11.22 Type 2 diabetes mellitus with diabetic chronic kidney disease (principal); E55.9 Vitamin D deficiency, unspecified; I12.9 Hypertensive chronic kidney disease with stage 1 through stage 4 chronic kidney disease, or unspecified chronic kidney disease; N18.4 Chronic kidney disease, stage 4 (severe); N25.81 Secondary hyperparathyroidism of renal origin
CPT/HCPCS: 36415; 80069; 82306; 82570; 83970; 84156

== ENCOUNTER 2022-08-18 14:10 | Emergency (ER) | payer MEDICARE, SELFPAY ==
[2022-08-18 14:26] VITALS: BP 148/77; PULSE 79; RESP 16; TEMP 36.4; O2SAT 98
--- NOTE | 2022-08-18 14:50 | PC.NURSE ---
Patient states thanks for the help as she walked out of department due to wait time.
== END 2022-08-18 14:50 | disposition left against medical advice (07) ==
PROVIDERS: PCP Internal Medicine
DX: M54.50 Low back pain, unspecified (principal)
CPT/HCPCS: 99199

== ENCOUNTER 2023-03-17 14:19 | Emergency (ER) | payer MEDICARE, SELFPAY ==
[2023-03-17] VITALS (12 sets, daily range): BP systolic 164–178; BP diastolic 72–77; PULSE 80–134; RESP 15–25; TEMP 36.7; O2SAT 96–100
--- NOTE | ~2023-03-17 | CT_ITS ---
EXAMINATION: CT brain wo con DATE: 03/17/2023 14:31 INDICATION: Stroke presenting with incontinence and altered mental status. TECHNIQUE: Computed tomography (CT) of the head was performed without intravenous contrast. Sagittal and coronal reconstructions were performed. The mA was adjusted according to patient size. Iterative reconstruction technique was employed. The dose-length product was 605.33 mGy-cm. COMPARISON: head CT dated 08/03/2022 and brain MR dated 07/25/2022 FINDINGS: No acute intracranial hemorrhage, acute infarction or abnormal extra axial fluid collection. There is moderate scattered white matter hypoattenuation consistent with chronic small vessel ischemic diseas e. Symmetric prominence of the sulci consistent with mild age-appropriate diffuse cerebral volume los s. Ventricles are normal and symmetric. No mass/mass effect. Changes of bilateral intraocular lens re placement. The orbits and mastoid air cells are normal. The callosal thickening and likely mucous ret ention cyst in the right maxillary sinus which demonstrates thickened sclerotic claros consistent with sequela chronic sinusitis. IMPRESSION: 1. No acute intracranial process. 2. Age-related changes including mild diffuse on loss and moderate scattered white matter hypoattenua tion consistent with chronic small vessel ischemic disease. 3. Chronic right maxillary sinusitis. Reviewed, dictated and finalized at location A. M INSPECTOR IMPRESSION: 1. No acute intracranial process. 2. Age-related changes including mild diffuse on loss and moderate scattered wh ite matter hypoattenuation consistent with chronic small vessel ischemic diseas e. 3. Chronic right maxillary sinusitis.
--- NOTE | ~2023-03-17 | XR_ITS ---
EXAMINATION: XR chest 1V portable DATE: 03/17/2023 15:55 INDICATION: Vomiting TECHNIQUE: frontal view of the chest was obtained. COMPARISON: Chest radiograph dated 05/31/2022 FINDINGS: Again seen is eventration along the anterior right hemidiaphragm. No focal airspace opacities, pulmon valentin edema, pleural effusion or pneumothorax. Heart size is normal. Atherosclerotic aorta. Cholecystec jeremy clips in right upper quadrant. IMPRESSION: 1. No acute cardiopulmonary disease. Reviewed, dictated and finalized at location A. [employer]
--- NOTE | 2023-03-17 14:22 | ECG_ITS ---
Measurements Intervals [place] Rate: 92 P: 125 TX: 166 QRS: 151 QRSD: 89 T: 114 QT: 373 QTc: 464 Interpretive Statements SINUS RHYTHM ARM LEADS REVERSED [INVERTED P AND QRS IN I] ATYPICAL ECG COMPARED TO ECG 07/24/2022 13:19:32 ARM LEAD REVERSAL IS NOW PRESENT Electronically Signed On 03-17-2023 16:43:53 PLATE CORRECTOR by Wilfrido Elena M.D.
--- NOTE | 2023-03-17 14:29 | ED.AMS ---
HPI - Altered Mental Status General Chief Complaint: Suspected CVA <Ramonita Galvez MD - Last Filed: 03/21/23 11:58> Stated Complaint: Code Stroke <Ramonita Galvez MD - Last Filed: 03/21/23 11:58> Time Seen by Provider: 03/17/23 14:21 <Ramonita Galvez MD - Last Filed: 03/21/23 11:58> History of Present Illness HPI narrative: Patient is an 82-year-old female history of dementia, here with altered mental status. Family reportedly last saw her at noon when she had lunch, she then went light on her bed and they found her unresponsive and called the EMS. On EMS arrival her GCS was initially 4, she had vomited and stooled herself. As they brought her into the emergency department her mental status significantly improved and she became combative and was placed in restraints. Patient continually saying let me go on my evaluation, fighting with staff and does not provide any history. EMS notes they found her in bed and do not believe that she had any trauma. On chart review it appears she was hospitalized for somewhat similar in July of 2022. They note that she had been difficult to arouse and she had some eye fluttering and word-finding difficulties. No tongue biting, no incontinence at that time. She had been fully alert by the time PD and EMS arrived that time. They consider TIA versus CVA as well as seizure or hypertensive urgency causing her AMS during that admission. She had a normal EEG and no seizures were noted. Her workup at that time was negative, they attributed it to dementia and she was ultimately discharged home. <Ramonita Galvez MD - Last Filed: 03/21/23 11:58> Related Data Home Medications: Home Medications Medication Instructions Recorded Confirmed memantine 10 mg tablet 10 mg PO QPM 11/10/21 11/23/22 diclofenac sodium 75 mg 75 mg PO BID 11/23/22 11/23/22 tablet,delayed release <Ramonita Galvez MD - Last Filed: 03/21/23 11:58> Allergies/Adverse Reactions: Allergies Allergy/AdvReac Type Severity Reaction Status Date / Time codeine Allergy Intermediate Rash Verified 11/23/22 13:00 <Ramonita Galvez MD - Last Filed: 03/21/23 11:58> Review of Systems Review of Systems: ROS unobtainable: Yes unobtainable due to mental status <Ramonita Galvez MD - Last Filed: 03/21/23 11:58> [facility] Past Medical History Medical History: Medical History (Updated 03/19/23 @ 00:00 by Eliza Hamlin) Acute renal failure superimposed on stage 3 chronic kidney disease Agitation AMS (altered mental status) Anemia Anxiety Basal cell carcinoma of face Breast cancer (1989) Status post lumpectomy. No chemo or radiation. C. difficile colitis Carotid stenosis (05/2018) 48% stenosis in the left ICA and 55% in the right ICA. Chronic kidney disease, stage 3 Chronic obstructive pulmonary disease Depression Diet-controlled diabetes mellitus Hemoglobin A1c was 5.9% on 01/22/2021. Elevated lactic acid level Former smoker Gastroesophageal reflux disease Hiatal hernia History of colon cancer Completely excised on right colectomy requiring no other treatment. Hospital discharge follow-up Hyperlipidemia, unspecified Restless legs Shoulder arthritis Spinal stenosis Suspected sleep apnea Patient never completed her sleep study. Syncope (06/12/18) Unresponsive episode Vitamin D deficiency <Ramonita Glavez MD - Last Filed: 03/21/23 11:58> Surgical History Surgical History: Surgical History History of cataract extraction with lens replacement History of cholecystectomy History of colonoscopy 2016 resulting in cauterization of a polyp and caused perforation requiring surgery and partial colon resection. History of hysterectomy History of lumpectomy of right breast History of partial surgical removal of colon Partial colectomy 2016 after polyp was removed and caused perforation of colon History of stress incontinence procedure using tension free va
[2023-03-17 14:35] LABS: Estimated Glomerular Filt Rate 20
[2023-03-17 15:02] LABS: Basophils Absolute Auto 0.1 K/mm3 (0.0-0.1); Basophils Percent Auto 0.6 % (0.2-1.2); Eosinophils Absolute Auto 0.1 K/mm3 (0-0.3); Eosinophils Percent Auto 0.6 % (0-4.4); Hematocrit 36.3 % (37.0-47.0); Hemoglobin 11.6 g/dL (12.0-15.0); Immature Granulocyte Absolute 0.06 K/mm3 (0.00-0.031); Immature Granulocyte Percent A 0.6 % (0-0.5); Lymphocytes Absolute Auto 2.69 K/mm3 (0.9-3.2); Lymphocytes Percent Auto 27.8 % (18.3-44.2); Mean Corpuscular Hemoglobin 30.7 pg (26-34); Mean Platelet Volume 9.1 fl (7.4-10.4); Monocytes Absolute Auto 0.7 K/mm3 (0.1-0.6); Monocytes Percent Auto 7.5 % (2.6-8.5); Neutrophils Absolute Auto 6.1 K/mm3 (1.3-6.7); Neutrophils Percent Auto 62.9 % (45.5-73.1); Platelet Count Result 310 k/mm3 (150-375); Red Blood Count 3.78 M/mm3 (4.2-5.4); Red Cell Distribution Width 13.2 % (11.5-14.5); White Blood Count 9.7 K/mm3 (4.5-10.0)
[2023-03-17 15:04] LABS: Glucose Point of Care 167 mg/dl (65-105)
[2023-03-17] MEDS: LORazepam INJ (*CRX) 2 MG/ML VIAL 1 MG IV PUSH ×3 (15:08→20:47)
[2023-03-17 15:15] LABS: Alanine Aminotransferase 21 U/L (6-35); Albumin Level 4.4 g/dL (3.5-5.1); Alkaline Phosphatase 95 U/L (38-126); Anion Gap 16 mmol/L (8-16); Aspartate Amino Transferase 34 U/L (14-36); Bilirubin,Total 0.5 mg/dL (0.2-1.3); Blood Urea Nitrogen 27 mg/dL (7-17); Calcium 7.8 mg/dL (8.4-10.2); Carbon Dioxide 20 mmol/L (22-30); Chloride 106 mmol/L (98-107); Estimated CRCL calculation 14 ml/min; Estimated Glomerular Filt Rate 21; Ethanol < 10 mg/dL (<10); Glucose 174 mg/dL (65-110); Potassium 3.5 mmol/L (3.4-5.0); Sodium 142 mmol/L (137-145)
[2023-03-17 15:19] LABS: Magnesium 1.1 mg/dL (1.6-2.3); Partial Thromboplastin Time 21.2 SECONDS (22.3-36.8); Prothrombin Time 13.6 Seconds (11.1-14.7)
[2023-03-17 15:26] LABS: Troponin I < 0.012 ng/mL (0.000-0.034)
[2023-03-17 15:37] LABS: Lactic Acid Reflex 3.6 mmol/L (0.7-2.0)
[2023-03-17 15:45] LABS: Appearance Urine Cloudy (Clear); Bacteria Urine 2+ /hpf; Bilirubin Urine Negative (Negative); Blood Urine 2+ (Negative); Color Urine Yellow (Yellow); Glucose Urine UA Trace mg/dL (Negative); Ketones Urine Trace mg/dL (Negative); Leukocyte Esterase Ur Negative LEU/UL (Negative); Need Manual Microscopic Reviewed; Nitrate Urine Negative (Negative); Non Pathogenic Casts >20; Protein Urine 4+ mg/dL (Negative); Specific Grav Ur 1.025 (1.001-1.035); Squamous Epithelial Cell Urine Moderate /hpf (Few); pH Urine 5.5 (5.0-9.0)
[2023-03-17 15:47] LABS: Add Urine Microscopic? YES
[2023-03-17 16:04] LABS: Influenza A QL RT-PCR Negative (Negative); Influenza B QL RT-PCR Negative (Negative); RSV RNA, RT-PCR Negative (Negative); SARS-CoV-2 RNA PCR Positive (Negative)
[2023-03-17] MEDS: MAGNESIUM SULF 2 GM/WATER 50ML 2 GM/50 ML BAG IVPB (16:15)
[2023-03-17] MEDS: OLANZapine 5 MG, WATER, STERILE FOR INJECTION 2.1 ML IM (17:15)
[2023-03-17] MEDS: levETIRAcetam 1000MG/NACL100ML 1,000 MG/100 ML BAG 400 MG IVPB ×2 (17:51→18:09)
[2023-03-17 18:01] LABS: Troponin I 0.036 ng/mL (0.000-0.034)
[2023-03-17 18:26] LABS: Reflex Lactic Acid Yes or No Add Lactic
[2023-03-17 22:17] LABS: Troponin I 0.069 ng/mL (0.000-0.034)
--- NOTE | 2023-03-18 00:22 | PC.NURSE ---
As of 03/18 @0023, pt on waitlist for [facility], [facility], and [facility].
[2023-03-18 01:53] VITALS: BP 139/56; O2SAT 100
[2023-03-18 01:55] VITALS: BP 140/56; PULSE 82; RESP 15; O2SAT 100
[2023-03-18 04:35] VITALS: BP 156/62; PULSE 85; RESP 19; TEMP 36.8; O2SAT 98
[2023-03-18] MEDS: SODIUM CHLORIDE 0.9% IV 1,000 ML 100 ML IV CONT (05:27)
[2023-03-18 05:35] LABS: Basophils Absolute Auto 0.1 K/mm3 (0.0-0.1); Basophils Percent Auto 0.7 % (0.2-1.2); Eosinophils Percent Auto 0.1 % (0-4.4); Hematocrit 33.3 % (37.0-47.0); Hemoglobin 10.8 g/dL (12.0-15.0); Immature Granulocyte Absolute 0.03 K/mm3 (0.00-0.031); Immature Granulocyte Percent A 0.4 % (0-0.5); Lymphocytes Absolute Auto 0.78 K/mm3 (0.9-3.2); Lymphocytes Percent Auto 11.7 % (18.3-44.2); Mean Corpuscular HGB Conc 32.4 g/dl (32-36); Mean Corpuscular Hemoglobin 30.9 pg (26-34); Mean Corpuscular Volume 95.1 fl (80-100); Mean Platelet Volume 8.9 fl (7.4-10.4); Monocytes Absolute Auto 0.7 K/mm3 (0.1-0.6); Monocytes Percent Auto 10.3 % (2.6-8.5); Neutrophils Absolute Auto 5.1 K/mm3 (1.3-6.7); Neutrophils Percent Auto 76.8 % (45.5-73.1); Platelet Count Result 255 k/mm3 (150-375); Red Cell Distribution Width 13.2 % (11.5-14.5); White Blood Count 6.7 K/mm3 (4.5-10.0)
[2023-03-18 05:57] VITALS: BP 138/66; PULSE 82; RESP 16; O2SAT 98
[2023-03-18 06:00] LABS: Anion Gap 8 mmol/L (8-16); Blood Urea Nitrogen 30 mg/dL (7-17); Calcium 8.5 mg/dL (8.4-10.2); Carbon Dioxide 24 mmol/L (22-30); Chloride 109 mmol/L (98-107); Estimated CRCL calculation 13 ml/min; Estimated Glomerular Filt Rate 19; Glucose 107 mg/dL (65-110); Potassium 3.1 mmol/L (3.4-5.0); Sodium 141 mmol/L (137-145)
[2023-03-18 06:16] LABS: Troponin I 0.082 ng/mL (0.000-0.034)
--- NOTE | 2023-03-18 09:18 | PC.NURSE ---
Pt combative with care. Pt does not tolerate monitor, bp, or Pulse O2. Pt refusing to remain still for vitals.
[2023-03-18] MEDS: levETIRAcetam 1000MG/NACL100ML 1,000 MG/100 ML BAG 400 MG IVPB (09:38)
[2023-03-18 12:40] VITALS: BP 185/67
[2023-03-18] MEDS: OLANZapine 5 MG, WATER, STERILE FOR INJECTION 2.1 ML IM (14:14)
--- NOTE | 2023-03-18 14:22 | PC.NURSE ---
Pt combative with care and staff. Pt screaming and trying to pull IV out.
[2023-03-18] MEDS: LORazepam INJ (*CRX) 2 MG/ML VIAL 1 MG IV PUSH (16:32)
--- NOTE | 2023-03-18 16:47 | PC.NURSE ---
Report given to Debbie at [facility].
== END 2023-03-18 16:49 | disposition short-term general hospital (02) ==
PROVIDERS: Emergency Provider Student in an Organized Health Care Education/Training Program; PCP Internal Medicine
DX: R56.9 Unspecified convulsions (principal); U07.1 COVID-19; R40.4 Transient alteration of awareness; F03.90 Unspecified dementia, unspecified severity, without behavioral disturbance, psychotic disturbance, mood disturbance, and anxiety; I65.23 Occlusion and stenosis of bilateral carotid arteries; E11.22 Type 2 diabetes mellitus with diabetic chronic kidney disease; N18.30 Chronic kidney disease, stage 3 unspecified; J44.9 Chronic obstructive pulmonary disease, unspecified; E78.5 Hyperlipidemia, unspecified; E55.9 Vitamin D deficiency, unspecified; D64.9 Anemia, unspecified; K21.9 Gastro-esophageal reflux disease without esophagitis; K44.9 Diaphragmatic hernia without obstruction or gangrene; G25.81 Restless legs syndrome; M19.019 Primary osteoarthritis, unspecified shoulder; Z85.828 Personal history of other malignant neoplasm of skin; Z85.3 Personal history of malignant neoplasm of breast; Z85.038 Personal history of other malignant neoplasm of large intestine; Z87.891 Personal history of nicotine dependence; Z96.1 Presence of intraocular lens; Z98.49 Cataract extraction status, unspecified eye; Z90.49 Acquired absence of other specified parts of digestive tract; Z90.710 Acquired absence of both cervix and uterus
CPT/HCPCS: 36415; 70450; 71045; 80048; 80053; 80307; 81001; 82948; 83605; 83735; 84484; 85025; 85610; 85730; 86850; 86900; 86901; 87086; 87147; 87181; 87186; 87637; 93005; 96361; 96365; 96366; 96367; 96372; 96375; 96376; 99285; J1953; J2060; J2359; J3475; J7030

== ENCOUNTER 2023-04-19 16:42 | Outpatient (CLI) | payer MEDICARE, SELFPAY ==
--- NOTE | ~2023-04-19 | US_ITS ---
EXAMINATION: US venous doppler LE DATE: 04/19/2023 17:23 INDICATION: Other specified soft tissue disorders. TECHNIQUE: Grayscale ultrasound images without and with compression and Doppler ultrasound images of the right lower extremity veins were obtained. COMPARISON: None. FINDINGS: The visualized portions of right common femoral vein, profunda (deep) femoral vein, femoral vein, pop liteal vein, gastrocnemius vein, posterior tibial veins, peroneal veins and greater saphenous vein ou tflow are patent. IMPRESSION: 1. No deep venous thrombosis in the right lower limb. Reviewed, dictated and finalized at location A. ASS OPERATOR
== END 2023-04-19 16:43 | disposition home or self-care (01) ==
LOC: ANHIMG 16:44
PROVIDERS: PCP Internal Medicine; Visit Provider Clinical Nurse Specialist
DX: M79.89 Other specified soft tissue disorders (principal)
CPT/HCPCS: 93971

== ENCOUNTER 2023-04-19 19:02 | Outpatient (NON) | payer MEDICARE, SELFPAY ==
[2023-04-19 19:44] LABS: Appearance Urine Cloudy (Clear); Bacteria Urine 4+ /hpf; Bilirubin Urine Negative (Negative); Blood Urine 1+ (Negative); Color Urine Yellow (Yellow); Glucose Urine UA Negative (Negative); Ketones Urine Negative (Negative); Leukocyte Esterase Ur 2+ LEU/UL (Negative); Nitrate Urine Negative (Negative); Non Pathogenic Casts 0-2; Protein Urine 3+ mg/dL (Negative); Squamous Epithelial Cell Urine None seen /hpf (Few); Urobilinogen Urine 0.2 mg/dL (<2.0); WBC Urine >100 /hpf; pH Urine 5.5 (5.0-9.0)
[2023-04-19 19:47] LABS: Add Urine Microscopic? YES
== END 2023-04-19 19:03 | disposition home or self-care (01) ==
LOC: ANHGOSHLAB 19:09
PROVIDERS: PCP Internal Medicine; Visit Provider Clinical Nurse Specialist
DX: N39.0 Urinary tract infection, site not specified (principal)
CPT/HCPCS: 81001; 87077; 87086; 87186

== ENCOUNTER 2023-05-24 18:55 | Outpatient (NON) | payer MEDICARE, SELFPAY | END 2023-05-24 18:56 | disposition home or self-care (01) | LOC: ANHGOSHLAB 18:57 | PROVIDERS: PCP Internal Medicine; Visit Provider Clinical Nurse Specialist | DX: R39.9 Unspecified symptoms and signs involving the genitourinary system (principal) | CPT/HCPCS: 87086; 87088 ==

== ENCOUNTER 2023-06-01 09:13 | Inpatient (IN) | payer MEDICARE, SELFPAY ==
[2023-06-01] VITALS (8 sets, daily range): BP systolic 135–208; BP diastolic 57–107; PULSE 86–113; RESP 16–22; TEMP 36.2–36.6; O2SAT 97–100
--- NOTE | ~2023-06-01 | CT_ITS ---
EXAMINATION: CT brain wo con DATE: 06/01/2023 10:34 INDICATION: Altered mental status. TECHNIQUE: Computed tomography (CT) of the head was performed without intravenous contrast. The mA wa s adjusted according to patient size. Iterative reconstruction technique was employed. The dose-lengt h product was 1437.67 mGy-cm. COMPARISON: Head CT 03/17/2023, brain MRI 07/25/2022 FINDINGS: There are scattered areas of low attenuation in the cerebral white matter. There is no intr acranial hemorrhage, acute infarction, or abnormal intracranial mass lesion. The ventricles are josh l in size. There are likely changes of ocular lens replacement surgeries. There is near complete opac ification of right maxillary sinus with thickening and sclerosis of the sinus claros, consistent with chronic sinusitis. There is mucosal thickening in some the other measuring paranasal sinuses. The mas toid air cells are normal. IMPRESSION: 1. Stable extensive nonspecific cerebral white matter disease, which likely represents chronic small vessel ischemic disease. 2. Chronic sinusitis. Reviewed, dictated and finalized at location A. IMPRESSION: 1. Stable extensive nonspecific cerebral white matter disease, which likely rep resents chronic small vessel ischemic disease. 2. Chronic sinusitis.
--- NOTE | 2023-06-01 09:11 | ED.AMS ---
HPI - Altered Mental Status General Chief Complaint: Altered Mental Status <Kervin Rosario APRN - Last Filed: 06/01/23 15:23> Stated Complaint: AMS with behavioral issues <Kervin Rosario APRN - Last Filed: 06/01/23 15:23> Time Seen by Provider: 06/01/23 09:20 <Kevrin Rosario APRN - Last Filed: 06/01/23 15:23> Source: patient, EMS, RN notes reviewed and old records reviewed <Kervin Rosario APRN - Last Filed: 06/01/23 15:23> Mode of arrival: ambulatory <Kervin Rosario APRN - Last Filed: 06/01/23 15:23> Limitations: no limitations <Kervin Rosario APRN - Last Filed: 06/01/23 15:23> History of Present Illness HPI narrative: Nannette is an 82-year-old female presenting to the ER today with complaints of altered mental status and behavioral changes. Patient was brought in by EMS from [facility]. Daughter states that she was at the senior care this morning when her mother was not acting appropriate. She reports that her mother wears not walking correctly and acting very lethargic. States that she has history of dementia. Patient it is normally alert but not necessarily oriented per her daughter. Daughter reports that she was transferred from our facility to [facility] in February due altered mental status with a urinary tract infection and having COVID and seems to gone downhill health cantu since then. <Kervin Rosario APRN - Last Filed: 06/01/23 15:23> Related Data Allergies/Adverse Reactions: Allergies Allergy/AdvReac Type Severity Reaction Status Date / Time codeine Allergy Intermediate Rash Verified 05/08/23 14:49 <Kervin Rosario APRN - Last Filed: 06/01/23 15:23> Review of Systems Review of Systems: Pertinent positives per HPI. Patient denies any fever, chills, rash, headache, visual changes, dizziness, cough, runny nose, sore throat, shortness of breath, chest pain, palpitations, nausea, vomiting, diarrhea, constipation, abdominal pain, or any urinary issues. <Kervin Rosario APRN - Last Filed: 06/01/23 15:23> [facility] Past Medical History Medical History: Medical History Acute renal failure superimposed on stage 3 chronic kidney disease Agitation AMS (altered mental status) Anemia Anxiety Basal cell carcinoma of face Breast cancer (1989) Status post lumpectomy. No chemo or radiation. C. difficile colitis Carotid stenosis (05/2018) 48% stenosis in the left ICA and 55% in the right ICA. Chronic kidney disease, stage 3 Chronic obstructive pulmonary disease Depression Diet-controlled diabetes mellitus Hemoglobin A1c was 5.9% on 01/22/2021. Elevated lactic acid level Former smoker Gastroesophageal reflux disease Hiatal hernia History of colon cancer Completely excised on right colectomy requiring no other treatment. Hospital discharge follow-up Hyperlipidemia, unspecified Restless legs Shoulder arthritis Spinal stenosis Suspected sleep apnea Patient never completed her sleep study. Syncope (06/12/18) Unresponsive episode Vitamin D deficiency <Kervin Rosario APRN - Last Filed: 06/01/23 15:23> Surgical History Surgical History: Surgical History History of cataract extraction with lens replacement History of cholecystectomy History of colonoscopy 2016 resulting in cauterization of a polyp and caused perforation requiring surgery and partial colon resection. History of hysterectomy History of lumpectomy of right breast History of partial surgical removal of colon Partial colectomy 2017 after polyp was removed and caused perforation of colon History of stress incontinence procedure using tension free vaginal tape <Kervin Rosario APRN - Last Filed: 06/01/23 15:23> Family History Family History: Family History Mother C
--- NOTE | 2023-06-01 09:22 | ECG_ITS ---
Measurements Intervals [place] Rate: 104 P: -5 HI: 184 QRS: 16 QRSD: 96 T: -3 QT: 377 QTc: 497 Interpretive Statements SINUS TACHYCARDIA ATRIAL AND VENTRICULAR PREMATURE COMPLEXES ST ABNORMALITY IN ANTEROLAT/HIGH LAT LEADS- CONSIDER ISCHEMIA BASELINE ARTIFACT- III ABNORMAL ECG COMPARED TO ECG 03/17/2023 15:42:13 SIN[address]YCARDIA NOW PRESENT ST-T WAVE ABNORMALITY NOW PRESENT Electronically Signed On 06-01-2023 10:42:05 CDT by Andrea Jenkins D.O.
[2023-06-01 09:55] LABS: Basophils Percent Auto 0.5 % (0.2-1.2); Eosinophils Absolute Auto 0.1 K/mm3 (0-0.3); Hematocrit 30.4 % (37.0-47.0); Hemoglobin 9.8 g/dL (12.0-15.0); Immature Granulocyte Absolute 0.03 K/mm3 (0.00-0.031); Immature Granulocyte Percent A 0.4 % (0-0.5); Lymphocytes Absolute Auto 1.45 K/mm3 (0.9-3.2); Lymphocytes Percent Auto 18.1 % (18.3-44.2); Mean Corpuscular HGB Conc 32.2 g/dl (32-36); Mean Corpuscular Hemoglobin 30.3 pg (26-34); Mean Corpuscular Volume 94.1 fl (80-100); Monocytes Absolute Auto 0.7 K/mm3 (0.1-0.6); Monocytes Percent Auto 8.5 % (2.6-8.5); Neutrophils Absolute Auto 5.7 K/mm3 (1.3-6.7); Neutrophils Percent Auto 71.5 % (45.5-73.1); Platelet Count Result 244 k/mm3 (150-375); Red Blood Count 3.23 M/mm3 (4.2-5.4); Red Cell Distribution Width 13.5 % (11.5-14.5)
[2023-06-01 10:04] LABS: Alanine Aminotransferase 18 U/L (6-35); Albumin Level 3.9 g/dL (3.5-5.1); Alkaline Phosphatase 101 U/L (38-126); Anion Gap 7 mmol/L (8-16); Aspartate Amino Transferase 30 U/L (14-36); Bilirubin,Total 0.4 mg/dL (0.2-1.3); Blood Urea Nitrogen 35 mg/dL (7-17); Carbon Dioxide 20 mmol/L (22-30); Chloride 109 mmol/L (98-107); Estimated CRCL calculation 14 ml/min; Estimated Glomerular Filt Rate 21; Glucose 103 mg/dL (65-110); Potassium 3.7 mmol/L (3.4-5.0); Sodium 136 mmol/L (137-145)
[2023-06-01 10:04] LABS: Lactic Acid Reflex 1.2 mmol/L (0.7-2.0)
[2023-06-01] MEDS: LORazepam INJ (*CRX) 2 MG/ML VIAL 1 MG IV PUSH ×2 (10:04→14:13)
[2023-06-01 10:05] LABS: Ammonia < 9 umol/L (9-30)
[2023-06-01 10:12] LABS: Partial Thromboplastin Time 24.8 Seconds (22.3-36.8); Prothrombin Time 13.1 Seconds (11.1-14.7)
[2023-06-01 10:16] LABS: Troponin I 0.031 ng/mL (0.000-0.034)
[2023-06-01 10:21] LABS: Appearance Urine Clear (Clear); Bacteria Urine 1+ /hpf; Bilirubin Urine Negative (Negative); Blood Urine 1+ (Negative); Color Urine Yellow (Yellow); Glucose Urine UA Negative (Negative); Ketones Urine Negative (Negative); Leukocyte Esterase Ur 1+ LEU/UL (Negative); Nitrate Urine Negative (Negative); Non Pathogenic Casts 0-2; Protein Urine 3+ mg/dL (Negative); Specific Grav Ur 1.014 (1.001-1.035); Squamous Epithelial Cell Urine Occasional /hpf (Few); Urobilinogen Urine 0.2 mg/dL (<2.0)
[2023-06-01 10:24] LABS: Add Urine Microscopic? YES; WBC Urine 51-75 /hpf (0-3)
[2023-06-01] MEDS: SODIUM CHLORIDE 0.9% IV 1,000 ML 150 ML IV CONT (12:16)
--- NOTE | 2023-06-01 13:53 | PC.NURSE ---
3 hour EKG attempted, pt screaming and pulling at ekg cords. Pt unable to redirected or calmed by family/ this rn.
[2023-06-01 14:20] LABS: Troponin I 0.048 ng/mL (0.000-0.034)
[2023-06-01] MEDS: levETIRAcetam 1000MG/NACL100ML 1,000 MG/100 ML BAG 400 MG IVPB (14:31)
--- NOTE | 2023-06-01 15:22 | PM.IMHP ---
H&P: HPI History of Present Illness Date/Time: 06/01/23 15:22 Chief Complaint: Altered mental status Narrative: This is 82-year-old female with multiple comorbidities of most importance is dementia. She presents with altered mental status from [facility]. History is taken from the daughter Eron. The story is as follows: The patient has had advanced dementia for years now. She is only oriented to herself and had been living at home with daughters helping every day. She cannot carry a full conversation. Just 1 day prior to admission she was moved to [facility]. While eating breakfast daughter noticed the patient to be staring off into space and her right arm raised in the air in a catatonic state. She then got up to walk and was dragging her right foot and then proceeded to repeatedly bump into a wall in front of her. While in the emergency department the patient was witnessed to have a tonic clonic seizure which was broken with 1.5 mg Ativan push. She was subsequently somnolent after but then required another push of Ativan due to heightened agitation. Of note, around [place] time family noted the patient to be unresponsive in the believe could have had a seizure at that time as well. Serum creatinine 2.2 which is not far off from her baseline. Troponin 0.031 and then 0.048. Urinalysis is abnormal although contaminated. ST depressions in the high lateral and anterolateral leads. CT head demonstrating stable extensive cerebral white matter disease and chronic sinusitis. Lengthy discussion held with the daughter Eron in the ED and then subsequently with other 2 sisters after the patient arrived to IMU. The nature of the patient's status and comorbidities including seizures, advanced dementia, advanced kidney disease, age, functional status and quality of life, possible myocardial infarction and possible stroke were discussed. This sisters agree altogether comfort care measures should be pursued at this time. All concerns and questions were elicited and answered to their satisfaction. DNR. Comfort care. Consult to care coordination for hospice referral. Morphine Ativan and atropine p.r.n.. Review of Systems Review of Systems: ROS unobtainable: Yes unobtainable due to medical condition and unobtainable due to mental status PMFSH Past Medical History Medical History Acute renal failure superimposed on stage 3 chronic kidney disease Agitation AMS (altered mental status) Anemia Anxiety Basal cell carcinoma of face Breast cancer (1989) Status post lumpectomy. No chemo or radiation. C. difficile colitis Carotid stenosis (05/2018) 48% stenosis in the left ICA and 55% in the right ICA. Chronic kidney disease, stage 3 Chronic obstructive pulmonary disease Depression Diet-controlled diabetes mellitus Hemoglobin A1c was 5.9% on 01/22/2021. Elevated lactic acid level Former smoker Gastroesophageal reflux disease Hiatal hernia History of colon cancer Completely excised on right colectomy requiring no other treatment. Hospital discharge follow-up Hyperlipidemia, unspecified Restless legs Shoulder arthritis Spinal stenosis Suspected sleep apnea Patient never completed her sleep study. Syncope (06/12/18) Unresponsive episode Vitamin D deficiency Surgical History Surgical History History of cataract extraction with lens replacement History of cholecystectomy History of colonoscopy 2016 resulting in cauterization of a polyp and caused perforation requiring surgery and partial colon resection. History of hysterectomy History of lumpectomy of right breast History of partial surgical removal of colon Partial colectomy 2016 after polyp was removed and caused perforation of colon History of stress incontinence procedure using tension free vaginal tape Family History Family History (Reviewe
--- NOTE | 2023-06-01 15:37 | ADMGEN ---
This patient, Nannette Nix, was admitted to IMU Room 205-02. Patient/family oriented to hospital policies and general routines including ID bracelet, bed and alarms, visiting hours, pain management, procedures, bathroom and other care routines, personal items, smoking policy, room service/diet, and visiting hours. Information on how to activate the Rapid Response Team has been discussed. Patient/Family are encouraged to report perceived risks to care and to ask questions if they do not understand what they are told or what they should do. Patient arrived to unit around 1450. Family conference with provider around 1500. Family decided to make patient comfort care status.
[2023-06-01] MEDS: LORazepam INJ (*CRX) 2 MG/ML VIAL IV PUSH ×2 (16:04→19:53)
--- NOTE | 2023-06-01 17:41 | PC.NURSE ---
Addendum entered by Veronica Corey RN 06/01/23 18:12: left unit at 1741 Original Note: Nurse called report to Gallito STEINER at 1715. Patient left IMU 205 via bed
--- NOTE | 2023-06-01 17:45 | PC.NURSE ---
Patient arrived to unit via bed from IMU 205.
[2023-06-01] MEDS: MORPHINE SULFATE (*CRX) 2 MG/ML INJ IV PUSH (20:30)
--- NOTE | 2023-06-02 11:04 | PM.CNCAR ---
Assessment and Plan Assessment and plan (1) NSTEMI (non-ST elevated myocardial infarction): Code(s): I21.4 - Non-ST elevation (NSTEMI) myocardial infarction Status: Acute Plan this is an 82-year-old lady who unfortunately appears to have severe end-stage advancing dementia. She was evaluated in the emergency room because of this change in mental status her electrocardiogram does have some lateral ST segment depression and her troponin levels are slightly out of normal range. There is no evidence my opinion of an acute coronary syndrome nor any reason to pursue cardiac workup in this elderly lady who unfortunately has advanced dementia and on whom comfort level care has been requested. We will sign off and do not anticipate following this lady in the hospital Saeid dEgar MD [facility] History of Present Illness History of Present Illness Consult date/time: 06/02/23 11:04 Reason For Visit: New Onset Seizure,AMS,UTI,Anemia Narrative: this is an 82-year-old woman that I am seeing at the request of the hospitalist apparently because of ST segment abnormalities. The patient is not known to me prior to this encounter and her chart has been reviewed. The history is obtained completely from her daughter was in the room as the patient is demented unable to provide any history and is rather combative. The patient apparently has significant dementia and was brought to the hospital because of worsening in her mental status and was brought to the emergency room for that reason last evening. For reasons that are not apparent in the chart a workup was done including electrocardiograms and troponin levels. Her ECG shows sinus rhythm with some lateral ST segment depression. Compared to electrocardiograms that are present in her chart from last February the findings are without significant change. Troponin levels were also done for reasons that are not clear and were slightly at 0.04. This prompted consultation request for me to see her today. The patient is very demented lady who is very combative and covering herself up with sheets. Upon attempt to examine her she strikes out at me and refuses to be examined at all. Because of her advanced dementia which appears to be severe at this point the discussions were had with the primary team and family on admission and decisions were made for comfort care, DNR status and hospice level services are being requested. Her daughter indicates her mother does not have any history of cardiac problems that she has ever been aware of she has been cared for by 1 of her younger sisters. She does have a history of hypertension, no other cardiovascular history that she can recall Review of Systems Review of Systems: ROS unobtainable: Yes unobtainable due to mental status PMFSH Past Medical History Medical History Acute renal failure superimposed on stage 3 chronic kidney disease Agitation AMS (altered mental status) Anemia Anxiety Basal cell carcinoma of face Breast cancer (1989) Status post lumpectomy. No chemo or radiation. C. difficile colitis Carotid stenosis (05/2018) 48% stenosis in the left ICA and 55% in the right ICA. Chronic kidney disease, stage 3 Chronic obstructive pulmonary disease Depression Diet-controlled diabetes mellitus Hemoglobin A1c was 5.9% on 01/22/2021. Elevated lactic acid level Former smoker Gastroesophageal reflux disease Hiatal hernia History of colon cancer Completely excised on right colectomy requiring no other treatment. Hospital discharge follow-up Hyperlipidemia, unspecified Restless legs Shoulder arthritis Spinal stenosis Suspected sleep apnea Patient never completed her sleep study. Syncope (06/12/18) Unresponsive episode Vitamin D deficiency Surgical History Surgical History History of cataract extraction with lens replacement
--- NOTE | 2023-06-02 11:56 | PM.IMPN ---
Progress Note: A&P Assessment and Plan (1) New onset seizure: Code(s): R56.9 - Unspecified convulsions Status: Acute (2) Chronic kidney disease: Qualifiers: Chronic kidney disease stage: unspecified stage Qualified Code(s): N18.9 - Chronic kidney disease, unspecified Code(s): N18.9 - Chronic kidney disease, unspecified Status: Acute (3) Altered mental status: Qualifiers: Altered mental status type: disorientation Qualified Code(s): R41.0 - Disorientation, unspecified Code(s): R41.82 - Altered mental status, unspecified Status: Acute (4) Dementia: Qualifiers: Dementia behavioral or psychological symptom: with agitation Dementia severity: unspecified severity Dementia type: unspecified type Qualified Code(s): F03.911 - Unspecified dementia, unspecified severity, with agitation Code(s): F03.90 - Unspecified dementia, unspecified severity, without behavioral disturbance, psychotic disturbance, mood disturbance, and anxiety Status: Acute (5) NSTEMI (non-ST elevated myocardial infarction): Code(s): I21.4 - Non-ST elevation (NSTEMI) myocardial infarction Status: Acute Plan This is 82-year-old female with multiple comorbidities of most importance is dementia. [facility] History is taken from the daughter Eron. The story is as follows: The patient has had advanced dementia for years now. She is only oriented to herself and had been living at home with daughters helping every day. She cannot carry a full conversation. Just 1 day prior to admission she was moved to [facility]. While eating breakfast daughter noticed the patient to be staring off into space and her right arm raised in the air in a catatonic state. She then got up to walk and was dragging her right foot and then proceeded to repeatedly bump into a wall in front of her. While in the emergency department the patient was witnessed to have a tonic clonic seizure which was broken with 1.5 mg Ativan push. She was subsequently somnolent after but then required another push of Ativan due to heightened agitation. Of note, around Bernard time family noted the patient to be unresponsive in the believe could have had a seizure at that time as well. Serum creatinine 2.2 which is not far off from her baseline. Troponin 0.031 and then 0.048. Urinalysis is abnormal although contaminated. ST depressions in the high lateral and anterolateral leads. CT head demonstrating stable extensive cerebral white matter disease and chronic sinusitis. Lengthy discussion held with the daughter Eron in the ED and then subsequently with other 2 sisters after the patient arrived to IMU. The nature of the patient's status and comorbidities including seizures, advanced dementia, advanced kidney disease, age, functional status and quality of life, possible myocardial infarction and possible stroke were discussed. This sisters agree altogether comfort care measures should be pursued at this time. All concerns and questions were elicited and answered to their satisfaction. DNR. Comfort care. Consult to care coordination for hospice referral. Morphine Ativan and atropine p.r.n.. 06/02/23: Cardiology evaluated for ST- wave depressions, not pursuing any further evaluations or interventions; Added Zyprexa and Ativan. Time Spent With Patient Time with patient: 25 - 35 minutes Subjective Date/time seen: 06/02/23 11:56 Interval history: Seen and examined; Presented with breakthrough seizures and encephalopathy. The decision was made to pursue comfort measures yesterday, 06/01/23. At the bedside, in vague discomfort; daughter is at the bedside and pursuing as much comfort as is obtainable. Review of Systems Review of Systems: ROS unobtainable: Yes unobtainable due to medical condition and unobtainable due to mental status Exam Const: Gene
[2023-06-02] MEDS: OLANZapine 10 MG INJ VIAL 5 MG IM (12:15)
[2023-06-02] MEDS: LORazepam INJ (*CRX) 2 MG/ML VIAL 1 MG IM (13:13)
[2023-06-02] MEDS: LORazepam INJ (*CRX) 2 MG/ML VIAL IV PUSH (18:55)
[2023-06-02 20:00] VITALS: PULSE 91; RESP 22; O2SAT 100
[2023-06-03] MEDS: LORazepam INJ (*CRX) 2 MG/ML VIAL IV PUSH (04:54)
[2023-06-03] MEDS: MORPHINE SULFATE (*CRX) 2 MG/ML INJ IV PUSH ×2 (10:47→13:38)
--- NOTE | 2023-06-03 12:54 | PM.DS ---
DS: Admitting Diagnosis Discharge Date 06/03/23 Admitting Diagnosis 1. Altered mental status 2. Seizures DS: Discharge Diagnosis Discharge Diagnosis (1) New onset seizure: Code(s): R56.9 - Unspecified convulsions Status: Acute Assessment and Plan: Hx of Seizures. Ativan (2) Chronic kidney disease: Qualifiers: Chronic kidney disease stage: unspecified stage Qualified Code(s): N18.9 - Chronic kidney disease, unspecified Code(s): N18.9 - Chronic kidney disease, unspecified Status: Acute (3) Altered mental status: Qualifiers: Altered mental status type: disorientation Qualified Code(s): R41.0 - Disorientation, unspecified Code(s): R41.82 - Altered mental status, unspecified Status: Acute Assessment and Plan: Acute, Severe (4) Dementia: Qualifiers: Dementia behavioral or psychological symptom: with agitation Dementia severity: unspecified severity Dementia type: unspecified type Qualified Code(s): F03.911 - Unspecified dementia, unspecified severity, with agitation Code(s): F03.90 - Unspecified dementia, unspecified severity, without behavioral disturbance, psychotic disturbance, mood disturbance, and anxiety Status: Acute (5) NSTEMI (non-ST elevated myocardial infarction): Code(s): I21.4 - Non-ST elevation (NSTEMI) myocardial infarction Status: Acute (6) DNR (do not resuscitate): Code(s): Z66 - Do not resuscitate Status: Acute Plan This is 82-year-old female with multiple comorbidities of most importance is dementia. She [facility] with [facility]. History is taken from the daughter Eron. The story is as follows: The patient has had advanced dementia for years now. She is only oriented to herself and had been living at home with daughters helping every day. She cannot carry a full conversation. Just 1 day prior to admission she was moved to [facility]. While eating breakfast daughter noticed the patient to be staring off into space and her right arm raised in the air in a catatonic state. She then got up to walk and was dragging her right foot and then proceeded to repeatedly bump into a wall in front of her. While in the emergency department the patient was witnessed to have a tonic clonic seizure which was broken with 1.5 mg Ativan push. She was subsequently somnolent after but then required another push of Ativan due to heightened agitation. Of note, around [place] time family noted the patient to be unresponsive in the believe could have had a seizure at that time as well. Serum creatinine 2.2 which is not far off from her baseline. Troponin 0.031 and then 0.048. Urinalysis is abnormal although contaminated. ST depressions in the high lateral and anterolateral leads. CT head demonstrating stable extensive cerebral white matter disease and chronic sinusitis. Lengthy discussion held with the daughter Eron in the ED and then subsequently with other 2 sisters after the patient arrived to IMU. The nature of the patient's status and comorbidities including seizures, advanced dementia, advanced kidney disease, age, functional status and quality of life, possible myocardial infarction and possible stroke were discussed. This sisters agree altogether comfort care measures should be pursued at this time. All concerns and questions were elicited and answered to their satisfaction. DNR. Comfort care. Consult to care coordination for hospice referral. Morphine Ativan and atropine p.r.n.. Significant findings: Troponin 0.031 and then 0.048.? Urinalysis is abnormal although contaminated.? ST depressions in the high lateral and anterolateral leads.? CT head demonstrating stable extensive cerebral white matter disease and chronic sinusitis. Procedures performed: None Treatment rendered: Comfort measures medications 06/02/23: Cardiology evaluated for ST- wav
--- NOTE | 2023-06-03 14:28 | PC.NURSE ---
Report given to Emmanuelle with [facility] at 1425; report given to Kristyn COLLAZO at [facility] at 1308.
== END 2023-06-03 14:20 | disposition hospice, inpatient (51) | DRG 101 ==
LOC: ANHED 11:44 → ANHIMU 12:26 → ANH2MED 17:42
PROVIDERS: Admitting Provider General Practice; Emergency Provider Nurse Practitioner Family; PCP Internal Medicine; Visit Provider Internal Medicine
DX: R56.9 Unspecified convulsions (principal); N39.0 Urinary tract infection, site not specified; N18.30 Chronic kidney disease, stage 3 unspecified; I65.23 Occlusion and stenosis of bilateral carotid arteries; J44.9 Chronic obstructive pulmonary disease, unspecified; E78.5 Hyperlipidemia, unspecified; E55.9 Vitamin D deficiency, unspecified; K44.9 Diaphragmatic hernia without obstruction or gangrene; K21.9 Gastro-esophageal reflux disease without esophagitis; M19.019 Primary osteoarthritis, unspecified shoulder; M48.00 Spinal stenosis, site unspecified; G47.30 Sleep apnea, unspecified; G25.81 Restless legs syndrome; F41.9 Anxiety disorder, unspecified; F03.90 Unspecified dementia, unspecified severity, without behavioral disturbance, psychotic disturbance, mood disturbance, and anxiety; F32.A Depression, unspecified; Z85.3 Personal history of malignant neoplasm of breast; Z85.038 Personal history of other malignant neoplasm of large intestine; Z51.5 Encounter for palliative care
CPT/HCPCS: 36415; 70450; 80053; 82140; 83605; 84484; 85025; 85610; 85730; 87077; 87086; 87088; 87186; 93005; 96365; 96375; 99285; A9270; J0696; J1953; J2060; J2270; J2359; J7030